=== PATIENT | male | born 1940 | race Caucasian/White ===

== ENCOUNTER 2017-12-21 09:40 | Emergency (ER) | payer MEDICARE, BC ==
[2017-12-21 10:08] VITALS: BP 108/65
[2017-12-21] MEDS ORDERED: Take Home: Acetaminophen/HYDROcodone 325-10 MG, 5 Tab Pack PO ONE (11:23)
--- NOTE | 2017-12-21 11:23 | EDM.PDOC ---
ED HPI GENERAL MEDICAL PROBLEM - General Chief Complaint: Lower Extremity Injury/Pain Stated Complaint: left knee pain Time Seen by Provider: 12/21/17 10:25 Source of Information: Reports: Patient, Family History Limitations: Reports: No Limitations - History of Present Illness INITIAL COMMENTS - FREE TEXT/NARRATIVE: Patient fell on Friday and bruised up his left knee. It has progressively worsened. Only hurts when pressure is applied and he is walking on it. Has been using a compressive knee brace for the swelling. He has no other complaints today. He denies any head injury, no LOC, no dizziness or lightheadedness leading to fall. He does take coumadin. is requesting an INR test due to new dosing. He missed his testing due to his knee injury. Onset Date: 12/19/17 Duration: Getting Worse Location: Reports: Lower Extremity, Left Quality: Reports: Pressure Severity: Moderate Improves with: Reports: Cold Therapy Associated Symptoms: Reports: No Other Symptoms - Related Data Allergies Allergy/AdvReac Type Severity Reaction Status Date / Time No Known Allergies Allergy Verified 12/21/17 10:13 Home Meds: Home Meds Iron 1 tab PO DAILY 03/05/16 [History] Phytonadione [Vitamin K] 1 tab PO ASDIRECTED 03/05/16 [History] Warfarin [Coumadin] 1 tab PO ASDIRECTED 03/05/16 [History] Past Medical History HEENT History: Reports: Cataract Cardiovascular History: Reports: Afib, Heart Failure, Pacemaker, SOB on Exertion Respiratory History: Reports: Sleep Apnea Genitourinary History: Reports: Prostate Disorder Neurological History: Reports: Other (See Below) Other Neuro History: bradykinesia Psychiatric History: Reports: None Endocrine/Metabolic History: Reports: None Hematologic History: Reports: Anemia Immunologic History: Reports: None Oncologic (Cancer) History: Reports: Prostate Dermatologic History: Reports: None - Past Surgical History Head Surgeries/Procedures: Reports: None HEENT Surgical History: Reports: Cataract Surgery GI Surgical History: Reports: Colonoscopy, Hernia Repair/Other Male Surgical History: Reports: Circumcision, TURP-Transurethral Resection of Prostate Musculoskeletal Surgical History: Reports: Shoulder Surgery Social & Family History - Tobacco Use Smoking Status *Q: Unknown Ever Smoked - Alcohol Use Days Per Week of Alcohol Use: 0 Number of Drinks Per Day: 0 Total Drinks Per Week: 0 - Recreational Drug Use Recreational Drug Use: No Drug Use in Last 12 Months: No Review of Systems - Review of Systems Review Of Systems: See Below Constitutional: Reports: No Symptoms Eyes: Reports: No Symptoms Ears: Reports: No Symptoms Nose: Reports: No Symptoms Mouth/Throat: Reports: No Symptoms Respiratory: Reports: No Symptoms Cardiovascular: Reports: No Symptoms GI/Abdominal: Reports: No Symptoms Genitourinary: Reports: No Symptoms Musculoskeletal: Reports: Other (left knee pain, limited rom) Skin: Reports: Bruising (left knee) Neurological: Reports: No Symptoms Psychiatric: Reports: No Symptoms ED EXAM, GENERAL - Physical Exam Exam: See Below Exam Limited By: No Limitations General Appearance: Alert, WD/WN, No Apparent Distress Extremities: Limited Range of Motion (left knee), Other Neurological: Alert, Oriented, CN II-XII Intact, Normal Cognition Course - Vital Signs Last Recorded V/S: Last Vital Signs Temp 35.8 C 12/21/17 09:45 Pulse 73 12/21/17 09:45 Resp 16 12/21/17 09:45 BP 108/65 12/21/17 09:45 Pulse Ox 95 12/21/17 09:45 - Orders/Labs/Meds Orders: Active Orders 24 hr Category Date Time Status Knee 3V Lt [CR] Stat Exams 12/21/17 10:25 Taken Tibia Fibula Lt [CR] Stat Exams 12/21/17 10:25 Taken Labs: Laboratory Tests 12/21/17 Range/Units 11:39 PT 25.1 H D (9.8-11.8) SEC INR 2.4 (2.0-3.5) Meds: Medications Discontinued Medications Generic Name Dose Route Start Last Admin Trade Name Anita PRN Reason Stop Dose Admin Hydrocodone Bitart/Acetaminophen 1 packet 12/21/17 11:23 12/21/17 11:42 Take Home: Acetaminophen/Hydrocodone 325-10mg PO 12/21/17 11:24 1 packet ONETIME ONE Administration Departure - Departure Time of Disposition: 11:50 Disposition: Home, Self-Care 01 Condition: Good Clinical Impression: Contusion of left knee and lower leg - Discharge Information Instructions: Knee Sprain, Adult, [id number] Referrals: Aristeo Lawson MD [Primary Care Provider] - Forms: ED Department Discharge Additional Instructions: I did not see any fractures to your left leg. Your pain is likely related to the soft tissue swelling you are experiencing. Continue to use the knee brace. This will help with the swelling. You also want to elevate your leg and use ice on it. Take the hydrocodone as needed for pain every 4-6 hours. You can also sparingly take some ibuprofen and tylenol for the next couple of days only. If your pain is not improving and is present in 7-10 days, follow up with your primary doctor as an MRI may be needed to rule out any soft tissue damage such as muscle, cartilage, or ligament tears. Please call with any questions or concerns. - Problem List & Annotations (1) Contusion of knee SNOMED Code(s): 34402764 Code(s): S80.00XA - CONTUSION OF UNSPECIFIED KNEE, INITIAL ENCOUNTER Priority: Low - Problem List Review Problem List Initiated/Reviewed/Updated: Yes - My Orders Last 24 Hours: My Active Orders 12/21/17 10:25 Knee 3V Lt [CR] Stat Tibia Fibula Lt [CR] Stat - Assessment/Plan Last 24 Hours: My Active Orders 12/21/17 10:25 Knee 3V Lt [CR] Stat Tibia Fibula Lt [CR] Stat Assessment:: left knee contusion Plan: I did not see any fractures to your left leg. Your pain is likely related to the soft tissue swelling you are experiencing. Continue to use the knee brace. This will help with the swelling. You also want to elevate your leg and use ice on it. Take the hydrocodone as needed for pain every 4-6 hours. You can also sparingly take some ibuprofen and tylenol for the next couple of days only. If your pain is not improving and is present in 7-10 days, follow up with your primary doctor as an MRI may be needed to rule out any soft tissue damage such as muscle, cartilage, or ligament tears. Please call with any questions or concerns.
== END 2017-12-21 11:50 | disposition home or self-care (01) ==
LOC: VM.ED 09:40
DX: S80.02XA Contusion of left knee, initial encounter (principal); I50.9 Heart failure, unspecified; I48.91 Unspecified atrial fibrillation; W10.9XXA Fall (on) (from) unspecified stairs and steps, initial encounter
CPT/HCPCS: 36415; 73562; 73590; 85610; 99283; A9270

== ENCOUNTER 2021-04-14 12:04 | Inpatient (IN) | payer MEDICARE, BC ==
[2021-04-14] MEDS ORDERED: dexAMETHasone 2 MG, dexAMETHasone 4 MG PO ONE ×2 (12:42)
--- NOTE | 2021-04-14 13:33 | EDM.PDOC ---
ED HPI GENERAL MEDICAL PROBLEM - General Chief Complaint: General Stated Complaint: weakness Time Seen by Provider: 04/14/21 12:30 Source of Information: Reports: Patient, Family History Limitations: Reports: No Limitations - History of Present Illness INITIAL COMMENTS - FREE TEXT/NARRATIVE: Patient comes emergency department today from home with his with concerns of worsening weakness. This patient has been "sick" for the past 10 days. Neither his or the patient are able to explain to me what his symptoms of "sick" are for the last 10 days. He was finally seen in the clinic on 04-12-21 and he was diagnosed with Covid. Since his diagnosis of Covid he has felt much more weak despite his "sick for 10 days" of unknown symptoms from the patient and his . Today when he was trying to get up out of bed he just did not have enough energy and he was unable to get out of bed and his could not help him therefore the ambulance was summoned. Upon arrival the patient is alert appropriate. He is rather hard of hearing. It is difficult to obtain a review of systems as the patient really does not answer many questions and tells me I am just tired and weak and he answers no other questions or offer the others complaints. Rest of the review of systems is unable to be obtained as the patient does not offer these answers when I ask him. Treatments [employer]: Reports: IV/IO - Related Data Allergies Allergy/AdvReac Type Severity Reaction Status Date / Time No Known Allergies Allergy Verified 04/14/21 12:49 Home Meds: Home Meds Warfarin [Coumadin] 1 tab PO ASDIRECTED 03/05/16 [History] Abiraterone Acetate [Zytiga] 1,000 mg PO DAILY 10/30/20 [History] Calcium Carb/Vitamin D3/Vit K1 [Calcium + D Soft Chewable Tab] 1 tab PO BID 10/30/20 [History] Cyanocobalamin (Vitamin B12) [Vitamin B12] 1,000 mcg PO DAILY 10/30/20 [History] Furosemide [Lasix] 20 mg PO DAILY PRN 10/30/20 [History] Gabapentin [Neurontin] 200 mg PO BID 10/30/20 [History] Iron 1 tab PO DAILY 10/30/20 [History] Mirtazapine [Remeron] 30 mg PO DAILY 10/30/20 [History] Phytonadione [Vitamin K] 100 mcg PO DAILY 10/30/20 [History] Potassium Chloride 20 meq PO DAILY 10/30/20 [History] Vitamin E 800 units PO BID 10/30/20 [History] predniSONE [Prednisone] 5 mg PO DAILY 10/30/20 [History] Past Medical History HEENT History: Reports: Cataract Cardiovascular History: Reports: Afib, Heart Failure, Pacemaker, SOB on Exertion Respiratory History: Reports: Sleep Apnea Genitourinary History: Reports: Prostate Disorder Neurological History: Reports: Other (See Below) Other Neuro History: bradykinesia Psychiatric History: Reports: None Endocrine/Metabolic History: Reports: None Hematologic History: Reports: Anemia Immunologic History: Reports: None Oncologic (Cancer) History: Reports: Prostate Dermatologic History: Reports: None - Infectious Disease History Infectious Disease History: Reports: Novel Coronavirus - Past Surgical History Head Surgeries/Procedures: Reports: None HEENT Surgical History: Reports: Cataract Surgery Cardiovascular Surgical History: Reports: Other (See Below) Other Cardiovascular Surgeries/Procedures: cardiac cath GI Surgical History: Reports: Colonoscopy, Hernia Repair/Other Male Surgical History: Reports: Circumcision, TURP-Transurethral Resection of Prostate Musculoskeletal Surgical History: Reports: Shoulder Surgery Social & Family History - Family History HEENT: Reports: None Respiratory: Reports: Asthma Other Respiratory Family Hisory: asthma- brother Psychiatric: Reports: Suicide Attempt Other Psychiatric Family History: mother commited suicide Oncologic: Reports: Other (See Below) Other Oncologic Family History: father had "blood cancer" - Tobacco Use Tobacco Use Status *Q: Unknown Ever Used Tobacco - Living Situation & Occupation Living situation: Reports: (Patient has no children of his own but does have children through his .), with Spouse 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 ED EXAM, GENERAL - Physical Exam Exam: See Below Exam Limited By: Other (Some hearing difficulty) General Appearance: Alert, WD/WN, No Apparent Distress Eye Exam: Bilateral Eye: EOMI, PERRL Ears: Normal External Exam Nose: Normal Inspection Throat/Mouth: Normal Inspection Head: Atraumatic, Normocephalic Neck: Normal Inspection Respiratory/Chest: No Respiratory Distress, No Accessory Muscle Use, Chest Non- Tender, Wheezing (Some mild expiratory wheezing bilaterally), Other (No increased work of breathing appears in no distress). No: Crackles, Rales, Rhonchi Cardiovascular: Normal Peripheral Pulses, Regular Rate, Rhythm, No Murmur Peripheral Pulses: 2+: Radial (L), Radial (R) GI/Abdominal: Normal Bowel Sounds, Soft, Non-Tender (Male) Exam: Deferred Rectal (Males) Exam: Deferred Back Exam: Normal Inspection Extremities: Normal Inspection, No Pedal Edema, Normal Capillary Refill Neurological: Alert, Oriented, Normal Cognition, No Motor/Sensory Deficits Psychiatric: Flat Affect Skin Exam: Warm, Dry, Intact, Normal Color, No Rash Course - Vital Signs Last Recorded V/S: Last Vital Signs Temp 99 F 04/14/21 22:00 Pulse 72 04/14/21 22:00 Resp 22 H 04/14/21 22:00 BP 135/90 04/14/21 22:00 Pulse Ox 94 L 04/14/21 23:18 - Orders/Labs/Meds Orders: Active Orders 24 hr Category Date Time Status CULTURE BLOOD [BC] Stat Lab 04/14/21 13:50 Received CULTURE BLOOD [BC] Stat Lab 04/14/21 14:05 Results Sodium Chloride 0.9% [Saline Flush] Med 04/14/21 12:40 Active 10 ml FLUSH ASDIRECTED PRN Blood Culture x2 Reflex Set [OM.PC] Stat Ot 04/14/21 12:40 Ordered Peripheral IV Insertion Adult [OM.PC] Stat Ot 04/14/21 12:40 Ordered Medication Orders Ceftriaxone Sodium (Ceftriaxone 1 Gm Vial) 1 gm IVPUSH DAILY [facility] Last Admin: 04/15/21 00:10 Dose: 1 gm Documented by: FÉLIX Cholecalciferol (Cholecalciferol (Vitamin D3) 25 Mcg Tab) 25 mcg PO DAILY [facility] Last Admin: 04/14/21 18:38 Dose: 25 mcg Documented by: ZARA Gabapentin (Gabapentin 100 Mg Cap) 100 mg PO BEDTIME [facility] Last Admin: 04/14/21 20:41 Dose: 100 mg Documented by: FÉLIX Mirtazapine (Mirtazapine 30 Mg Tab) 30 mg PO BEDTIME [facility] Last Admin: 04/14/21 20:41 Dose: 30 mg Documented by: FÉLIX Ondansetron HCl (Ondansetron 4 Mg Tab.Dis) 4 mg PO Q4H PRN PRN Reason: nausea, able to take PO Ondansetron HCl (Ondansetron 4 Mg/2 Ml Sdv) 4 mg IV Q4H PRN PRN Reason: Nausea/Vomiting Phytonadione (Phytonadione 100 Mcg Tab) 100 mcg PO DAILY [facility] Potassium Chloride (Potassium Chloride 20 Meq Tab.Er) 40 meq PO BIDMEALS [facility] Last Admin: 04/14/21 18:37 Dose: 40 meq Documented by: ZARA Prednisone (Prednisone 5 Mg Tab) 5 mg PO DAILY [facility] Sodium Chloride (Sodium Chloride 0.9% 10 Ml Syringe) 10 ml FLUSH ASDIRECTED PRN PRN Reason: Keep Vein Open Last Admin: 04/15/21 00:10 Dose: 10 ml Documented by: FÉLIX Warfarin Sodium (Warfarin 2.5 Mg Tab) 2.5 mg PO [email or web address] [facility] Warfarin Sodium (Warfarin 5 Mg Tab) 5 mg PO [email or web address] [facility] Last Admin: 04/14/21 20:42 Dose: 5 mg Documented by: FÉLIX Labs: Laboratory Tests 04/14/21 04/14/21 04/14/21 Range/Units 13:11 13:50 13:50 WBC 3.0 L (4.0-10.0) x10^3/uL RBC 4.23 L (4.5-6.0) x10^6/uL Hgb 12.7 L (14.0-18.0) g/dL Hct 38.5 L (40.0-52.0) % MCV 91.0 (78.0-93.0) fL MCH 30.0 (26.0-32.0) pg MCHC 33.0 (32.0-36.0) g/dL RDW Coeff of Nini 13.9 (10.0-15.0) % Plt Count 122 L (130-400) x10^3/uL Add Manual Diff Yes Neutrophils % (Manual) 67 (50-80) % Band Neutrophils % 2 (0-6) % Lymphocytes % (Manual) 14 L (25-50) % Reactive Lymphs % 8 H (0) % Monocytes % (Manual) 9 (2-11) % Platelet Estimate Decreased L Giant Platelets Rare H PT (9.9-12.5) SEC INR (2.0-3.5) APTT (25.6-32.8) SEC D-Dimer, Quantitative (<=0.58) mg/LFEU Sodium 144 (136-145) mmol/L Potassium 2.9 L* (3.5-5.1) mmol/L Chloride 105 (98-107) mmol/L Carbon Dioxide 30 (21-32) mmol/L Anion Gap 11.9 (5-15) mmol/L BUN 12 (7-18) mg/dL Creatinine 1.2 (0.70-1.30) mg/dL Est Cr Clr Drug Dosing TNP Estimated GFR (MDRD) 58 Glucose 97 (70-99) mg/dL Lactic Acid (0.4-2.0) mmol/L Calcium 9.1 (8.5-10.1) mg/dL Corrected Calcium 9.5 (8.5-10.1) mg/dL Magnesium (1.8-2.4) mg/dL Ferritin (26-388) ng/mL Total Bilirubin 0.7 (0.2-1.0) mg/dL AST 29 (15-37) U/L ALT 18 (16-63) U/L Alkaline Phosphatase 50 (46-116) U/L Lactate Dehydrogenase 206 (85-227) U/L Troponin I High Sens 37 (<=76) ng/L C-Reactive Protein 2.6 H (<=0.9) mg/dL Total Protein 7.3 (6.4-8.2) g/dL Albumin 3.5 (3.4-5.0) g/dL Globulin 3.8 Albumin/Globulin Ratio 0.92 Procalcitonin (0.1-0.50) ng/mL Urine Color Yellow (YELLOW) Urine Appearance Slightly cloudy H (CLEAR) Urine pH 6.0 (5.0-8.0) Ur Specific Humphreys >=1.030 Urine Protein 100 H (NEGATIVE) mg/dL Urine Glucose (UA) Negative (NEGATIVE) mg/dL Urine Ketones Negative (NEGATIVE) mg/dL Urine Occult Blood Moderate H (NEGATIVE) Urine Nitrite Negative (NEGATIVE) Urine Bilirubin Negative (NEGATIVE) Urine Urobilinogen 0.2 (0.2) EU/dL Ur Leukocyte Esterase Negative (NEGATIVE) U Hyaline Cast (Auto) Moderate Urine RBC 10-20 H (NOT SEEN) /HPF Urine WBC 0-5 (NOT SEEN) /HPF Ur Squamous Epith Cells Few H (NOT SEEN) /HPF Urine Bacteria Not seen (NOT SEEN) /HPF Urine Mucus Not seen (NOT SEEN) /LPF 04/14/21 04/14/21 04/14/21 Range/Units 13:50 13:50 13:50 WBC (4.0-10.0) x10^3/uL RBC (4.5-6.0) x10^6/uL Hgb (14.0-18.0) g/dL Hct (40.0-52.0) % MCV (78.0-93.0) fL MCH (26.0-32.0) pg MCHC (32.0-36.0) g/dL RDW Coeff of Nini (10.0-15.0) % Plt Count (130-400) x10^3/uL Add Manual Diff Neutrophils % (Manual) (50-80) % Band Neutrophils % (0-6) % Lymphocytes % (Manual) (25-50) % Reactive Lymphs % (0) % Monocytes % (Manual) (2-11) % Platelet Estimate Giant Platelets PT (9.9-12.5) SEC INR (2.0-3.5) APTT (25.6-32.8) SEC D-Dimer, Quantitative 0.43 (<=0.58) mg/LFEU Sodium (136-145) mmol/L Potassium (3.5-5.1) mmol/L Chloride (98-107) mmol/L Carbon Dioxide (21-32) mmol/L Anion Gap (5-15) mmol/L BUN (7-18) mg/dL Creatinine (0.70-1.30) mg/dL Est Cr Clr Drug Dosing Estimated GFR (MDRD) Glucose (70-99) mg/dL Lactic Acid 1.7 (0.4-2.0) mmol/L Calcium (8.5-10.1) mg/dL Corrected Calcium (8.5-10.1) mg/dL Magnesium (1.8-2.4) mg/dL Ferritin 450 H (26-388) ng/mL Total Bilirubin (0.2-1.0) mg/dL AST (15-37) U/L ALT (16-63) U/L Alkaline Phosphatase (46-116) U/L Lactate Dehydrogenase (85-227) U/L Troponin I High Sens (<=76) ng/L C-Reactive Protein (<=0.9) mg/dL Total Protein (6.4-8.2) g/dL Albumin (3.4-5.0) g/dL Globulin Albumin/Globulin Ratio Procalcitonin (0.1-0.50) ng/mL Urine Color (YELLOW) Urine Appearance (CLEAR) Urine pH (5.0-8.0) Ur Specific Humphreys Urine Protein (NEGATIVE) mg/dL Urine Glucose (UA) (NEGATIVE) mg/dL Urine Ketones (NEGATIVE) mg/dL Urine Occult Blood (NEGATIVE) Urine Nitrite (NEGATIVE) Urine Bilirubin (NEGATIVE) Urine Urobilinogen (0.2) EU/dL Ur Leukocyte Esterase (NEGATIVE) U Hyaline Cast (Auto) Urine RBC (NOT SEEN) /HPF Urine WBC (NOT SEEN) /HPF Ur Squamous Epith Cells (NOT SEEN) /HPF Urine Bacteria (NOT SEEN) /HPF Urine Mucus (NOT SEEN) /LPF 04/14/21 04/14/21 04/14/21 Range/Units 13:50 13:50 13:50 WBC (4.0-10.0) x10^3/uL RBC (4.5-6.0) x10^6/uL Hgb (14.0-18.0) g/dL Hct (40.0-52.0) % MCV (78.0-93.0) fL MCH (26.0-32.0) pg MCHC (32.0-36.0) g/dL RDW Coeff of Nini (10.0-15.0) % Plt Count (130-400) x10^3/uL Add Manual Diff Neutrophils % (Manual) (50-80) % Band Neutrophils % (0-6) % Lymphocytes % (Manual) (25-50) % Reactive Lymphs % (0) % Monocytes % (Manual) (2-11) % Platelet Estimate Giant Platelets PT 22.8 H D (9.9-12.5) SEC INR 2.1 (2.0-3.5) APTT 37.6 H (25.6-32.8) SEC D-Dimer, Quantitative (<=0.58) mg/LFEU Sodium (136-145) mmol/L Potassium (3.5-5.1) mmol/L Chloride (98-107) mmol/L Carbon Dioxide (21-32) mmol/L Anion Gap (5-15) mmol/L BUN (7-18) mg/dL Creatinine (0.70-1.30) mg/dL Est Cr Clr Drug Dosing Estimated GFR (MDRD) Glucose (70-99) mg/dL Lactic Acid (0.4-2.0) mmol/L Calcium (8.5-10.1) mg/dL Corrected Calcium (8.5-10.1) mg/dL Magnesium 2.2 (1.8-2.4) mg/dL Ferritin (26-388) ng/mL Total Bilirubin (0.2-1.0) mg/dL AST (15-37) U/L ALT (16-63) U/L Alkaline Phosphatase (46-116) U/L Lactate Dehydrogenase (85-227) U/L Troponin I High Sens (<=76) ng/L C-Reactive Protein (<=0.9) mg/dL Total Protein (6.4-8.2) g/dL Albumin (3.4-5.0) g/dL Globulin Albumin/Globulin Ratio Procalcitonin <0.05 L (0.1-0.50) ng/mL Urine Color (YELLOW) Urine Appearance (CLEAR) Urine pH (5.0-8.0) Ur Specific Humphreys Urine Protein (NEGATIVE) mg/dL Urine Glucose (UA) (NEGATIVE) mg/dL Urine Ketones (NEGATIVE) mg/dL Urine Occult Blood (NEGATIVE) Urine Nitrite (NEGATIVE) Urine Bilirubin (NEGATIVE) Urine Urobilinogen (0.2) EU/dL Ur Leukocyte Esterase (NEGATIVE) U Hyaline Cast (Auto) Urine RBC (NOT SEEN) /HPF Urine WBC (NOT SEEN) /HPF Ur Squamous Epith Cells (NOT SEEN) /HPF Urine Bacteria (NOT SEEN) /HPF Urine Mucus (NOT SEEN) /LPF Meds: Medications Generic Name Dose Route Start Last Admin Trade Name Freq PRN Reason Stop Dose Admin Ceftriaxone Sodium 1 gm 04/14/21 23:45 04/15/21 00:10 Ceftriaxone 1 Gm Vial IVPUSH 1 gm DAILY ELSIE Administration Cholecalciferol 25 mcg 04/14/21 16:15 04/14/21 18:38 Cholecalciferol (Vitamin D3) 25 Mcg Tab PO 25 mcg DAILY ELSIE Administration Gabapentin 100 mg 04/14/21 20:00 04/14/21 20:41 Gabapentin 100 Mg Cap PO 100 mg BEDTIME ELSIE Administration Mirtazapine 30 mg 04/14/21 20:00 04/14/21 20:41 Mirtazapine 30 Mg Tab PO 30 mg BEDTIME ELSIE Administration Ondansetron HCl 4 mg 04/14/21 16:21 Ondansetron 4 Mg Tab.Dis PO Q4H PRN nausea, able to take PO Ondansetron HCl 4 mg 04/14/21 16:21 Ondansetron 4 Mg/2 Ml Sdv IV Q4H PRN Nausea/Vomiting Phytonadione 100 mcg 04/15/21 08:00 Phytonadione 100 Mcg Tab PO DAILY ELSIE Potassium Chloride 40 meq 04/14/21 16:15 04/14/21 18:37 Potassium Chloride 20 Meq Tab.Er PO 40 meq BIDMEALS ELSIE Administration Prednisone 5 mg 04/15/21 08:00 Prednisone 5 Mg Tab PO DAILY ELSIE Sodium Chloride 10 ml 04/14/21 12:40 04/15/21 00:10 Sodium Chloride 0.9% 10 Ml Syringe FLUSH 10 ml ASDIRECTED PRN Administration Keep Vein Open Warfarin Sodium 2.5 mg 04/16/21 20:00 Warfarin 2.5 Mg Tab PO [email or web address] [facility] Warfarin Sodium 5 mg 04/14/21 20:00 04/14/21 20:42 Warfarin 5 Mg Tab PO 5 mg [email or web address] [facility] Administration Discontinued Medications Generic Name Dose Route Start Last Admin Trade Name Freq PRN Reason Stop Dose Admin Dexamethasone 2 mg/ 6 mg 04/14/21 12:42 04/14/21 12:55 Dexamethasone 4 mg PO 04/14/21 12:43 6 mg ONETIME ONE Administration Lactated Ringer's 1,000 mls @ 150 mls/hr 04/14/21 13:45 04/14/21 14:35 Ringers, Lactated IV 150 mls/hr ASDIRECTED [facility] Administration Potassium Chloride 10 meq/ 50 mls @ 50 mls/hr 04/14/21 14:39 04/14/21 14:45 Premix IV 04/14/21 15:38 50 mls/hr ONETIME ONE Administration Potassium Chloride 20 meq/ 50 mls @ 50 mls/hr 04/14/21 16:05 04/14/21 18:37 Premix IV 04/14/21 17:04 Not Given ONETIME ONE - Radiology Interpretation Free Text/Narrative:: Chest x-ray per radiology shows patchy pulmonary infiltrates bilaterally, left greater than right. Findings are likely infectious, inflammatory in nature as can be seen with atypical viral pneumonia. This is consistent with patient's history of Covid. - Re-Assessments/Exams Free Text/Narrative Re-Assessment/Exam: Due to the patient's recent diagnosis of Covid Covid precautions were taken. Blood cultures x2. IV was established of LR with 250 mill bolus and 150 mils an hour. Dexamethasone 6 mg p.o. Laboratory evaluation with leukopenia with a WBC of 3.0 hemoglobin 12.7. His D-dimer is negative at 0.43. CMP shows a sodium of 144, potassium 2.9, normal BUN/creatinine. Magnesium normal. Ferritin 450. Lactate dehydrogenase 206. Troponin negative at 37. CRP minimally elevated at 2.6. Procalcitonin less than 0.05. Urinalysis is quite concentrated with urine specific gravity greater than 1.030, 100 of protein, moderate occult blood U RBCs 1020 although this is a urine catheter quick cath sample U WBC 05. It is somewhat difficult to ascertain what his illnesses been prior to today other than knowing that he had a positive Covid test on the . His chest x- ray is consistent with patchy viral pneumonia. He is really not in any re spiratory distress. He is not requiring any oxygenation. Although he is quite hypokalemic. He did have 10 mEq given over an hour in the emergency department. With his severe weakness and his inability to care for himself at home I spoke with Dr. Marybeth Levine HPI ER COURSE findings and concerns were relayed to her. SHe came and saw the patient in the ED and will admit him The patient and his are comfortable with this plan and their questions answered. Departure - Departure Time of Disposition: 16:30 Disposition: Admitted As Inpatient 67 Clinical Impression: Hypokalemia, Pneumonia due to COVID-19 virus, Generalized weakness - Discharge Information Sepsis Event Note (ED) - Evaluation Sepsis Screening Result: No Definite Risk - My Orders Last 24 Hours: My Active Orders 04/14/21 12:40 Sodium Chloride 0.9% [Saline Flush] 10 ml FLUSH ASDIRECTED PRN Blood Culture x2 Reflex Set [OM.PC] Stat Peripheral IV Insertion Adult [OM.PC] Stat 04/14/21 13:50 CULTURE BLOOD [BC] Stat 04/14/21 14:05 CULTURE BLOOD [BC] Stat - Assessment/Plan Last 24 Hours: My Active Orders 04/14/21 12:40 Sodium Chloride 0.9% [Saline Flush] 10 ml FLUSH ASDIRECTED PRN Blood Culture x2 Reflex Set [OM.PC] Stat Peripheral IV Insertion Adult [OM.PC] Stat 04/14/21 13:50 CULTURE BLOOD [BC] Stat 04/14/21 14:05 CULTURE BLOOD [BC] Stat
--- NOTE | 2021-04-14 13:34 | PCM.EKG ---
#1 Interpretation EKG Date: 04/14/21 Time: 13:01 Rhythm: A-Fib Rate (Beats/Min): 93 Staples: Normal P-Wave: Absent QRS: Normal ST-T: Normal QT: Normal Comparison: NA - No Prior EKG
--- NOTE | 2021-04-14 13:40 | CR ---
[id number] RAD/RAD Chest PA or AP 1V EXAM: RAD Chest PA or AP 1V INDICATION: WEAKNESS, COVID-19. COMPARISON: April 14, 2021. DISCUSSION: Left chest wall cardiac conduction device. Cardiomediastinal silhouette is stable in size and contour. Patchy pulmonary infiltrates bilaterally, left greater than right. No pneumothorax or pleural effusion. IMPRESSION: Patchy pulmonary infiltrates bilaterally, left greater than right. Findings are likely infectious/inflammatory in nature as can be seen with atypical/viral pneumonia. This is consistent with patient's history of COVID. Tom Reza DO 04/14/21 [id number] Thank you for allowing us to participate in the care of your patient.
[2021-04-14] MEDS ORDERED: Lactated Ringers 1,000 ML IV SCH (13:45)
[2021-04-14 14:35] LABS: PTT,PARTIAL THROMBOPLSTIN TIME 37.6 SEC (25.6-32.8)
[2021-04-14 14:37] LABS: CHLORIDE,CL 105 mmol/L (98-107); SODIUM,NA 144 mmol/L (136-145)
[2021-04-14 14:39] LABS: ANION GAP 11.9 mmol/L (5-15)
[2021-04-14] MEDS ORDERED: Potassium Chloride Riders 10 MEQ in Premix Bag 1 BAG IV ONE (14:39)
[2021-04-14] MEDS ORDERED: Potassium Chloride Riders 20 MEQ in Premix Bag 1 BAG IV ONE (16:05)
[2021-04-14] MEDS ORDERED: Ondansetron 4 MG Tab.DIS PO PRN (16:21)
[2021-04-14] MEDS ORDERED: Ondansetron 4 MG/2 ML SDV IV PRN (16:21)
[2021-04-14] MEDS: Potassium Chloride 20 MEQ Tab.ER PO SCH (18:37)
[2021-04-14] MEDS: Cholecalciferol (Vitamin D3) 25 MCG Tab PO SCH (18:38)
[2021-04-14] MEDS: Mirtazapine 30 MG Tab PO SCH (20:41)
[2021-04-14] MEDS: Gabapentin 100 MG Cap PO SCH (20:41)
--- NOTE | 2021-04-14 20:41 | HP ---
CHIEF COMPLAINT: Weakness. HISTORY OF PRESENT ILLNESS: This is a 80-year-old male who was seen in the clinic on 04/12/2021 with nine days of COVID symptoms. He tested positive. Weakness and fatigue were his primary symptoms. He has not been more short of breath. He is just coughing a little. No fevers. He is always achy per his . He did not get any infusions as it was reported that he was greater than 10 days from the onset of symptoms yesterday when the note was put in. He therefore was at home with his . He was getting weaker. He was having some urinary frequency. His UA did not show any infection today, just some blood, but it had to be a cath specimen. He did have a scratchy throat and rhinorrhea to start with. was reported to have those symptoms in the clinic too in the note about her . However, she denied that she was having any symptoms. The patient with further review did not get the COVID vaccine because of all his other medical problems going on per his . They do not get the flu shot. He has prostate cancer with metastatic disease. He is on Lupron and Zytiga. He is not a good candidate for chemotherapy. He is on Xgeva monthly for his bones. He has some ataxia due to neuropathy. He is on Coumadin for atrial fibrillation. He had actually seen his primary care doctor about six weeks ago just for weakness and was started on Home Health, having three falls at home. His is most concerned about how he is going to use the bathroom at home. He was incontinent before he came in. ALLERGIES: None. MEDICATION LIST: Reviewed. He is on Coumadin 5 mg Friday, Friday, Friday, and 2.5 Friday, Friday, Friday. He is on the prostate cancer medications as listed above. He is on Pepcid 20 mg twice daily, just started for "COVID visit," Neurontin 100 mg two twice daily, potassium one tablet every day, but the patient's reports that over the last two days, he was not getting it. Zytiga 1000 daily; prednisone 5 mg daily; Lasix 20 mg as needed for swelling, does not look like he uses it consistently; Remeron 30 mg at bedtime; calcium and vitamin D; horse chestnut extract; vitamin B12; vitamin E; iron pills; vitamin K 1000 mcg daily. PAST MEDICAL HISTORY: Reviewed. He has bipolar disorder in the past; prostate cancer with bony metastasis; chronic atrial fibrillation, failed cardioversion, on Coumadin; congestive heart failure with pacemaker, his EF is 65% in 2016; he has of polyneuropathy, but no history of diabetes; obstructive sleep apnea; vitamin B12 deficiency; vitamin E deficiency. PAST SURGICAL HISTORY: The patient has had prostate vaporization in 2013, shoulder surgery on the right for tendons, hernia repair, circumcision, and cardiac cath. FAMILY HISTORY: Both parents are . Father had some type of bone cancer. SOCIAL HISTORY: The patient is . He lives at home with his . 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 They do not have any children listed. He is a nonsmoker. No history of chronic lung disease. He does though use oral tobacco. REVIEW OF SYSTEMS: General: Actually quite difficult from the patient. He is slow to respond. He is hard of hearing. He is quite sleepy, but does answer some questions with yes or no, but lets his speak for him. He had lost about 7 pounds when he came in for the COVID visit. HEENT: No current sore throat. No reported trouble swallowing. Chest: The patient has no chest pain. Otherwise, all systems reviewed and found to be negative unless stated in the HPI. PHYSICAL EXAMINATION: Vital Signs: At the hospital admission His temperature 98.9; pulse 104, irregular; blood pressure 146/58; respiratory rate 22; and O2 of 96% on 1 L. General: He is in no acute distress. Heart: Irregularly irregular. Lungs: Lung sounds are decreased, but no crackles, no wheezes, just decreased respiratory effort. Abdomen: Positive bowel sounds. Soft, nondistended, nontender. Extremities: Warm and dry. No edema. Mental Status: He is alert. He is able to verbalize that he is at the hospital. Skin: Otherwise, his skin is warm and dry, and he is not overly pale. LABORATORY WORK: Does show his white count 3, hemoglobin 12.7, platelets 122. INR 2.1. D-dimer 0.4. Sodium 144, potassium 2.9, chloride 105, bicarb 30, BUN 12, creatinine 1.2, glucose 97, lactic 1.7, calcium 9.1, magnesium 2.2, ferritin 450, bilirubin 0.7, AST 29, ALT 18, alkaline phosphatase 50, LDH 206, troponin 37, CRP 2.6, albumin 3.5, procalcitonin less than 0.05. Urine; 0-5 wbc's, 10-20 rbc's on a cath specimen, suspect it was somewhat traumatic. His EKG showed atrial fibrillation, rate of 53, some mild lateral and inferior ST depression and T-wave flattening. Chest x-ray was consistent with bilateral infiltrates suspicious for COVID-19. A pacemaker is noted in place. ASSESSMENT: 1. COVID-19 infection day 11 with weakness and fatigue. 2. Severe hypokalemia, likely due to not taking his medications. He has not had any diarrhea reported or vomiting to have worsened this. 3. Atrial fibrillation, on chronic anticoagulation. He is rate controlled. 4. Metastatic prostate cancer, on oral treatments. 5. History of bipolar disorder. 6. History of congestive heart failure. No acute symptoms. 7. B12 deficiency. 8. Obstructive sleep apnea. 9. Pacemaker. 10.Neuropathy. PLAN: The patient is admitted for acute cares. We will replace his potassium IV and orally. If he is unable to take his oral potassium, we will have to give him more IV bumps. He already received 10 mEq in the ER. We will monitor with telemetry. We will be replacing potassium. We will start him on some vitamin D. He did get a dose of dexamethasone it looks like in the ER, but we will not continue that as he is not requiring any oxygen. His sats were over 90% on room air. I did discuss also with Infectious Disease and they did not feel that all the vitamins and things were clinically indicated, especially if there was going to be some difficulty with swallowing pills. The focus needs to be replacing the potassium. Initially, his thought he was a code level 2 and in fact in his home health orders, it looks like he was no CPR, but then later she told the nurse that she found some papers and he wanted CPR and he told her that even though when I asked the patient he really looked at me like he did not quite know how to answer. Therefore, the patient is code level 1, but discussed in depth with the patient and his how given his age and medical comorbidities, if his condition was to deteriorate, he would be likely to have no good outcome if he had to go through CPR and intubation and we will continue to discuss this with him daily. Hopefully, he is more alert and rested up tomorrow. Also on exam, there is no focal weakness to suggest the patient has had any stroke. We will continue his home medications for moods. We will continue his same warfarin. We will repeat an INR and lab work tomorrow. MKA: 04/14/2021 18:01:51 MODL: 04/14/2021 20:35:07 /[id number] SUSANNAH
[2021-04-14] MEDS: Warfarin 5 MG Tab PO SCH (20:42)
[2021-04-15] MEDS: cefTRIAXone 1 GM Vial IVPUSH SCH ×2 (00:10→09:46)
[2021-04-15] MEDS: Sodium Chloride 0.9% 10 ML Syringe FLUSH PRN ×3 (00:10→21:05)
[2021-04-15 09:01] LABS: ANION GAP 12.7 mmol/L (5-15)
[2021-04-15] MEDS ORDERED: Potassium Chloride 20 MEQ Tab.ER PO SCH (09:30)
[2021-04-15] MEDS: Phytonadione 100 MCG Tab PO SCH (09:46)
[2021-04-15] MEDS: Cholecalciferol (Vitamin D3) 25 MCG Tab PO SCH (09:47)
[2021-04-15] MEDS: predniSONE 5 MG Tab PO SCH (09:47)
[2021-04-15] MEDS: Potassium Chloride 20 MEQ Tab.ER PO SCH ×2 (09:47)
--- NOTE | 2021-04-15 12:47 | PN ---
Progress Note for SOURAV VELAZCO Date: 04/15/2021 Room #: VM.209 SUBJECTIVE: This is hospital day #2 on a 80-year-old admitted with a COVID-19 infection diagnosed on the but likely symptomatic now for 12 days. Main symptom has been weakness and fatigue. He was just sleeping yesterday. This morning, he is sitting up. He is alert. He did not eat his breakfast, but I helped him get his lunch ready, and he took several bites and drank all the liquids except the coffee. He did good. He was not swallowing. He is just coughing a little. He is not short of breath. He has not been hypoxic. He has been on continuous O2 monitoring, which has been excellent. He had some oxygen placed on him overnight when it dropped to just 91, but he took it off himself this morning. He is not having any pain. He has been up out of bed with nursing to the bathroom. They said, he moved pretty good. He has had some PVCs on telemetry, but his potassium was low. He had missed a couple of doses at home. He has been afebrile other than 100.2 overnight. He was a little confused then, but this morning, he is hard to hearing, but he is oriented. He answers questions appropriately. He asked his on the phone if he fell at home. He had not in the recent days but had previously fell at home. OBJECTIVE: Vital Signs: His temperature is 98, pulse 65, blood pressure 116/65, respiratory rate 18, and O2 of 98% on room air. General: He is in no acute distress. Heart: Regular rate and rhythm. S1, S2 without murmur. Lungs: Lung sounds are clear to auscultation bilaterally without crackles or wheezes. Abdomen: Nondistended, nontender. Extremities: Warm and dry. No edema. Mental Status: Alert and oriented. LABORATORY WORK: His white count 2.5, hemoglobin 13, and platelets 137. INR 2.1. Sodium 141; potassium 3.7; chloride 104; bicarbonate 28; BUN 16; creatinine 1.2, same as yesterday; glucose 111; calcium 8.9; and magnesium 2.3. Rbc's 10 to 20, wbc's 0 to 5. Procalcitonin normal on admission. Culture did show 1/4 gram-positive rods. ASSESSMENT: 1. COVID-19 infection, diagnosed on 04/12/2021. Main symptoms are weakness, fatigue, and probably some confusion from that. He is clinically improving. 2. Severe hypokalemia, resolved. We will continue oral potassium but decrease to once daily. 3. Atrial fibrillation, chronic; rate controlled, on anticoagulation, therapeutic. 4. Metastatic prostate cancer. He is on Zytiga. I have held his doses here, but they can easily be restarted when indicated. 5. History of bipolar disorder. 6. History of congestive heart failure, stable. No symptoms. He was given very minimal fluids in the ER. He should eat and drink on his own. 7. B12 deficiency. 8. Obstructive sleep apnea. 9. Pacemaker. 10.Neuropathy. I had him on decreasing doses of Neurontin. He is not complaining of pain. Given his fatigue and confusion, I think he should stay on the decreasing doses until he is more medically stable. PLAN: The patient will continue acute cares. I am taking him off continuous pulse oximetry, but I will continue to monitor his telemetry as he has had some PVCs. He will continue on oral potassium but now 20 mEq daily. He will be up and working with therapies tomorrow. I anticipate that he could be discharged home as soon as he is medically stable. He is not requiring any oxygen, so no further dexamethasone was given, and he is chronically on prednisone 5 mg daily already at home for his bony metastasis. We will repeat laboratory work in the morning. MKA: 04/15/2021 12:07:13 MODL: 04/15/2021 12:36:12 /[id number]
--- NOTE | 2021-04-15 13:06 | PCM.SN.2 ---
- Free Text/Narrative Note: Addendum that I forgot to list Gram positive bacteremia 1/4 bottles in my note likely a contaminate. Will continue ABX once daily Rocephin until that is confirmed.
[2021-04-15] MEDS: Mirtazapine 30 MG Tab PO SCH (20:51)
[2021-04-15] MEDS: Warfarin 5 MG Tab PO SCH (20:51)
[2021-04-15] MEDS: Gabapentin 100 MG Cap PO SCH (20:51)
[2021-04-16 07:28] LABS: ANION GAP 9.9 mmol/L (5-15)
[2021-04-16] MEDS: Phytonadione 100 MCG Tab PO SCH (08:09)
[2021-04-16] MEDS: Potassium Chloride 20 MEQ Tab.ER PO SCH (08:09)
[2021-04-16] MEDS: Cholecalciferol (Vitamin D3) 25 MCG Tab PO SCH (08:09)
[2021-04-16] MEDS: predniSONE 5 MG Tab PO SCH (08:09)
[2021-04-16] MEDS: cefTRIAXone 1 GM Vial IVPUSH SCH (08:10)
--- NOTE | 2021-04-16 09:53 | PCM.PN ---
- General Info Date of Service: 04/16/21 Admission Dx/Problem (Free Text): COVID 19, Weakness, Fatigue Subjective Update: Wan is a 80-year-old male with a past medical history of metastatic prostate cancer, chronic atrial fibrillation, congestive heart failure, obstructive sleep apnea who was admitted on 04/13/2021 for increased weakness and fatigue secondary to a recently diagnosed COVID19 infection. He was tested in the clinic on 04/12/21. Y from into the ER the following overnight due to increasing weakness and lack of her ability to care for him at home. On admission his potassium was found to be low. Overall, he has been doing well. No respiratory concerns. He would technically be on day 13 of symptoms today. He continues to be fairly weak and unable to care for himself. He hasn't been willing to get up and about on his own nor has he been wanting to feed himself. I did contact his this morning to discuss plans for discharge. Prior to this hospitalization we have been discussing the idea of shelter placement as he was becoming increasingly difficult for her to care for at home. At this time I do believe that we should pursue at least a short-term therapy stay if not even long-term placement for him at the shelter given these concerns. - Review of Systems General: Reports: No Symptoms HEENT: Reports: No Symptoms Pulmonary: Reports: No Symptoms Cardiovascular: Reports: No Symptoms Gastrointestinal: Reports: No Symptoms Systems Review Comment:: Patient unable to provide full ROS, baseline dementia - Patient Data Vitals - Most Recent: Last Vital Signs Temp 99.8 F 04/16/21 05:13 Pulse 82 04/16/21 05:13 Resp 18 04/16/21 05:13 BP 144/64 H 04/16/21 05:13 Pulse Ox 93 L 04/16/21 05:13 Weight - Most Recent: 280 lb I&O - Last 24 Hours: Intake & Output 04/15/21 04/16/21 04/16/21 22:59 06:59 14:59 Intake Total 240 120 Output Total 150 Balance 90 120 Lab Results Last 24 Hours: Laboratory Results - last 24 hr 04/16/21 04/16/21 04/16/21 Range/Units 06:59 06:59 06:59 WBC 4.3 (4.0-10.0) x10^3/uL RBC 4.35 L (4.5-6.0) x10^6/uL Hgb 13.0 L (14.0-18.0) g/dL Hct 38.9 L (40.0-52.0) % MCV 89.4 (78.0-93.0) fL MCH 29.9 (26.0-32.0) pg MCHC 33.4 (32.0-36.0) g/dL RDW Coeff of Nini 13.9 (10.0-15.0) % Plt Count 150 (130-400) x10^3/uL Add Manual Diff Yes Neutrophils % (Manual) 75 (50-80) % Band Neutrophils % 2 (0-6) % Lymphocytes % (Manual) 13 L (25-50) % Monocytes % (Manual) 9 (2-11) % Metamyelocytes % 1 H (0) % Platelet Estimate Adequate PT 22.3 H (9.9-12.5) SEC INR 2.0 (2.0-3.5) Sodium 140 (136-145) mmol/L Potassium 3.9 (3.5-5.1) mmol/L Chloride 105 (98-107) mmol/L Carbon Dioxide 29 (21-32) mmol/L Anion Gap 9.9 (5-15) mmol/L BUN 27 H (7-18) mg/dL Creatinine 1.5 H (0.70-1.30) mg/dL Est Cr Clr Drug Dosing 42.53 mL/min Estimated GFR (MDRD) 45 Glucose 103 H (70-99) mg/dL Calcium 9.3 (8.5-10.1) mg/dL Yung Results Last 24 Hours: Microbiology 04/14/21 14:05 Aerobic Blood Culture - Preliminary Blood - Venous - Lab Draw NO GROWTH AFTER 1 DAY Anaerobic Blood Culture - Preliminary Gram Positive Rods 04/14/21 13:50 Aerobic Blood Culture - Preliminary Blood - Venous NO GROWTH AFTER 1 DAY Anaerobic Blood Culture - Preliminary NO GROWTH AFTER 1 DAY Med Orders - Current: Current Medications Ceftriaxone Sodium (Ceftriaxone 1 Gm Vial) 1 gm IVPUSH DAILY [facility] Last Admin: 04/16/21 08:10 Dose: 1 gm Documented by: Cholecalciferol (Cholecalciferol (Vitamin D3) 25 Mcg Tab) 25 mcg PO DAILY [facility] Last Admin: 04/16/21 08:09 Dose: 25 mcg Documented by: Gabapentin (Gabapentin 100 Mg Cap) 100 mg PO BEDTIME [facility] Last Admin: 04/15/21 20:51 Dose: 100 mg Documented by: Mirtazapine (Mirtazapine 30 Mg Tab) 30 mg PO BEDTIME [facility] Last Admin: 04/15/21 20:51 Dose: 30 mg Documented by: Ondansetron HCl (Ondansetron 4 Mg Tab.Dis) 4 mg PO Q4H PRN PRN Reason: nausea, able to take PO Ondansetron HCl (Ondansetron 4 Mg/2 Ml Sdv) 4 mg IV Q4H PRN PRN Reason: Nausea/Vomiting Last Admin: 04/15/21 09:46 Dose: 4 mg Documented by: Phytonadione (Phytonadione 100 Mcg Tab) 100 mcg PO DAILY [facility] Last Admin: 04/16/21 08:09 Dose: 100 mcg Documented by: Potassium Chloride (Potassium Chloride 20 Meq Tab.Er) 20 meq PO DAILY [facility] Last Admin: 04/16/21 08:09 Dose: 20 meq Documented by: Prednisone (Prednisone 5 Mg Tab) 5 mg PO DAILY [facility] Last Admin: 04/16/21 08:09 Dose: 5 mg Documented by: Sodium Chloride (Sodium Chloride 0.9% 10 Ml Syringe) 10 ml FLUSH ASDIRECTED PRN PRN Reason: Keep Vein Open Last Admin: 04/15/21 21:05 Dose: 10 ml Documented by: Warfarin Sodium (Warfarin 2.5 Mg Tab) 2.5 mg PO [email or web address]@1999 [facility] Warfarin Sodium (Warfarin 5 Mg Tab) 5 mg PO [email or web address]@1999 [facility] Last Admin: 04/15/21 20:51 Dose: 5 mg Documented by: Discontinued Medications Dexamethasone 2 mg/ (Dexamethasone 4 mg) 6 mg PO ONETIME ONE Stop: 04/14/21 12:43 Last Admin: 04/14/21 12:55 Dose: 6 mg Documented by: Lactated Ringer's (Ringers, Lactated) 1,000 mls @ 150 mls/hr IV ASDIRECTED [facility] Last Admin: 04/14/21 14:35 Dose: 150 mls/hr Documented by: Potassium Chloride 10 meq/ (Premix) 50 mls @ 50 mls/hr IV ONETIME ONE Stop: 04/14/21 15:38 Last Admin: 04/14/21 14:45 Dose: 50 mls/hr Documented by: Potassium Chloride 20 meq/ (Premix) 50 mls @ 50 mls/hr IV ONETIME ONE Stop: 04/14/21 17:04 Last Admin: 04/14/21 18:37 Dose: Not Given Documented by: Potassium Chloride (Potassium Chloride 20 Meq Tab.Er) 40 meq PO BIDMEALS [facility] Last Admin: 04/15/21 09:47 Dose: Not Given Documented by: Potassium Chloride (Potassium Chloride 20 Meq Tab.Er) 40 meq PO DAILY [facility] - Exam General: Alert, Cooperative, No Acute Distress HEENT: EOMI, Mucous Membr. Moist/[place] Neck: Supple Lungs: Clear to Auscultation, Normal Respiratory Effort, Other (breath sounds very tough to hear with the negative pressure fan running in the room) Cardiovascular: Regular Rate, Regular Rhythm GI/Abdominal Exam: Soft, Non-Tender Back Exam: Normal Inspection Extremities: Normal Inspection, No Pedal Edema Skin: Warm, Dry Psy/Mental Status: Alert, Normal Affect, Normal Mood - Patient Data Lab Results Last 24 hrs: Laboratory Results - last 24 hr 04/16/21 04/16/21 04/16/21 Range/Units 06:59 06:59 06:59 WBC 4.3 (4.0-10.0) x10^3/uL RBC 4.35 L (4.5-6.0) x10^6/uL Hgb 13.0 L (14.0-18.0) g/dL Hct 38.9 L (40.0-52.0) % MCV 89.4 (78.0-93.0) fL MCH 29.9 (26.0-32.0) pg MCHC 33.4 (32.0-36.0) g/dL RDW Coeff of Nini 13.9 (10.0-15.0) % Plt Count 150 (130-400) x10^3/uL Add Manual Diff Yes Neutrophils % (Manual) 75 (50-80) % Band Neutrophils % 2 (0-6) % Lymphocytes % (Manual) 13 L (25-50) % Monocytes % (Manual) 9 (2-11) % Metamyelocytes % 1 H (0) % Platelet Estimate Adequate PT 22.3 H (9.9-12.5) SEC INR 2.0 (2.0-3.5) Sodium 140 (136-145) mmol/L Potassium 3.9 (3.5-5.1) mmol/L Chloride 105 (98-107) mmol/L Carbon Dioxide 29 (21-32) mmol/L Anion Gap 9.9 (5-15) mmol/L BUN 27 H (7-18) mg/dL Creatinine 1.5 H (0.70-1.30) mg/dL Est Cr Clr Drug Dosing 42.53 mL/min Estimated GFR (MDRD) 45 Glucose 103 H (70-99) mg/dL Calcium 9.3 (8.5-10.1) mg/dL Result Diagrams: 04/16/21 06:59 04/16/21 06:59 Yung Results Last 24 hrs: Microbiology 04/14/21 14:05 Aerobic Blood Culture - Preliminary Blood - Venous - Lab Draw NO GROWTH AFTER 1 DAY Anaerobic Blood Culture - Preliminary Gram Positive Rods 04/14/21 13:50 Aerobic Blood Culture - Preliminary Blood - Venous NO GROWTH AFTER 1 DAY Anaerobic Blood Culture - Preliminary NO GROWTH AFTER 1 DAY Sepsis Event Note - Evaluation Sepsis Screening Result: No Definite Risk - Focused Exam Vital Signs: Vital Signs Temp Pulse Resp BP Pulse Ox 04/16/21 05:13 99.8 F 82 18 144/64 H 93 L 04/16/21 02:00 84 18 124/70 96 - Problem List & Annotations (1) Generalized weakness SNOMED Code(s): 19700378 Code(s): R53.1 - WEAKNESS Status: Acute Current Visit: Yes (2) Hypokalemia SNOMED Code(s): 95831072 Code(s): E87.6 - HYPOKALEMIA Status: Acute Current Visit: Yes (3) Pneumonia due to COVID-19 virus SNOMED Code(s): 476705736062563438 Code(s): U07.1 - COVID-19; J12.82 - PNEUMONIA DUE TO CORONAVIRUS DISEASE 2019 Status: Acute Current Visit: Yes - Problem List Review Problem List Initiated/Reviewed/Updated: Yes - Plan Plan:: Wan is a 80yoM who is HD#3 for COVID/Weakness/Fatigue and hypokalemia. COVID 19 Generalized Weakness/Fatigue - Diagnosed outpatient on 04/12/21, symptoms for 10 days prior to that - Clinically stable Plan: - Long discussion had with about placement at time of discharge. At this time it is felt that he would best be served at the shelter. We will have our dependency case manager work on this. - PT consult - CM consult Hypokalemia, severe - resolved Chronic: - Atrial fibrillation: Rate controlled, continue warfarin, INR's - Metastatic prostate cancer: We'll restart his zytiga at time of discharge. Continue home prednisone. Has a follow-up appointment in [place] on 04/23/2021 - Bipolar disorder: Currently not on any medication - CHF: Stable, home Lasix - WALI - Neuropathy Diet: Heart healthy as tolerated DVT: oral anticoag Code: FULL Disposition: Discussed discharge planning with his this morning. She has been having more and more difficulty with caring for him at home. Given the worsened weakness I do think that he would be a candidate for short-term stay for therapies if not even long-term stay at [facility]. Did discuss this with her dependency case manager. She will work on starting the process for placement at [facility] at the time of discharge. Discussed that I am not sure as to time frame of him being placed there given the positive Covid test on 04/12/21 and symptoms for 10 days prior. These details will be worked on the coming days.
[2021-04-16] MEDS: Gabapentin 100 MG Cap PO SCH (21:00)
[2021-04-16] MEDS: Mirtazapine 30 MG Tab PO SCH (21:00)
[2021-04-16] MEDS: Warfarin 2.5 MG Tab PO SCH (21:00)
[2021-04-17] MEDS: Potassium Chloride 20 MEQ Tab.ER PO SCH (09:15)
[2021-04-17] MEDS: Cholecalciferol (Vitamin D3) 25 MCG Tab PO SCH (09:15)
[2021-04-17] MEDS: predniSONE 5 MG Tab PO SCH (09:15)
[2021-04-17] MEDS: cefTRIAXone 1 GM Vial IVPUSH SCH (09:15)
[2021-04-17] MEDS: Phytonadione 100 MCG Tab PO SCH (09:15)
--- NOTE | 2021-04-17 10:15 | PCM.PN ---
- General Info Date of Service: 04/17/21 Admission Dx/Problem (Free Text): COVID 19, Weakness, Fatigue Subjective Update: Wan is a 80-year-old male with a past medical history of metastatic prostate cancer, chronic atrial fibrillation, congestive heart failure, obstructive sleep apnea who was admitted on 04/13/2021 for increased weakness and fatigue secondary to a recently diagnosed COVID19 infection. He was tested in the clinic on 04/12/21. brought him into the ER the following overnight due to increasing weakness and lack of her ability to care for him at home. On admission his potassium was found to be low. Overall, he has been doing well. No respiratory concerns. He would technically be on day 14 of symptoms today. He continues to be fairly weak; not yet getting up/out of the bed. Is feeding himself and more interactive on rounds this morning. 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) HEENT: Reports: No Symptoms Pulmonary: Reports: No Symptoms Cardiovascular: Reports: No Symptoms Gastrointestinal: Reports: No Symptoms Genitourinary: Reports: No Symptoms Musculoskeletal: Reports: No Symptoms Skin: Reports: No Symptoms Neurological: Reports: No Symptoms Psychiatric: Reports: No Symptoms - Patient Data Vitals - Most Recent: Last Vital Signs Temp 98.1 F 04/17/21 09:30 Pulse 68 04/17/21 09:30 Resp 18 04/17/21 09:30 BP 135/68 04/17/21 09:30 Pulse Ox 94 L 04/17/21 09:30 Weight - Most Recent: 195 lb I&O - Last 24 Hours: Intake & Output 04/16/21 04/17/21 04/17/21 22:59 06:59 14:59 Intake Total 150 Balance 150 Yung Results Last 24 Hours: Microbiology 04/14/21 14:05 Blood Culture Identification Panel - Preliminary Blood - Venous - Lab Draw Gram Negative Rods 04/14/21 14:05 Aerobic Blood Culture - Preliminary Blood - Venous - Lab Draw NO GROWTH AFTER 2 DAYS Anaerobic Blood Culture - Preliminary Gram Negative Rods 04/14/21 13:50 Aerobic Blood Culture - Preliminary Blood - Venous NO GROWTH AFTER 2 DAYS Anaerobic Blood Culture - Preliminary NO GROWTH AFTER 2 DAYS Med Orders - Current: Current Medications Ceftriaxone Sodium (Ceftriaxone 1 Gm Vial) 1 gm IVPUSH DAILY [facility] Last Admin: 04/17/21 09:15 Dose: 1 gm Documented by: Cholecalciferol (Cholecalciferol (Vitamin D3) 25 Mcg Tab) 25 mcg PO DAILY [facility] Last Admin: 04/17/21 09:15 Dose: 25 mcg Documented by: Gabapentin (Gabapentin 100 Mg Cap) 100 mg PO BEDTIME [facility] Last Admin: 04/16/21 21:00 Dose: 100 mg Documented by: Mirtazapine (Mirtazapine 30 Mg Tab) 30 mg PO BEDTIME [facility] Last Admin: 04/16/21 21:00 Dose: 30 mg Documented by: Ondansetron HCl (Ondansetron 4 Mg Tab.Dis) 4 mg PO Q4H PRN PRN Reason: nausea, able to take PO Ondansetron HCl (Ondansetron 4 Mg/2 Ml Sdv) 4 mg IV Q4H PRN PRN Reason: Nausea/Vomiting Last Admin: 04/15/21 09:46 Dose: 4 mg Documented by: Phytonadione (Phytonadione 100 Mcg Tab) 100 mcg PO DAILY [facility] Last Admin: 04/17/21 09:15 Dose: 100 mcg Documented by: Potassium Chloride (Potassium Chloride 20 Meq Tab.Er) 20 meq PO DAILY [facility] Last Admin: 04/17/21 09:15 Dose: 20 meq Documented by: Prednisone (Prednisone 5 Mg Tab) 5 mg PO DAILY [facility] Last Admin: 04/17/21 09:15 Dose: 5 mg Documented by: Sodium Chloride (Sodium Chloride 0.9% 10 Ml Syringe) 10 ml FLUSH ASDIRECTED PRN PRN Reason: Keep Vein Open Last Admin: 04/15/21 21:05 Dose: 10 ml Documented by: Warfarin Sodium (Warfarin 2.5 Mg Tab) 2.5 mg PO [email or web address] [facility] Last Admin: 04/16/21 21:00 Dose: 2.5 mg Documented by: Warfarin Sodium (Warfarin 5 Mg Tab) 5 mg PO [email or web address] [facility] Last Admin: 04/15/21 20:51 Dose: 5 mg Documented by: Discontinued Medications Dexamethasone 2 mg/ (Dexamethasone 4 mg) 6 mg PO ONETIME ONE Stop: 04/14/21 12:43 Last Admin: 04/14/21 12:55 Dose: 6 mg Documented by: Lactated Ringer's (Ringers, Lactated) 1,000 mls @ 150 mls/hr IV ASDIRECTED [facility] Last Admin: 04/14/21 14:35 Dose: 150 mls/hr Documented by: Potassium Chloride 10 meq/ (Premix) 50 mls @ 50 mls/hr IV ONETIME ONE Stop: 04/14/21 15:38 Last Admin: 04/14/21 14:45 Dose: 50 mls/hr Documented by: Potassium Chloride 20 meq/ (Premix) 50 mls @ 50 mls/hr IV ONETIME ONE Stop: 04/14/21 17:04 Last Admin: 04/14/21 18:37 Dose: Not Given Documented by: Potassium Chloride (Potassium Chloride 20 Meq Tab.Er) 40 meq PO BIDMEALS [facility] Last Admin: 04/15/21 09:47 Dose: Not Given Documented by: Potassium Chloride (Potassium Chloride 20 Meq Tab.Er) 40 meq PO DAILY [facility] - Exam General: Alert, Oriented, Cooperative, No Acute Distress HEENT: EOMI, Mucous Membr. Moist/[place] Neck: Supple Lungs: Clear to Auscultation, Normal Respiratory Effort Cardiovascular: Regular Rate, Irregular Rhythm GI/Abdominal Exam: Normal Bowel Sounds, Soft, Non-Tender Extremities: Normal Inspection, Non-Tender Skin: Warm, Dry Psy/Mental Status: Alert, Normal Affect, Normal Mood - Patient Data Result Diagrams: 04/16/21 06:59 04/16/21 06:59 Yung Results Last 24 hrs: Microbiology 04/14/21 14:05 Blood Culture Identification Panel - Preliminary Blood - Venous - Lab Draw Gram Negative Rods 04/14/21 14:05 Aerobic Blood Culture - Preliminary Blood - Venous - Lab Draw NO GROWTH AFTER 2 DAYS Anaerobic Blood Culture - Preliminary Gram Negative Rods 04/14/21 13:50 Aerobic Blood Culture - Preliminary Blood - Venous NO GROWTH AFTER 2 DAYS Anaerobic Blood Culture - Preliminary NO GROWTH AFTER 2 DAYS Sepsis Event Note - Evaluation Sepsis Screening Result: No Definite Risk - Focused Exam Vital Signs: Vital Signs Temp Pulse Resp BP Pulse Ox 04/17/21 09:30 98.1 F 68 18 135/68 94 L 04/17/21 06:00 97.3 F 67 18 94 L 04/17/21 02:00 97.4 F 63 18 123/70 93 L - Problem List & Annotations (1) Generalized weakness SNOMED Code(s): 23266020 Code(s): R53.1 - WEAKNESS Status: Acute Current Visit: Yes (2) Hypokalemia SNOMED Code(s): 24728388 Code(s): E87.6 - HYPOKALEMIA Status: Acute Current Visit: Yes (3) Pneumonia due to COVID-19 virus SNOMED Code(s): 740862463806697797 Code(s): U07.1 - COVID-19; J12.82 - PNEUMONIA DUE TO CORONAVIRUS DISEASE 2019 Status: Acute Current Visit: Yes - Problem List Review Problem List Initiated/Reviewed/Updated: Yes - My Orders Last 24 Hours: My Active Orders 04/16/21 10:06 Consult to Case Management/Armed Guard [CONS] Routine - Plan Plan:: Wan is a 80yoM who is HD#4 for COVID/Weakness/Fatigue and hypokalemia. COVID 19 Generalized Weakness/Fatigue - Diagnosed outpatient on 04/12/21, symptoms for 10 days prior to that - Clinically stable Plan: - Long discussion had with about placement at time of discharge. At this time it is felt that he [facility] at the [facility]. We will have our upper caser work on this. - PT consult - CM consult Hypokalemia, severe - resolved Chronic: - Atrial fibrillation: Rate controlled, continue warfarin, INR's - Metastatic prostate cancer: We'll restart his zytiga at time of discharge. Continue home prednisone. Has a follow-up appointment in [place] on 04/23/2021 - Bipolar disorder: Currently not on any medication - CHF: Stable, home Lasix - [facility]I - Neuropathy Diet: Heart healthy as tolerated DVT: oral anticoag Code: FULL Disposition: Awaiting word back on placement on [facility]. Continue to encourage therapies and diet. I am not sure as to time frame of him being placed there given the positive Covid test on 04/12/21 and symptoms for 10 days prior. Will continue to work with CM on discharge disposition.
[2021-04-17] MEDS: Mirtazapine 30 MG Tab PO SCH (20:10)
[2021-04-17] MEDS: Gabapentin 100 MG Cap PO SCH (20:10)
[2021-04-17] MEDS: Warfarin 5 MG Tab PO SCH (20:10)
[2021-04-17] MEDS: Acetaminophen 325 MG Tab PO PRN (23:00)
[2021-04-18 07:06] LABS: ANION GAP 9.3 mmol/L (5-15)
[2021-04-18] MEDS: cefTRIAXone 1 GM Vial IVPUSH SCH (09:01)
[2021-04-18] MEDS: predniSONE 5 MG Tab PO SCH (09:02)
[2021-04-18] MEDS: Cholecalciferol (Vitamin D3) 25 MCG Tab PO SCH (09:02)
[2021-04-18] MEDS: Phytonadione 100 MCG Tab PO SCH (09:02)
[2021-04-18] MEDS: Potassium Chloride 20 MEQ Tab.ER PO SCH (09:02)
[2021-04-18] MEDS ORDERED: Potassium Chloride 10 MEQ Tab.ER PO ONE (09:51)
--- NOTE | 2021-04-18 10:30 | CR ---
[id number] RAD/RAD Chest PA or AP 1V EXAM: RAD Chest PA or AP 1V INDICATION: COUGH. COMPARISON: April 14, 2021. DISCUSSION/IMPRESSION: Cardiomegaly and central vascular congestion. Left chest wall cardiac conduction device in place. Bibasal parenchymal opacities left greater than right. Findings in the left lung base were not seen previously. Correlate for signs of infection as this could represent pneumonia. Otherwise, no significant change. Clayton Lopez MD 04/18/21 [id number] Thank you for allowing us to participate in the care of your patient.
--- NOTE | 2021-04-18 11:14 | PCM.PN ---
- General Info Date of Service: 04/18/21 Admission Dx/Problem (Free Text): COVID 19, Weakness, Fatigue Subjective Update: Wan is a 80-year-old male with a past medical history of metastatic prostate cancer, chronic atrial fibrillation, congestive heart failure, obstructive sleep apnea who was admitted on 04/13/2021 for increased weakness and fatigue secondary to a recently diagnosed COVID19 infection. He was tested in the clinic on 04/12/21. brought him into the ER the following overnight due to increasing weakness and lack of her ability to care for him at home. On admission his potassium was found to be low. Overall, he has been doing well. Mild cough continues. He would technically be on day 15 of symptoms today. Did discuss taking him off of isolation today; I believe that this is the right thing to do at this point. More alert and does look stronger this morning. Did receive a call overnight for fever of 100.2. Temperatures have been normal for the rest of the day. Remainder of vital signs are stable. CBC with no elevation in the white blood cell count or left shift. Chest x-ray with maybe some increased haziness in the left lower lobe. - Review of Systems General: Reports: Weakness, Fatigue HEENT: Reports: No Symptoms Pulmonary: Reports: No Symptoms Cardiovascular: Reports: No Symptoms Gastrointestinal: Reports: No Symptoms Genitourinary: Reports: No Symptoms Musculoskeletal: Reports: No Symptoms Skin: Reports: No Symptoms Neurological: Reports: No Symptoms Psychiatric: Reports: No Symptoms - Patient Data Vitals - Most Recent: Last Vital Signs Temp 98.7 F 04/18/21 10:00 Pulse 73 04/18/21 10:00 Resp 20 04/18/21 10:00 BP 131/71 04/18/21 10:00 Pulse Ox 92 L 04/18/21 10:00 Weight - Most Recent: 195 lb I&O - Last 24 Hours: Intake & Output 04/17/21 04/18/21 04/18/21 22:59 06:59 14:59 Intake Total 480 Balance 480 Lab Results Last 24 Hours: Laboratory Results - last 24 hr 04/18/21 04/18/21 Range/Units 06:30 06:30 WBC 3.9 L (4.0-10.0) x10^3/uL RBC 3.98 L (4.5-6.0) x10^6/uL Hgb 11.9 L (14.0-18.0) g/dL Hct 35.7 L (40.0-52.0) % MCV 89.7 (78.0-93.0) fL MCH 29.9 (26.0-32.0) pg MCHC 33.3 (32.0-36.0) g/dL RDW Coeff of Nini 14.0 (10.0-15.0) % Plt Count 158 (130-400) x10^3/uL Add Manual Diff Yes Neutrophils % (Manual) 70 (50-80) % Band Neutrophils % 5 (0-6) % Lymphocytes % (Manual) 19 L (25-50) % Monocytes % (Manual) 6 (2-11) % Platelet Estimate Adequate Hypochromasia 1+ slight H Anisocytosis 1+ slight H Sodium 140 (136-145) mmol/L Potassium 3.3 L (3.5-5.1) mmol/L Chloride 106 (98-107) mmol/L Carbon Dioxide 28 (21-32) mmol/L Anion Gap 9.3 (5-15) mmol/L BUN 21 H (7-18) mg/dL Creatinine 1.2 (0.70-1.30) mg/dL Est Cr Clr Drug Dosing 51.54 mL/min Estimated GFR (MDRD) 58 Glucose 111 H (70-99) mg/dL Calcium 9.0 (8.5-10.1) mg/dL Yung Results Last 24 Hours: Microbiology 04/14/21 14:05 Aerobic Blood Culture - Preliminary Blood - Venous - Lab Draw NO GROWTH AFTER 3 DAYS Anaerobic Blood Culture - Preliminary Gram Negative Rods 04/14/21 14:05 Blood Culture Identification Panel - Preliminary Blood - Venous - Lab Draw Gram Negative Rods 04/14/21 13:50 Aerobic Blood Culture - Preliminary Blood - Venous NO GROWTH AFTER 3 DAYS Anaerobic Blood Culture - Preliminary NO GROWTH AFTER 3 DAYS Med Orders - Current: Current Medications Acetaminophen (Acetaminophen 325 Mg Tab) 650 mg PO Q6H PRN PRN Reason: Fever Last Admin: 04/17/21 23:00 Dose: 650 mg Documented by: Ceftriaxone Sodium (Ceftriaxone 1 Gm Vial) 1 gm IVPUSH DAILY [facility] Last Admin: 04/18/21 09:01 Dose: 1 gm Documented by: Cholecalciferol (Cholecalciferol (Vitamin D3) 25 Mcg Tab) 25 mcg PO DAILY [facility] Last Admin: 04/18/21 09:02 Dose: 25 mcg Documented by: Gabapentin (Gabapentin 100 Mg Cap) 100 mg PO BEDTIME [facility] Last Admin: 04/17/21 20:10 Dose: 100 mg Documented by: Mirtazapine (Mirtazapine 30 Mg Tab) 30 mg PO BEDTIME [facility] Last Admin: 04/17/21 20:10 Dose: 30 mg Documented by: Ondansetron HCl (Ondansetron 4 Mg Tab.Dis) 4 mg PO Q4H PRN PRN Reason: nausea, able to take PO Ondansetron HCl (Ondansetron 4 Mg/2 Ml Sdv) 4 mg IV Q4H PRN PRN Reason: Nausea/Vomiting Last Admin: 04/15/21 09:46 Dose: 4 mg Documented by: Phytonadione (Phytonadione 100 Mcg Tab) 100 mcg PO DAILY [facility] Last Admin: 04/18/21 09:02 Dose: 100 mcg Documented by: Potassium Chloride (Potassium Chloride 20 Meq Tab.Er) 20 meq PO DAILY [facility] Last Admin: 04/18/21 09:02 Dose: 20 meq Documented by: Prednisone (Prednisone 5 Mg Tab) 5 mg PO DAILY [facility] Last Admin: 04/18/21 09:02 Dose: 5 mg Documented by: Sodium Chloride (Sodium Chloride 0.9% 10 Ml Syringe) 10 ml FLUSH ASDIRECTED PRN PRN Reason: Keep Vein Open Last Admin: 04/15/21 21:05 Dose: 10 ml Documented by: Warfarin Sodium (Warfarin 2.5 Mg Tab) 2.5 mg PO [email or web address] [facility] Last Admin: 04/16/21 21:00 Dose: 2.5 mg Documented by: Warfarin Sodium (Warfarin 5 Mg Tab) 5 mg PO [email or web address] [facility] Last Admin: 04/17/21 20:10 Dose: 5 mg Documented by: Discontinued Medications Dexamethasone 2 mg/ (Dexamethasone 4 mg) 6 mg PO ONETIME ONE Stop: 04/14/21 12:43 Last Admin: 04/14/21 12:55 Dose: 6 mg Documented by: Lactated Ringer's (Ringers, Lactated) 1,000 mls @ 150 mls/hr IV ASDIRECTED [facility] Last Admin: 04/14/21 14:35 Dose: 150 mls/hr Documented by: Potassium Chloride 10 meq/ (Premix) 50 mls @ 50 mls/hr IV ONETIME ONE Stop: 04/14/21 15:38 Last Admin: 04/14/21 14:45 Dose: 50 mls/hr Documented by: Potassium Chloride 20 meq/ (Premix) 50 mls @ 50 mls/hr IV ONETIME ONE Stop: 04/14/21 17:04 Last Admin: 04/14/21 18:37 Dose: Not Given Documented by: Potassium Chloride (Potassium Chloride 20 Meq Tab.Er) 40 meq PO BIDMEALS [facility] Last Admin: 04/15/21 09:47 Dose: Not Given Documented by: Potassium Chloride (Potassium Chloride 20 Meq Tab.Er) 40 meq PO DAILY [facility] Potassium Chloride (Potassium Chloride 10 Meq Tab.Er) 20 meq PO ONETIME ONE Stop: 04/18/21 09:52 Last Admin: 04/18/21 10:52 Dose: 20 meq Documented by: - Exam General: Alert, Cooperative, No Acute Distress HEENT: EOMI, Mucous Membr. Moist/[place] Neck: Supple Lungs: Normal Respiratory Effort, Rales (Faint, bilateral bases) Cardiovascular: Regular Rate, Irregular Rhythm GI/Abdominal Exam: Normal Bowel Sounds, Soft, Non-Tender Extremities: Non-Tender, No Pedal Edema Skin: Warm, Dry Neurological: No New Focal Deficit Psy/Mental Status: Alert, Normal Affect, Normal Mood - Patient Data Lab Results Last 24 hrs: Laboratory Results - last 24 hr 04/18/21 04/18/21 Range/Units 06:30 06:30 WBC 3.9 L (4.0-10.0) x10^3/uL RBC 3.98 L (4.5-6.0) x10^6/uL Hgb 11.9 L (14.0-18.0) g/dL Hct 35.7 L (40.0-52.0) % MCV 89.7 (78.0-93.0) fL MCH 29.9 (26.0-32.0) pg MCHC 33.3 (32.0-36.0) g/dL RDW Coeff of Nini 14.0 (10.0-15.0) % Plt Count 158 (130-400) x10^3/uL Add Manual Diff Yes Neutrophils % (Manual) 70 (50-80) % Band Neutrophils % 5 (0-6) % Lymphocytes % (Manual) 19 L (25-50) % Monocytes % (Manual) 6 (2-11) % Platelet Estimate Adequate Hypochromasia 1+ slight H Anisocytosis 1+ slight H Sodium 140 (136-145) mmol/L Potassium 3.3 L (3.5-5.1) mmol/L Chloride 106 (98-107) mmol/L Carbon Dioxide 28 (21-32) mmol/L Anion Gap 9.3 (5-15) mmol/L BUN 21 H (7-18) mg/dL Creatinine 1.2 (0.70-1.30) mg/dL Est Cr Clr Drug Dosing 51.54 mL/min Estimated GFR (MDRD) 58 Glucose 111 H (70-99) mg/dL Calcium 9.0 (8.5-10.1) mg/dL Result Diagrams: 04/18/21 06:30 04/18/21 06:30 Yung Results Last 24 hrs: Microbiology 04/14/21 14:05 Aerobic Blood Culture - Preliminary Blood - Venous - Lab Draw NO GROWTH AFTER 3 DAYS Anaerobic Blood Culture - Preliminary Gram Negative Rods 04/14/21 14:05 Blood Culture Identification Panel - Preliminary Blood - Venous - Lab Draw Gram Negative Rods 04/14/21 13:50 Aerobic Blood Culture - Preliminary Blood - Venous NO GROWTH AFTER 3 DAYS Anaerobic Blood Culture - Preliminary NO GROWTH AFTER 3 DAYS Sepsis Event Note - Evaluation Sepsis Screening Result: No Definite Risk - Focused Exam Vital Signs: Vital Signs Temp Temp Pulse Resp BP Pulse Ox 04/18/21 10:00 98.7 F 73 20 131/71 92 L 04/18/21 06:00 98.1 F 66 20 124/69 93 L 04/18/21 02:15 98.1 F 94 16 106/60 94 L 04/17/21 23:30 98.7 F - Problem List & Annotations (1) Generalized weakness SNOMED Code(s): 54410851 Code(s): R53.1 - WEAKNESS Status: Acute Current Visit: Yes (2) Hypokalemia SNOMED Code(s): 04546964 Code(s): E87.6 - HYPOKALEMIA Status: Acute Current Visit: Yes (3) Pneumonia due to COVID-19 virus SNOMED Code(s): 570261820990336259 Code(s): U07.1 - COVID-19; J12.82 - PNEUMONIA DUE TO CORONAVIRUS DISEASE 2019 Status: Acute Current Visit: Yes - Problem List Review Problem List Initiated/Reviewed/Updated: Yes - My Orders Last 24 Hours: My Active Orders 04/17/21 22:58 Acetaminophen [TylenoL] 650 mg PO Q6H PRN - Plan Plan:: Wan is a 80yoM who is HD#5 for COVID/Weakness/Fatigue and hypokalemia. COVID 19 Generalized Weakness/Fatigue - Diagnosed outpatient on 04/12/21, symptoms for 10 days prior to that - Clinically stable - Did have report of fever last night of 100.2. Chest x-ray with maybe some mild increase in haziness in the left lower lobe this morning. No leukocytosis or left shift noted on the labs. Temperatures have been normal since that check last evening. Plan: - Long discussion had with about placement at time of discharge. At this time it is felt that he [facility]. We will have our case fitter work on this. - PT consult - CM consult - Incentive Spirometry - D/C isolation today given continuation of mild symptoms and >10 days since symptoms onset Hypokalemia, mild - K low again today Plan: - Continue 20mEq oral replacement, extra 20mEq today - Recheck tomorrow Bacteremia, low suspicion - Only 1 out of 4 tubes is positive for bacteria. Gram-negative rods isolated thus far. Further identification and sensitivities pending - Urine negative chest x-ray negative for bacterial pneumonia, labs negative for bacterial infection - At this point I have low suspicion that this is an actual infection and is likely just a contaminant. Plan: - Will continue Rocephin for the time being until we have the Isolette - Continue to monitor the other tubes Chronic: - Atrial fibrillation: Rate controlled, continue warfarin, INR's - Metastatic prostate cancer: We'll restart his zytiga at time of discharge. Continue home prednisone. Has a follow-up appointment in [place] on 04/23/2021 - Bipolar disorder: Currently not on any medication - CHF: Stable, home Lasix - [facility] - Neuropathy Diet: Heart healthy as tolerated DVT: oral anticoag Code: FULL Disposition: Awaiting word back on placement on [facility]. Continue to encourage therapies and diet. We will plan to pull him out of isolation today given his very mild symptoms and the fact that he is on day 14 of symptoms. This will allow for him to work and get up with therapies more. We are still awaiting to hear from [facility] when he will be able to transition there.
[2021-04-18] MEDS: Mirtazapine 30 MG Tab PO SCH (20:11)
[2021-04-18] MEDS: Gabapentin 100 MG Cap PO SCH (20:11)
[2021-04-18] MEDS: Acetaminophen 325 MG Tab PO PRN (20:11)
[2021-04-18] MEDS: Warfarin 2.5 MG Tab PO SCH (20:11)
[2021-04-18] MEDS: Sodium Chloride 0.9% 10 ML Syringe FLUSH PRN (20:14)
[2021-04-19 07:08] LABS: CHLORIDE,CL 104 mmol/L (98-107); SODIUM,NA 141 mmol/L (136-145)
[2021-04-19] MEDS: Cholecalciferol (Vitamin D3) 25 MCG Tab PO SCH (08:56)
[2021-04-19] MEDS: predniSONE 5 MG Tab PO SCH (08:56)
[2021-04-19] MEDS: Sodium Chloride 0.9% 10 ML Syringe FLUSH PRN (08:57)
[2021-04-19] MEDS: Phytonadione 100 MCG Tab PO SCH (08:57)
[2021-04-19] MEDS: cefTRIAXone 1 GM Vial IVPUSH SCH (08:57)
[2021-04-19] MEDS: Potassium Chloride 20 MEQ Tab.ER PO SCH (08:57)
[2021-04-19] MEDS: Acetaminophen 325 MG Tab PO PRN ×2 (09:18→19:25)
--- NOTE | 2021-04-19 15:58 | PCM.PN ---
- General Info Date of Service: 04/19/21 Admission Dx/Problem (Free Text): COVID 19, Weakness, Fatigue Subjective Update: Wan is a 80-year-old male with a past medical history of metastatic prostate cancer, chronic atrial fibrillation, congestive heart failure, obstructive sleep apnea who was admitted on 04/13/2021 for increased weakness and fatigue secondary to a recently diagnosed COVID19 infection. He was tested in the clinic on 04/12/21. brought him into the ER the following overnight due to increasing weakness and lack of her ability to care for him at home. On admission his potassium was found to be low. Continues to do well. Day 16 of symptoms. Was taken out of isolation yesterday. Blood cultures returned 1/ tubes with probably clostridium sp, remainder negative on day 5. Continues on Rocephin. Functional Status: Reports: Pain Controlled - Review of Systems General: Reports: Weakness HEENT: Reports: No Symptoms Pulmonary: Reports: Cough (mild, dry) Cardiovascular: Reports: No Symptoms Gastrointestinal: Reports: No Symptoms Genitourinary: Reports: No Symptoms Musculoskeletal: Reports: No Symptoms Skin: Reports: No Symptoms Psychiatric: Reports: No Symptoms - Patient Data Vitals - Most Recent: Last Vital Signs Temp 98.2 F 04/19/21 14:00 Pulse 58 L 04/19/21 14:00 Resp 20 04/19/21 14:00 BP 94/48 L 04/19/21 14:00 Pulse Ox 93 L 04/19/21 14:00 Weight - Most Recent: 195 lb I&O - Last 24 Hours: Intake & Output 04/19/21 04/19/21 04/19/21 06:59 14:59 22:59 Intake Total 240 Balance 240 Lab Results Last 24 Hours: Laboratory Results - last 24 hr 04/19/21 04/19/21 04/19/21 Range/Units 06:43 06:43 06:43 WBC 4.7 (4.0-10.0) x10^3/uL RBC 4.03 L (4.5-6.0) x10^6/uL Hgb 12.1 L (14.0-18.0) g/dL Hct 36.3 L (40.0-52.0) % MCV 90.1 (78.0-93.0) fL MCH 30.0 (26.0-32.0) pg MCHC 33.3 (32.0-36.0) g/dL RDW Coeff of Nini 14.0 (10.0-15.0) % Plt Count 178 (130-400) x10^3/uL PT 28.5 H (9.9-12.5) SEC INR 2.6 (2.0-3.5) Sodium 141 (136-145) mmol/L Potassium 4.0 (3.5-5.1) mmol/L Chloride 104 (98-107) mmol/L Carbon Dioxide 27 (21-32) mmol/L Anion Gap 14.0 (5-15) mmol/L BUN 22 H (7-18) mg/dL Creatinine 1.1 (0.70-1.30) mg/dL Est Cr Clr Drug Dosing 56.22 mL/min Estimated GFR (MDRD) > 60 Glucose 102 H (70-99) mg/dL Calcium 9.0 (8.5-10.1) mg/dL Yung Results Last 24 Hours: Microbiology 04/14/21 14:05 Aerobic Blood Culture - Final Blood - Venous - Lab Draw NO GROWTH AFTER 5 DAYS Anaerobic Blood Culture - Preliminary Clostridium Species 04/14/21 13:50 Aerobic Blood Culture - Final Blood - Venous NO GROWTH AFTER 5 DAYS Anaerobic Blood Culture - Final NO GROWTH AFTER 5 DAYS 04/14/21 14:05 Blood Culture Identification Panel - Preliminary Blood - Venous - Lab Draw Probable Clostridium Species Med Orders - Current: Current Medications Acetaminophen (Acetaminophen 325 Mg Tab) 650 mg PO Q6H PRN PRN Reason: Fever Last Admin: 04/19/21 09:18 Dose: 650 mg Documented by: Ceftriaxone Sodium (Ceftriaxone 1 Gm Vial) 1 gm IVPUSH DAILY [facility] Last Admin: 04/19/21 08:57 Dose: 1 gm Documented by: Cholecalciferol (Cholecalciferol (Vitamin D3) 25 Mcg Tab) 25 mcg PO DAILY [facility] Last Admin: 04/19/21 08:56 Dose: 25 mcg Documented by: Gabapentin (Gabapentin 100 Mg Cap) 100 mg PO BEDTIME [facility] Last Admin: 04/18/21 20:11 Dose: 100 mg Documented by: Mirtazapine (Mirtazapine 30 Mg Tab) 30 mg PO BEDTIME [facility] Last Admin: 04/18/21 20:11 Dose: 30 mg Documented by: Ondansetron HCl (Ondansetron 4 Mg Tab.Dis) 4 mg PO Q4H PRN PRN Reason: nausea, able to take PO Ondansetron HCl (Ondansetron 4 Mg/2 Ml Sdv) 4 mg IV Q4H PRN PRN Reason: Nausea/Vomiting Last Admin: 04/15/21 09:46 Dose: 4 mg Documented by: Phytonadione (Phytonadione 100 Mcg Tab) 100 mcg PO DAILY [facility] Last Admin: 04/19/21 08:57 Dose: 100 mcg Documented by: Potassium Chloride (Potassium Chloride 20 Meq Tab.Er) 20 meq PO DAILY [facility] Last Admin: 04/19/21 08:57 Dose: 20 meq Documented by: Prednisone (Prednisone 5 Mg Tab) 5 mg PO DAILY [facility] Last Admin: 04/19/21 08:56 Dose: 5 mg Documented by: Sodium Chloride (Sodium Chloride 0.9% 10 Ml Syringe) 10 ml FLUSH ASDIRECTED PRN PRN Reason: Keep Vein Open Last Admin: 04/19/21 08:57 Dose: 10 ml Documented by: Warfarin Sodium (Warfarin 2.5 Mg Tab) 2.5 mg PO [email or web address] [facility] Last Admin: 04/18/21 20:11 Dose: 2.5 mg Documented by: Warfarin Sodium (Warfarin 5 Mg Tab) 5 mg PO [email or web address] [facility] Last Admin: 04/17/21 20:10 Dose: 5 mg Documented by: Discontinued Medications Dexamethasone 2 mg/ (Dexamethasone 4 mg) 6 mg PO ONETIME ONE Stop: 04/14/21 12:43 Last Admin: 04/14/21 12:55 Dose: 6 mg Documented by: Lactated Ringer's (Ringers, Lactated) 1,000 mls @ 150 mls/hr IV ASDIRECTED [facility] Last Admin: 04/14/21 14:35 Dose: 150 mls/hr Documented by: Potassium Chloride 10 meq/ (Premix) 50 mls @ 50 mls/hr IV ONETIME ONE Stop: 04/14/21 15:38 Last Admin: 04/14/21 14:45 Dose: 50 mls/hr Documented by: Potassium Chloride 20 meq/ (Premix) 50 mls @ 50 mls/hr IV ONETIME ONE Stop: 04/14/21 17:04 Last Admin: 04/14/21 18:37 Dose: Not Given Documented by: Potassium Chloride (Potassium Chloride 20 Meq Tab.Er) 40 meq PO BIDMEALS [facility] Last Admin: 04/15/21 09:47 Dose: Not Given Documented by: Potassium Chloride (Potassium Chloride 20 Meq Tab.Er) 40 meq PO DAILY [facility] Potassium Chloride (Potassium Chloride 10 Meq Tab.Er) 20 meq PO ONETIME ONE Stop: 04/18/21 09:52 Last Admin: 04/18/21 10:52 Dose: 20 meq Documented by: - Exam General: Alert, Cooperative, No Acute Distress HEENT: Mucous Membr. Moist/[place] Neck: Supple Lungs: Normal Respiratory Effort, Rales (faint, LLL>RLL) Cardiovascular: Regular Rate, Irregular Rhythm GI/Abdominal Exam: Normal Bowel Sounds, Soft, Non-Tender Extremities: Normal Inspection, Non-Tender, No Pedal Edema Skin: Warm, Dry Psy/Mental Status: Alert, Normal Mood - Patient Data Lab Results Last 24 hrs: Laboratory Results - last 24 hr 04/19/21 04/19/21 04/19/21 Range/Units 06:43 06:43 06:43 WBC 4.7 (4.0-10.0) x10^3/uL RBC 4.03 L (4.5-6.0) x10^6/uL Hgb 12.1 L (14.0-18.0) g/dL Hct 36.3 L (40.0-52.0) % MCV 90.1 (78.0-93.0) fL MCH 30.0 (26.0-32.0) pg MCHC 33.3 (32.0-36.0) g/dL RDW Coeff of Nini 14.0 (10.0-15.0) % Plt Count 178 (130-400) x10^3/uL PT 28.5 H (9.9-12.5) SEC INR 2.6 (2.0-3.5) Sodium 141 (136-145) mmol/L Potassium 4.0 (3.5-5.1) mmol/L Chloride 104 (98-107) mmol/L Carbon Dioxide 27 (21-32) mmol/L Anion Gap 14.0 (5-15) mmol/L BUN 22 H (7-18) mg/dL Creatinine 1.1 (0.70-1.30) mg/dL Est Cr Clr Drug Dosing 56.22 mL/min Estimated GFR (MDRD) > 60 Glucose 102 H (70-99) mg/dL Calcium 9.0 (8.5-10.1) mg/dL Result Diagrams: 04/19/21 06:43 04/19/21 06:43 Yung Results Last 24 hrs: Microbiology 04/14/21 14:05 Aerobic Blood Culture - Final Blood - Venous - Lab Draw NO GROWTH AFTER 5 DAYS Anaerobic Blood Culture - Preliminary Clostridium Species 04/14/21 13:50 Aerobic Blood Culture - Final Blood - Venous NO GROWTH AFTER 5 DAYS Anaerobic Blood Culture - Final NO GROWTH AFTER 5 DAYS 04/14/21 14:05 Blood Culture Identification Panel - Preliminary Blood - Venous - Lab Draw Probable Clostridium Species Sepsis Event Note - Evaluation Sepsis Screening Result: No Definite Risk - Focused Exam Vital Signs: Vital Signs Temp Pulse Resp BP Pulse Ox 04/19/21 14:00 98.2 F 58 L 20 94/48 L 93 L 04/19/21 10:00 98.7 F 67 20 101/56 L 91 L 04/19/21 06:00 97.9 F 71 20 160/75 H 93 L - Problem List & Annotations (1) Generalized weakness SNOMED Code(s): 92591263 Code(s): R53.1 - WEAKNESS Status: Acute Current Visit: Yes (2) Hypokalemia SNOMED Code(s): 56761279 Code(s): E87.6 - HYPOKALEMIA Status: Acute Current Visit: Yes (3) Pneumonia due to COVID-19 virus SNOMED Code(s): 573507122447465788 Code(s): U07.1 - COVID-19; J12.82 - PNEUMONIA DUE TO CORONAVIRUS DISEASE 2019 Status: Acute Current Visit: Yes - Problem List Review Problem List Initiated/Reviewed/Updated: Yes - My Orders Last 24 Hours: My Active Orders 04/19/21 15:51 CULTURE BLOOD [BC] Stat CULTURE BLOOD [BC] Stat Blood Culture x2 Reflex Set [OM.PC] Stat 04/20/21 06:00 COMPREHENSIVE METABOLIC PN,CMP [CHEM] Routine PSA TOTAL%EE [REF] Routine - Plan Plan:: Wan is a 80yoM who is HD#6 for COVID/Weakness/Fatigue and hypokalemia. COVID 19 Generalized Weakness/Fatigue - Diagnosed outpatient on 7/29/21, symptoms for 10 days prior to that - Clinically stable Plan: - Long discussion had with about placement at time of discharge. At this time it is felt that [facility]. We will have our transplant case manager work on this. - PT consult - CM consult - Incentive Spirometry Bacteremia, low suspicion (?contaminant) - Only 1 out of 4 tubes is positive for probably clostridium Sp. Further identification and sensitivities pending - Did call and speak with infectious disease about results. Given clinical picture this is likely a contaminant but was advised to repeat blood cultures to make sure. - Urine negative, chest x-ray negative for bacterial pneumonia, CBC not convincing for bacterial infection - At this point I have low suspicion that this is an actual infection and is likely just a contaminant. Plan: - Will continue Rocephin for the time being until we have the Isolette - Repeat Bld Cx today x2 Hypokalemia - resolved Chronic: - Atrial fibrillation: Rate controlled, continue warfarin, INR's - Metastatic prostate cancer: We'll restart his zytiga at time of discharge. Continue home prednisone. Has a follow-up appointment in [place] on 04/23/2021 - Bipolar disorder: Currently not on any medication - CHF: Stable, home Lasix - WALI - Neuropathy Diet: Heart healthy as tolerated DVT: oral anticoag Code: FULL Disposition: Awaiting word back on placement on [facility]. Continue to encourage therapies and diet. Repeat blood cultures today given 1/4 tubes clostridium.
[2021-04-19] MEDS: Gabapentin 100 MG Cap PO SCH (19:25)
[2021-04-19] MEDS: Warfarin 5 MG Tab PO SCH (19:25)
[2021-04-19] MEDS: Mirtazapine 30 MG Tab PO SCH (19:25)
[2021-04-20 05:08] VITALS: BP 159/79; PULSE 78
[2021-04-20 07:10] LABS: ANION GAP 11.7 mmol/L (5-15)
--- NOTE | 2021-04-20 08:37 | PCM.DCSUM1 ---
Discharge Summary - Hospital Course Free Text/Narrative:: Wan is a 80-year-old male with a past medical history of metastatic prostate cancer, chronic atrial fibrillation, congestive heart failure, obstructive sleep apnea who was admitted on 04/13/2021 for increased weakness and fatigue secondary to a recently diagnosed COVID19 infection. He was tested in the clinic on 04/12/21 after 10 days of symptoms prior to test. brought him into the ER the following overnight due to increasing weakness and lack of her ability to care for him at home. On admission his potassium was found to be low. Potassium was repleted. Has had a benign course in the hospital with no need for supplemental O2 and minimal symptoms (intermittent dry cough). He was removed from isolation on 04/18/21. Ultimate plan is for SNF placement due to ongoing concerns with 's ability to care for him at home. Therapies have been slow-going. The only complicating factor of his hospital stay is 1/4 of his blood cultures returning positive for possible clostridium species. This was discussed with Desean CARRANZA and decision was made to repeat the blood cultures; these repeat cultures are pending at this time. Clinical picture does not warrant strong investigation into bacteremia and this is thought to be contaminant. At this date and time the patient is stable and plan [facility] can be obtained. Now that he has received 5 days of Rocephin we will hold this going forward and monitor clinically for developing infection. - Discharge Data Discharge Date: 04/20/21 Discharge Disposition: DC/Tfer W/I Hosp To [place] [id number] Condition: Fair - Referral to Home Health Primary Care Physician: Chika Carroll MD - Discharge Diagnosis/Problem(s) (1) Generalized weakness SNOMED Code(s): 11039547 ICD Code: R53.1 - WEAKNESS Status: Acute Current Visit: Yes (2) Hypokalemia SNOMED Code(s): 36314298 ICD Code: E87.6 - HYPOKALEMIA Status: Acute Current Visit: Yes (3) Pneumonia due to COVID-19 virus SNOMED Code(s): 506450071844700197 ICD Code: U07.1 - COVID-19; J12.82 - PNEUMONIA DUE TO CORONAVIRUS DISEASE 2019 Status: Acute Current Visit: Yes - Patient Summary/Data Consults: Consultations 04/15/21 12:07 PT Evaluation and Treatment [CONS] Routine 04/16/21 10:06 Consult to Case Management/Cigar Wrapper [CONS] Routine - Discharge Plan *PRESCRIPTION DRUG MONITORING PROGRAM REVIEWED*: Not Applicable *COPY OF PRESCRIPTION DRUG MONITORING REPORT IN PATIENT PAYAL: Not Applicable Home Medications: Home Meds Warfarin [Coumadin] 1 tab PO ASDIRECTED 03/05/16 [History] Abiraterone Acetate [Zytiga] 1,000 mg PO DAILY 10/30/20 [History] Calcium Carb/Vitamin D3/Vit K1 [Calcium + D Soft Chewable Tab] 1 tab PO BID 10/30/20 [History] Cyanocobalamin (Vitamin B12) [Vitamin B12] 1,000 mcg PO DAILY 10/30/20 [History] Furosemide [Lasix] 20 mg PO DAILY PRN 10/30/20 [History] Gabapentin [Neurontin] 200 mg PO BID 10/30/20 [History] Iron 1 tab PO DAILY 10/30/20 [History] Mirtazapine [Remeron] 30 mg PO DAILY 10/30/20 [History] Phytonadione [Vitamin K] 100 mcg PO DAILY 10/30/20 [History] Potassium Chloride 20 meq PO DAILY 10/30/20 [History] Vitamin E 800 units PO BID 10/30/20 [History] predniSONE [Prednisone] 5 mg PO DAILY 10/30/20 [History] Forms: ED Department Discharge Referrals: Chika Carroll MD [Primary Care Provider] - - Discharge Summary/Plan Comment DC Time >30 min.: No Discharge Summary/Plan Comment: Wan is a 80yoM who is HD#7 for COVID/Weakness/Fatigue and hypokalemia. We are downgrading to swing bed status today for ongoing strengthening/cares and anticipation of placement next week COVID 19 Generalized Weakness/Fatigue - Diagnosed outpatient on 04/12/21, symptoms for 10 days prior to that - Clinically stable Plan: - Long discussion had with about placement at time of discharge. At this time it is felt that [facility]. Awaiting a bed/acceptance - PT consult - CM consult - Encourage Incentive Spirometry Bacteremia, low suspicion (?contaminant) - Only 1 out of 4 tubes is positive for probably clostridium Sp. Further identification and sensitivities pending - Did call and speak with infectious disease about results. Given clinical picture this is likely a contaminant but was advised to repeat blood cultures to make sure. - Urine negative, chest x-ray negative for bacterial pneumonia, CBC not convincing for bacterial infection - At this point I have low suspicion that this is an actual infection and is likely just a contaminant. Plan: - Erica FRANK[facility] today - Repeat Bld Cx pending Hypokalemia - resolved Chronic: - Atrial fibrillation: Rate controlled, continue warfarin, INR's - Metastatic prostate cancer: We'll restart his zytiga at time of discharge. Continue home prednisone. Has a follow-up appointment in [place] on 04/23/2021, this has been moved back to 04/27/21. - Bipolar disorder: Currently not on any medication - CHF: Stable, home Lasix - WALI - Neuropathy Diet: Heart healthy as tolerated DVT: oral anticoagulation Code: FULL Disposition: Awaiting word back on placement on [facility]. Downgrade to swing. Continue therapies/cares. Anticipate D/C to [facility] next week - Patient Data Vitals - Most Recent: Last Vital Signs Temp 98.6 F 04/20/21 05:07 Pulse 78 04/20/21 05:07 Resp 16 04/20/21 05:07 BP 159/79 H 04/20/21 05:07 Pulse Ox 94 L 04/20/21 05:07 Weight - Most Recent: 195 lb I&O - Last 24 hours: Intake & Output 04/19/21 04/20/21 04/20/21 22:59 06:59 14:59 Intake Total 120 240 Balance 120 240 Lab Results - Last 24 hrs: Laboratory Results - last 24 hr 04/20/21 Range/Units 06:15 Sodium 141 (136-145) mmol/L Potassium 3.7 (3.5-5.1) mmol/L Chloride 107 (98-107) mmol/L Carbon Dioxide 26 (21-32) mmol/L Anion Gap 11.7 (5-15) mmol/L BUN 21 H (7-18) mg/dL Creatinine 1.2 (0.70-1.30) mg/dL Est Cr Clr Drug Dosing 51.54 mL/min Estimated GFR (MDRD) 58 Glucose 102 H (70-99) mg/dL Calcium 8.7 (8.5-10.1) mg/dL Corrected Calcium 9.7 (8.5-10.1) mg/dL Total Bilirubin 0.5 (0.2-1.0) mg/dL AST 46 H (15-37) U/L ALT 28 (16-63) U/L Alkaline Phosphatase 40 L (46-116) U/L Total Protein 6.5 (6.4-8.2) g/dL Albumin 2.7 L (3.4-5.0) g/dL Globulin 3.8 Albumin/Globulin Ratio 0.71 ANGELA Results - Last 24 hrs: Microbiology 04/14/21 14:05 Aerobic Blood Culture - Final Blood - Venous - Lab Draw NO GROWTH AFTER 5 DAYS Anaerobic Blood Culture - Preliminary Clostridium Species 04/14/21 13:50 Aerobic Blood Culture - Final Blood - Venous NO GROWTH AFTER 5 DAYS Anaerobic Blood Culture - Final NO GROWTH AFTER 5 DAYS 04/14/21 14:05 Blood Culture Identification Panel - Preliminary Blood - Venous - Lab Draw Probable Clostridium Species Med Orders - Current: Current Medications Acetaminophen (Acetaminophen 325 Mg Tab) 650 mg PO Q6H PRN PRN Reason: Fever Last Admin: 04/19/21 19:25 Dose: 650 mg Documented by: Ceftriaxone Sodium (Ceftriaxone 1 Gm Vial) 1 gm IVPUSH DAILY [facility] Last Admin: 04/19/21 08:57 Dose: 1 gm Documented by: Cholecalciferol (Cholecalciferol (Vitamin D3) 25 Mcg Tab) 25 mcg PO DAILY [facility] Last Admin: 04/19/21 08:56 Dose: 25 mcg Documented by: Gabapentin (Gabapentin 100 Mg Cap) 100 mg PO BEDTIME [facility] Last Admin: 04/19/21 19:25 Dose: 100 mg Documented by: Mirtazapine (Mirtazapine 30 Mg Tab) 30 mg PO BEDTIME [facility] Last Admin: 04/19/21 19:25 Dose: 30 mg Documented by: Ondansetron HCl (Ondansetron 4 Mg Tab.Dis) 4 mg PO Q4H PRN PRN Reason: nausea, able to take PO Ondansetron HCl (Ondansetron 4 Mg/2 Ml Sdv) 4 mg IV Q4H PRN PRN Reason: Nausea/Vomiting Last Admin: 04/15/21 09:46 Dose: 4 mg Documented by: Phytonadione (Phytonadione 100 Mcg Tab) 100 mcg PO DAILY [facility] Last Admin: 04/19/21 08:57 Dose: 100 mcg Documented by: Potassium Chloride (Potassium Chloride 20 Meq Tab.Er) 20 meq PO DAILY [facility] Last Admin: 04/19/21 08:57 Dose: 20 meq Documented by: Prednisone (Prednisone 5 Mg Tab) 5 mg PO DAILY [facility] Last Admin: 04/19/21 08:56 Dose: 5 mg Documented by: Sodium Chloride (Sodium Chloride 0.9% 10 Ml Syringe) 10 ml FLUSH ASDIRECTED PRN PRN Reason: Keep Vein Open Last Admin: 04/19/21 08:57 Dose: 10 ml Documented by: Warfarin Sodium (Warfarin 2.5 Mg Tab) 2.5 mg PO [email or web address]@1999 [facility] Last Admin: 04/18/21 20:11 Dose: 2.5 mg Documented by: Warfarin Sodium (Warfarin 5 Mg Tab) 5 mg PO [email or web address]@1999 [facility] Last Admin: 04/19/21 19:25 Dose: 5 mg Documented by: Discontinued Medications Dexamethasone 2 mg/ (Dexamethasone 4 mg) 6 mg PO ONETIME ONE Stop: 04/14/21 12:43 Last Admin: 04/14/21 12:55 Dose: 6 mg Documented by: Lactated Ringer's (Ringers, Lactated) 1,000 mls @ 150 mls/hr IV ASDIRECTED [facility] Last Admin: 04/14/21 14:35 Dose: 150 mls/hr Documented by: Potassium Chloride 10 meq/ (Premix) 50 mls @ 50 mls/hr IV ONETIME ONE Stop: 04/14/21 15:38 Last Admin: 04/14/21 14:45 Dose: 50 mls/hr Documented by: Potassium Chloride 20 meq/ (Premix) 50 mls @ 50 mls/hr IV ONETIME ONE Stop: 04/14/21 17:04 Last Admin: 04/14/21 18:37 Dose: Not Given Documented by: Potassium Chloride (Potassium Chloride 20 Meq Tab.Er) 40 meq PO BIDMEALS [facility] Last Admin: 04/15/21 09:47 Dose: Not Given Documented by: Potassium Chloride (Potassium Chloride 20 Meq Tab.Er) 40 meq PO DAILY [facility] Potassium Chloride (Potassium Chloride 10 Meq Tab.Er) 20 meq PO ONETIME ONE Stop: 04/18/21 09:52 Last Admin: 04/18/21 10:52 Dose: 20 meq Documented by: - Exam General: Reports: Alert, Cooperative, No Acute Distress HEENT: Reports: EOMI, Mucous Membr. Moist/[place] Neck: Reports: Supple Lungs: Reports: Normal Respiratory Effort, Rales (faint, LLL) Cardiovascular: Reports: Regular Rate, Irregular Rhythm GI/Abdominal Exam: Normal Bowel Sounds, Soft, Non-Tender Extremities: Non-Tender, No Pedal Edema Skin: Reports: Warm, Dry Wound/Incisions: Reports: Other (dressings to lateral heals for prevention of pressure ulcers in place) Neurological: Reports: No New Focal Deficit
[2021-04-20] MEDS: predniSONE 5 MG Tab PO SCH (09:17)
[2021-04-20] MEDS: Potassium Chloride 20 MEQ Tab.ER PO SCH (09:17)
[2021-04-20] MEDS: Cholecalciferol (Vitamin D3) 25 MCG Tab PO SCH (09:17)
[2021-04-20] MEDS: cefTRIAXone 1 GM Vial IVPUSH SCH (09:17)
[2021-04-20] MEDS: Phytonadione 100 MCG Tab PO SCH (09:17)
== END 2021-04-20 13:09 | disposition swing bed (61) | DRG 177 ==
LOC: VM.ED 12:04 → VM.MS 14:48
PROVIDERS: ADMIT Internal Medicine; ATTEND Internal Medicine
DX: R53.1 Weakness (principal); U07.1 COVID-19; I48.20 Chronic atrial fibrillation, unspecified; J12.82 Pneumonia due to coronavirus disease 2019; F31.9 Bipolar disorder, unspecified; E87.6 Hypokalemia; D64.9 Anemia, unspecified; G47.33 Obstructive sleep apnea (adult) (pediatric); G62.9 Polyneuropathy, unspecified; E53.8 Deficiency of other specified B group vitamins; C61 Malignant neoplasm of prostate; Z85.830 Personal history of malignant neoplasm of bone; I48.91 Unspecified atrial fibrillation; I50.9 Heart failure, unspecified; Z98.890 Other specified postprocedural states; Z98.42 Cataract extraction status, left eye; Z98.41 Cataract extraction status, right eye; Z87.19 Personal history of other diseases of the digestive system; Z90.79 Acquired absence of other genital organ(s); Z95.0 Presence of cardiac pacemaker; G47.30 Sleep apnea, unspecified; R25.8 Other abnormal involuntary movements; Z85.850 Personal history of malignant neoplasm of thyroid; Z85.46 Personal history of malignant neoplasm of prostate; Z79.01 Long term (current) use of anticoagulants; Z79.52 Long term (current) use of systemic steroids; Z79.899 Other long term (current) drug therapy
CPT/HCPCS: 36415; 71045; 80048; 80053; 81001; 82728; 83605; 83615; 83735; 84145; 84153; 84154; 84484; 85025; 85027; 85379; 85610; 85730; 86140; 87040; 87150; 93005; 96365; 97116-GP; 97162-GP; 97530-GP; 99284; 99285-25; A9270-GY; J0696; J2405; J3480; J7120; J7512; J8540

== ENCOUNTER 2021-04-20 13:02 | Inpatient (IN) | payer MEDICARE, BC ==
[2021-04-20] MEDS ORDERED: Ondansetron 4 MG Tab.DIS PO PRN (14:05)
[2021-04-20] MEDS ORDERED: Ondansetron 4 MG/2 ML SDV IV PRN (14:05)
[2021-04-20] MEDS ORDERED: Sodium Chloride 0.9% 10 ML Syringe FLUSH PRN ×2 (14:05)
[2021-04-20] MEDS: Gabapentin 100 MG Cap PO SCH (20:09)
[2021-04-20] MEDS: Warfarin 2.5 MG Tab PO SCH (20:09)
[2021-04-20] MEDS: Acetaminophen 325 MG Tab PO PRN (20:09)
[2021-04-20] MEDS: Mirtazapine 30 MG Tab PO SCH (20:09)
[2021-04-21] MEDS: Cholecalciferol (Vitamin D3) 25 MCG Tab PO SCH (08:55)
[2021-04-21] MEDS: Potassium Chloride 20 MEQ Tab.ER PO SCH (08:55)
[2021-04-21] MEDS: predniSONE 5 MG Tab PO SCH (08:55)
[2021-04-21] MEDS: Phytonadione 100 MCG Tab PO SCH (08:55)
[2021-04-21] MEDS: Mirtazapine 30 MG Tab PO SCH (19:41)
[2021-04-21] MEDS: Warfarin 5 MG Tab PO SCH (19:41)
[2021-04-21] MEDS: Gabapentin 100 MG Cap PO SCH (19:41)
[2021-04-21] MEDS: Acetaminophen 325 MG Tab PO PRN (19:43)
[2021-04-22] MEDS: Cholecalciferol (Vitamin D3) 25 MCG Tab PO SCH (07:58)
[2021-04-22] MEDS: predniSONE 5 MG Tab PO SCH (07:58)
[2021-04-22] MEDS: Phytonadione 100 MCG Tab PO SCH (07:58)
[2021-04-22] MEDS: Potassium Chloride 20 MEQ Tab.ER PO SCH (07:59)
[2021-04-22] MEDS: Mirtazapine 30 MG Tab PO SCH (19:14)
[2021-04-22] MEDS: Warfarin 5 MG Tab PO SCH (19:14)
[2021-04-22] MEDS: Acetaminophen 325 MG Tab PO PRN (19:15)
[2021-04-22] MEDS: Gabapentin 100 MG Cap PO SCH (19:15)
[2021-04-23] MEDS: Acetaminophen 325 MG Tab PO PRN ×2 (09:27→20:38)
[2021-04-23] MEDS: Potassium Chloride 20 MEQ Tab.ER PO SCH (09:29)
[2021-04-23] MEDS: predniSONE 5 MG Tab PO SCH (09:29)
[2021-04-23] MEDS: Cholecalciferol (Vitamin D3) 25 MCG Tab PO SCH (09:29)
[2021-04-23] MEDS: Phytonadione 100 MCG Tab PO SCH (09:29)
[2021-04-23] MEDS: Warfarin 2.5 MG Tab PO SCH (20:37)
[2021-04-23] MEDS: Gabapentin 100 MG Cap PO SCH (20:38)
[2021-04-23] MEDS: Mirtazapine 30 MG Tab PO SCH (20:38)
[2021-04-24] MEDS: Cholecalciferol (Vitamin D3) 25 MCG Tab PO SCH (08:28)
[2021-04-24] MEDS: Potassium Chloride 20 MEQ Tab.ER PO SCH (08:28)
[2021-04-24] MEDS: Phytonadione 100 MCG Tab PO SCH (08:28)
[2021-04-24] MEDS: predniSONE 5 MG Tab PO SCH (08:28)
[2021-04-24] MEDS: Acetaminophen 325 MG Tab PO PRN (19:47)
[2021-04-24] MEDS: Gabapentin 100 MG Cap PO SCH (19:47)
[2021-04-24] MEDS: Warfarin 5 MG Tab PO SCH (19:47)
[2021-04-24] MEDS: Mirtazapine 30 MG Tab PO SCH (19:47)
[2021-04-25] MEDS: Phytonadione 100 MCG Tab PO SCH (08:50)
[2021-04-25] MEDS: predniSONE 5 MG Tab PO SCH (08:50)
[2021-04-25] MEDS: Cholecalciferol (Vitamin D3) 25 MCG Tab PO SCH (08:50)
[2021-04-25] MEDS: Potassium Chloride 20 MEQ Tab.ER PO SCH (08:50)
[2021-04-25] MEDS: Acetaminophen 325 MG Tab PO PRN (19:55)
[2021-04-25] MEDS: Mirtazapine 30 MG Tab PO SCH (19:55)
[2021-04-25] MEDS: Warfarin 2.5 MG Tab PO SCH (19:55)
[2021-04-25] MEDS: Gabapentin 100 MG Cap PO SCH (19:55)
[2021-04-26] MEDS: Potassium Chloride 20 MEQ Tab.ER PO SCH (09:12)
[2021-04-26] MEDS: Phytonadione 100 MCG Tab PO SCH (09:12)
[2021-04-26] MEDS: Cholecalciferol (Vitamin D3) 25 MCG Tab PO SCH (09:13)
[2021-04-26] MEDS: predniSONE 5 MG Tab PO SCH (09:13)
[2021-04-26] MEDS: Mirtazapine 30 MG Tab PO SCH (19:47)
[2021-04-26] MEDS: Gabapentin 100 MG Cap PO SCH (19:47)
[2021-04-26] MEDS: Warfarin 5 MG Tab PO SCH (19:48)
[2021-04-27] MEDS: Potassium Chloride 20 MEQ Tab.ER PO SCH (07:55)
[2021-04-27] MEDS: Cholecalciferol (Vitamin D3) 25 MCG Tab PO SCH (07:55)
[2021-04-27] MEDS: Phytonadione 100 MCG Tab PO SCH (07:55)
[2021-04-27] MEDS: predniSONE 5 MG Tab PO SCH (07:55)
[2021-04-27] MEDS: Gabapentin 100 MG Cap PO SCH (19:32)
[2021-04-27] MEDS: Mirtazapine 30 MG Tab PO SCH (19:32)
[2021-04-27] MEDS: Warfarin 2.5 MG Tab PO SCH (19:32)
[2021-04-28] MEDS: Phytonadione 100 MCG Tab PO SCH (07:42)
[2021-04-28] MEDS: Potassium Chloride 20 MEQ Tab.ER PO SCH (07:42)
[2021-04-28] MEDS: Cholecalciferol (Vitamin D3) 25 MCG Tab PO SCH (07:42)
[2021-04-28] MEDS: predniSONE 5 MG Tab PO SCH (07:42)
[2021-04-28] MEDS: Warfarin 5 MG Tab PO SCH (20:48)
[2021-04-28] MEDS: Mirtazapine 30 MG Tab PO SCH (20:49)
[2021-04-28] MEDS: Gabapentin 100 MG Cap PO SCH (20:49)
[2021-04-29] MEDS: Potassium Chloride 20 MEQ Tab.ER PO SCH (07:38)
[2021-04-29] MEDS: Cholecalciferol (Vitamin D3) 25 MCG Tab PO SCH (07:38)
[2021-04-29] MEDS: predniSONE 5 MG Tab PO SCH (07:38)
[2021-04-29] MEDS: Phytonadione 100 MCG Tab PO SCH (07:38)
[2021-04-29] MEDS: Warfarin 5 MG Tab PO SCH (19:33)
[2021-04-29] MEDS: Mirtazapine 30 MG Tab PO SCH (19:33)
[2021-04-29] MEDS: Gabapentin 100 MG Cap PO SCH (19:33)
[2021-04-30] MEDS: Cholecalciferol (Vitamin D3) 25 MCG Tab PO SCH (08:10)
[2021-04-30] MEDS: Phytonadione 100 MCG Tab PO SCH (08:10)
[2021-04-30] MEDS: Potassium Chloride 20 MEQ Tab.ER PO SCH (08:10)
[2021-04-30] MEDS: predniSONE 5 MG Tab PO SCH (08:10)
[2021-04-30] MEDS: Gabapentin 100 MG Cap PO SCH (19:33)
[2021-04-30] MEDS: Warfarin 2.5 MG Tab PO SCH (19:33)
[2021-04-30] MEDS: Mirtazapine 30 MG Tab PO SCH (19:33)
--- NOTE | 2021-05-01 08:16 | PCM.DCSUM1 ---
Discharge Summary - Hospital Course Free Text/Narrative:: Wan is a 80-year-old male with a past medical history of metastatic prostate cancer, chronic atrial fibrillation, congestive heart failure, obstructive sleep apnea who was admitted on 04/13/2021 for increased weakness and fatigue secondary to a recently diagnosed COVID19 infection. He was tested in the clinic on 04/12/21 after 10 days of symptoms prior to test. brought him into the ER the following overnight due to increasing weakness and lack of her ability to care for him at home. On admission his potassium was found to be low. Potassium was repleted. Acute hospital course was benign with no need for supplemental O2 and minimal symptoms (intermittent dry cough). He was removed from isolation on 04/18/21. Downgraded to swing-bed status with plans for ongoing therapies prior to SNF placement. The only complicating factor of his hospital stay is 1/4 of his blood cultures (04/14/21) returning positive for possible clostridium species. This was discussed with Desean CARRANZA and decision was made to repeat the blood cultures; agreed that this was likely contaminant. Continued treatment with Rocephin for total of 5 days. Repeat blood cultures (04/19/21) returned negative. At this point patient is ready for discharge to SNF. COVID on day of discharge is positive although this is expected with recent infection. We will plan for him to continue his long-term home medications at the SNF and also participate in therapies for ongoing strengthening. At this time it is expected he will be long-term stay. Discharge Final Diagnosis: COVID 19 with Generalized Weakness/Fatigue Chronic: - Atrial fibrillation: Rate controlled, continue warfarin, INR's - Metastatic prostate cancer: We'll restart his zytiga at time of discharge. Continue home prednisone. Has a follow-up appointment in [place] on 04/23/2021, this has been moved back to 04/27/21. - Bipolar disorder: Currently not on any medication - CHF: Stable, home Lasix - [facility] - Neuropathy Diagnosis: Stroke: No - Discharge Data Discharge Date: 05/01/21 Discharge Disposition: DC/Tfer to SNF 03 Condition: Good - Referral to Home Health Primary Care Physician: Chika Carroll MD - Patient Summary/Data Consults: Consultations 04/20/21 14:05 Consult to Case Management/Party Bus Driver [CONS] Routine PT Evaluation and Treatment [CONS] Routine 04/23/21 09:39 OT Evaluation and Treatment [CONS] Routine - Discharge Plan *PRESCRIPTION DRUG MONITORING PROGRAM REVIEWED*: Not Applicable *COPY OF PRESCRIPTION DRUG MONITORING REPORT IN PATIENT PAYAL: Not Applicable Home Medications: Home Meds Warfarin [Coumadin] 1 tab PO ASDIRECTED 03/05/16 [History] Abiraterone Acetate [Zytiga] 1,000 mg PO DAILY 10/30/20 [History] Calcium Carb/Vitamin D3/Vit K1 [Calcium + D Soft Chewable Tab] 1 tab PO BID 10/30/20 [History] Cyanocobalamin (Vitamin B12) [Vitamin B12] 1,000 mcg PO DAILY 10/30/20 [History] Furosemide [Lasix] 20 mg PO DAILY PRN 10/30/20 [History] Gabapentin [Neurontin] 200 mg PO BID 10/30/20 [History] Iron 1 tab PO DAILY 10/30/20 [History] Mirtazapine [Remeron] 30 mg PO DAILY 10/30/20 [History] Phytonadione [Vitamin K] 100 mcg PO DAILY 10/30/20 [History] Potassium Chloride 20 meq PO DAILY 10/30/20 [History] Vitamin E 800 units PO BID 10/30/20 [History] predniSONE [Prednisone] 5 mg PO DAILY 10/30/20 [History] - Discharge Summary/Plan Comment DC Time >30 min.: No Total # of Minutes for Discharge Time: 25 Discharge Summary/Plan Comment: Diagnosis: COVID 19 with associated weakness/fatigue Patient will discharge to [facility] for Long-term stay He will discharge on his previous home medications Will plan to have him participate in ongoing therapies - General Info Date of Service: 05/01/21 Functional Status: Reports: Pain Controlled - Review of Systems General: Reports: No Symptoms HEENT: Reports: No Symptoms Pulmonary: Reports: No Symptoms Cardiovascular: Reports: No Symptoms Gastrointestinal: Reports: No Symptoms Genitourinary: Reports: No Symptoms Musculoskeletal: Reports: No Symptoms Skin: Reports: No Symptoms Neurological: Reports: No Symptoms Psychiatric: Reports: No Symptoms - Patient Data Vitals - Most Recent: Last Vital Signs Temp 97.9 F 05/01/21 06:00 Pulse 77 05/01/21 06:00 Resp 16 05/01/21 06:00 BP 143/63 H 05/01/21 06:00 Pulse Ox 95 05/01/21 06:00 Weight - Most Recent: 178 lb 12.718 oz I&O - Last 24 hours: Intake & Output 04/30/21 05/01/21 05/01/21 22:59 06:59 14:59 Intake Total 360 Balance 360 Lab Results - Last 24 hrs: Laboratory Results - last 24 hr 04/30/21 Range/Units 12:40 SARS CoV-2 RNA Rapid CHEL Positive H (NEGATIVE) Med Orders - Current: Current Medications Acetaminophen (Acetaminophen 325 Mg Tab) 650 mg PO Q6H PRN PRN Reason: Fever Last Admin: 04/25/21 19:55 Dose: 650 mg Documented by: Cholecalciferol (Cholecalciferol (Vitamin D3) 25 Mcg Tab) 25 mcg PO DAILY [facility] Last Admin: 04/30/21 08:10 Dose: 25 mcg Documented by: Gabapentin (Gabapentin 100 Mg Cap) 100 mg PO BEDTIME [facility] Last Admin: 04/30/21 19:33 Dose: 100 mg Documented by: Mirtazapine (Mirtazapine 30 Mg Tab) 30 mg PO BEDTIME [facility] Last Admin: 04/30/21 19:33 Dose: 30 mg Documented by: Ondansetron HCl (Ondansetron 4 Mg Tab.Dis) 4 mg PO Q4H PRN PRN Reason: nausea, able to take PO Ondansetron HCl (Ondansetron 4 Mg/2 Ml Sdv) 4 mg IV Q4H PRN PRN Reason: Nausea/Vomiting Phytonadione (Phytonadione 100 Mcg Tab) 100 mcg PO DAILY [facility] Last Admin: 04/30/21 08:10 Dose: 100 mcg Documented by: Potassium Chloride (Potassium Chloride 20 Meq Tab.Er) 20 meq PO DAILY [facility] Last Admin: 04/30/21 08:10 Dose: 20 meq Documented by: Prednisone (Prednisone 5 Mg Tab) 5 mg PO DAILY [facility] Last Admin: 04/30/21 08:10 Dose: 5 mg Documented by: Sodium Chloride (Sodium Chloride 0.9% 10 Ml Syringe) 10 ml FLUSH ASDIRECTED PRN PRN Reason: Keep Vein Open Warfarin Sodium (Warfarin 5 Mg Tab) 5 mg PO [email or web address] [facility] Last Admin: 04/29/21 19:33 Dose: 5 mg Documented by: Warfarin Sodium (Warfarin 2.5 Mg Tab) 2.5 mg PO [email or web address] [facility] Last Admin: 04/30/21 19:33 Dose: 2.5 mg Documented by: - Exam General: Reports: Alert, Cooperative HEENT: Reports: EOMI, Mucous Membr. Moist/[place] Neck: Reports: Supple Lungs: Reports: Clear to Auscultation, Normal Respiratory Effort Cardiovascular: Reports: Regular Rate, Irregular Rhythm GI/Abdominal Exam: Normal Bowel Sounds, Soft, Non-Tender Extremities: Normal Inspection, Non-Tender, No Pedal Edema Skin: Reports: Warm, Dry Psy/Mental Status: Reports: Alert, Normal Affect, Normal Mood
[2021-05-01] MEDS: Acetaminophen 325 MG Tab PO PRN ×2 (10:37→19:41)
[2021-05-01] MEDS: Phytonadione 100 MCG Tab PO SCH (10:38)
[2021-05-01] MEDS: Cholecalciferol (Vitamin D3) 25 MCG Tab PO SCH (10:38)
[2021-05-01] MEDS: Potassium Chloride 20 MEQ Tab.ER PO SCH (10:38)
[2021-05-01] MEDS: predniSONE 5 MG Tab PO SCH (10:38)
[2021-05-01] MEDS: Mirtazapine 30 MG Tab PO SCH (19:41)
[2021-05-01] MEDS: Warfarin 5 MG Tab PO SCH (19:41)
[2021-05-01] MEDS: Gabapentin 100 MG Cap PO SCH (19:41)
[2021-05-02] MEDS: predniSONE 5 MG Tab PO SCH (07:06)
[2021-05-02] MEDS: Cholecalciferol (Vitamin D3) 25 MCG Tab PO SCH (07:06)
[2021-05-02] MEDS: Phytonadione 100 MCG Tab PO SCH (07:07)
[2021-05-02] MEDS: Potassium Chloride 20 MEQ Tab.ER PO SCH (07:07)
[2021-05-02] MEDS: Mirtazapine 30 MG Tab PO SCH (19:47)
[2021-05-02] MEDS: Warfarin 2.5 MG Tab PO SCH (19:48)
[2021-05-02] MEDS: Gabapentin 100 MG Cap PO SCH (19:48)
[2021-05-03] MEDS: Cholecalciferol (Vitamin D3) 25 MCG Tab PO SCH (07:20)
[2021-05-03] MEDS: Potassium Chloride 20 MEQ Tab.ER PO SCH (07:20)
[2021-05-03] MEDS: Phytonadione 100 MCG Tab PO SCH (07:20)
[2021-05-03] MEDS: predniSONE 5 MG Tab PO SCH (07:20)
[2021-05-03] MEDS: ABIRATERONE 250 MG PO SCH (07:21)
[2021-05-03] MEDS: Gabapentin 100 MG Cap PO SCH (19:50)
[2021-05-03] MEDS: Warfarin 5 MG Tab PO SCH (19:50)
[2021-05-03] MEDS: Mirtazapine 30 MG Tab PO SCH (19:50)
[2021-05-04] MEDS: Cholecalciferol (Vitamin D3) 25 MCG Tab PO SCH (07:56)
[2021-05-04] MEDS: predniSONE 5 MG Tab PO SCH (07:56)
[2021-05-04] MEDS: Phytonadione 100 MCG Tab PO SCH (07:56)
[2021-05-04] MEDS: Potassium Chloride 20 MEQ Tab.ER PO SCH (07:56)
[2021-05-04] MEDS: ABIRATERONE 250 MG PO SCH (07:57)
[2021-05-04] MEDS: Mirtazapine 30 MG Tab PO SCH (20:02)
[2021-05-04] MEDS: Gabapentin 100 MG Cap PO SCH (20:02)
[2021-05-04] MEDS: Warfarin 2.5 MG Tab PO SCH (20:02)
[2021-05-05] MEDS: Potassium Chloride 20 MEQ Tab.ER PO SCH (07:32)
[2021-05-05] MEDS: Cholecalciferol (Vitamin D3) 25 MCG Tab PO SCH (07:32)
[2021-05-05] MEDS: predniSONE 5 MG Tab PO SCH (07:32)
[2021-05-05] MEDS: Phytonadione 100 MCG Tab PO SCH (07:33)
[2021-05-05] MEDS: ABIRATERONE 250 MG PO SCH (07:33)
[2021-05-05] MEDS: Gabapentin 100 MG Cap PO SCH (19:46)
[2021-05-05] MEDS: Mirtazapine 30 MG Tab PO SCH (19:46)
[2021-05-05] MEDS: Acetaminophen 325 MG Tab PO PRN (19:46)
[2021-05-05] MEDS: Warfarin 5 MG Tab PO SCH (19:56)
[2021-05-06] MEDS: Cholecalciferol (Vitamin D3) 25 MCG Tab PO SCH (07:48)
[2021-05-06] MEDS: ABIRATERONE 250 MG PO SCH (07:48)
[2021-05-06] MEDS: predniSONE 5 MG Tab PO SCH (07:48)
[2021-05-06] MEDS: Phytonadione 100 MCG Tab PO SCH (07:48)
[2021-05-06] MEDS: Potassium Chloride 20 MEQ Tab.ER PO SCH (07:48)
[2021-05-06] MEDS: Warfarin 5 MG Tab PO SCH (19:27)
[2021-05-06] MEDS ORDERED: Warfarin 2.5 MG Tab PO ONE (20:00)
[2021-05-06] MEDS: Mirtazapine 30 MG Tab PO SCH (20:12)
[2021-05-06] MEDS: Acetaminophen 325 MG Tab PO PRN (20:12)
[2021-05-06] MEDS: Gabapentin 100 MG Cap PO SCH (20:12)
[2021-05-07] MEDS: Phytonadione 100 MCG Tab PO SCH (07:41)
[2021-05-07] MEDS: predniSONE 5 MG Tab PO SCH (07:41)
[2021-05-07] MEDS: Cholecalciferol (Vitamin D3) 25 MCG Tab PO SCH (07:41)
[2021-05-07] MEDS: Potassium Chloride 20 MEQ Tab.ER PO SCH (07:41)
[2021-05-07] MEDS: ABIRATERONE 250 MG PO SCH (07:48)
[2021-05-07] MEDS ORDERED: Warfarin 5 MG Tab PO SCH (10:45)
[2021-05-07] MEDS: Gabapentin 100 MG Cap PO SCH (20:04)
[2021-05-07] MEDS: Mirtazapine 30 MG Tab PO SCH (20:04)
[2021-05-07] MEDS: Warfarin 2.5 MG Tab PO SCH (20:04)
[2021-05-08] MEDS: Potassium Chloride 20 MEQ Tab.ER PO SCH (07:53)
[2021-05-08] MEDS: Phytonadione 100 MCG Tab PO SCH (07:54)
[2021-05-08] MEDS: Cholecalciferol (Vitamin D3) 25 MCG Tab PO SCH (07:54)
[2021-05-08] MEDS: predniSONE 5 MG Tab PO SCH (07:54)
[2021-05-08] MEDS: ABIRATERONE 250 MG PO SCH (07:55)
[2021-05-08] MEDS: Acetaminophen 325 MG Tab PO PRN (20:01)
[2021-05-08] MEDS: Gabapentin 100 MG Cap PO SCH (20:02)
[2021-05-08] MEDS: Mirtazapine 30 MG Tab PO SCH (20:02)
[2021-05-08] MEDS: Warfarin 5 MG Tab PO SCH (20:02)
[2021-05-09] MEDS: Cholecalciferol (Vitamin D3) 25 MCG Tab PO SCH (08:15)
[2021-05-09] MEDS: predniSONE 5 MG Tab PO SCH (08:15)
[2021-05-09] MEDS: ABIRATERONE 250 MG PO SCH (08:15)
[2021-05-09] MEDS: Phytonadione 100 MCG Tab PO SCH (08:15)
[2021-05-09] MEDS: Potassium Chloride 20 MEQ Tab.ER PO SCH (08:15)
[2021-05-09] MEDS: Acetaminophen 325 MG Tab PO PRN (19:49)
[2021-05-09] MEDS: Warfarin 2.5 MG Tab PO SCH (19:50)
[2021-05-09] MEDS: Mirtazapine 30 MG Tab PO SCH (19:50)
[2021-05-09] MEDS: Gabapentin 100 MG Cap PO SCH (19:50)
[2021-05-10] MEDS: Acetaminophen 325 MG Tab PO PRN ×2 (08:54→19:49)
[2021-05-10] MEDS: ABIRATERONE 250 MG PO SCH (08:54)
[2021-05-10] MEDS: Potassium Chloride 20 MEQ Tab.ER PO SCH (08:55)
[2021-05-10] MEDS: Phytonadione 100 MCG Tab PO SCH (08:55)
[2021-05-10] MEDS: predniSONE 5 MG Tab PO SCH (08:55)
[2021-05-10] MEDS: Cholecalciferol (Vitamin D3) 25 MCG Tab PO SCH (08:55)
[2021-05-10] MEDS ORDERED: Warfarin 2.5 MG Tab PO ONE (12:30)
[2021-05-10] MEDS: Mirtazapine 30 MG Tab PO SCH (19:49)
[2021-05-10] MEDS: Warfarin 5 MG Tab PO SCH (19:49)
[2021-05-10] MEDS: Gabapentin 100 MG Cap PO SCH (19:49)
[2021-05-11] MEDS: predniSONE 5 MG Tab PO SCH (08:54)
[2021-05-11] MEDS: Phytonadione 100 MCG Tab PO SCH (08:54)
[2021-05-11] MEDS: Cholecalciferol (Vitamin D3) 25 MCG Tab PO SCH (08:54)
[2021-05-11] MEDS: Potassium Chloride 20 MEQ Tab.ER PO SCH (08:54)
[2021-05-11] MEDS: ABIRATERONE 250 MG PO SCH (16:42)
[2021-05-11] MEDS: Mirtazapine 30 MG Tab PO SCH (19:34)
[2021-05-11] MEDS: Gabapentin 100 MG Cap PO SCH (19:34)
[2021-05-11] MEDS: Warfarin 2.5 MG Tab PO SCH (19:34)
[2021-05-12] MEDS: ABIRATERONE 250 MG PO SCH (08:23)
[2021-05-12] MEDS: Phytonadione 100 MCG Tab PO SCH (08:24)
[2021-05-12] MEDS: Cholecalciferol (Vitamin D3) 25 MCG Tab PO SCH (08:24)
[2021-05-12] MEDS: Potassium Chloride 20 MEQ Tab.ER PO SCH (08:24)
[2021-05-12] MEDS: predniSONE 5 MG Tab PO SCH (08:24)
[2021-05-12] MEDS: Acetaminophen 325 MG Tab PO PRN (20:02)
[2021-05-12] MEDS: Warfarin 5 MG Tab PO SCH (20:02)
[2021-05-12] MEDS: Gabapentin 100 MG Cap PO SCH (20:02)
[2021-05-12] MEDS: Mirtazapine 30 MG Tab PO SCH (20:02)
[2021-05-13] MEDS: Potassium Chloride 20 MEQ Tab.ER PO SCH (07:40)
[2021-05-13] MEDS: Cholecalciferol (Vitamin D3) 25 MCG Tab PO SCH (07:40)
[2021-05-13] MEDS: Phytonadione 100 MCG Tab PO SCH (07:40)
[2021-05-13] MEDS: predniSONE 5 MG Tab PO SCH (07:40)
[2021-05-13] MEDS: ABIRATERONE 250 MG PO SCH (07:41)
[2021-05-13] MEDS: Mirtazapine 30 MG Tab PO SCH (19:51)
[2021-05-13] MEDS: Gabapentin 100 MG Cap PO SCH (19:51)
[2021-05-13] MEDS: Acetaminophen 325 MG Tab PO PRN (19:52)
[2021-05-13] MEDS: Warfarin 5 MG Tab PO SCH (20:03)
[2021-05-14] MEDS: Cholecalciferol (Vitamin D3) 25 MCG Tab PO SCH (07:43)
[2021-05-14] MEDS: Phytonadione 100 MCG Tab PO SCH (07:43)
[2021-05-14] MEDS: predniSONE 5 MG Tab PO SCH (07:43)
[2021-05-14] MEDS: Potassium Chloride 20 MEQ Tab.ER PO SCH (07:43)
[2021-05-14] MEDS: ABIRATERONE 250 MG PO SCH (07:44)
[2021-05-14] MEDS: Gabapentin 100 MG Cap PO SCH (20:04)
[2021-05-14] MEDS: Mirtazapine 30 MG Tab PO SCH (20:04)
[2021-05-14] MEDS: Warfarin 2.5 MG Tab PO SCH (20:04)
[2021-05-14] MEDS: Acetaminophen 325 MG Tab PO PRN (20:04)
[2021-05-15] MEDS: Cholecalciferol (Vitamin D3) 25 MCG Tab PO SCH (08:40)
[2021-05-15] MEDS: Potassium Chloride 20 MEQ Tab.ER PO SCH (08:40)
[2021-05-15] MEDS: predniSONE 5 MG Tab PO SCH (08:40)
[2021-05-15] MEDS: Phytonadione 100 MCG Tab PO SCH (08:41)
[2021-05-15] MEDS: Mirtazapine 30 MG Tab PO SCH (20:03)
[2021-05-15] MEDS: Gabapentin 100 MG Cap PO SCH (20:03)
[2021-05-15] MEDS: Warfarin 5 MG Tab PO SCH (20:05)
[2021-05-15] MEDS: Acetaminophen 325 MG Tab PO PRN (20:06)
[2021-05-16] MEDS: Cholecalciferol (Vitamin D3) 25 MCG Tab PO SCH (09:01)
[2021-05-16] MEDS: predniSONE 5 MG Tab PO SCH (09:01)
[2021-05-16] MEDS: Phytonadione 100 MCG Tab PO SCH (09:01)
[2021-05-16] MEDS: Potassium Chloride 20 MEQ Tab.ER PO SCH (09:01)
[2021-05-16] MEDS: Warfarin 5 MG Tab PO SCH (20:15)
[2021-05-16] MEDS: Gabapentin 100 MG Cap PO SCH (20:15)
[2021-05-16] MEDS: Mirtazapine 30 MG Tab PO SCH (20:15)
[2021-05-16] MEDS: Acetaminophen 325 MG Tab PO PRN (20:17)
[2021-05-17] MEDS: Potassium Chloride 20 MEQ Tab.ER PO SCH (08:31)
[2021-05-17] MEDS: Cholecalciferol (Vitamin D3) 25 MCG Tab PO SCH (08:31)
[2021-05-17] MEDS: Phytonadione 100 MCG Tab PO SCH (08:31)
[2021-05-17] MEDS: predniSONE 5 MG Tab PO SCH (08:31)
[2021-05-17] MEDS: Gabapentin 100 MG Cap PO SCH (19:31)
[2021-05-17] MEDS: Mirtazapine 30 MG Tab PO SCH (19:31)
[2021-05-17] MEDS: Warfarin 5 MG Tab PO SCH (19:31)
[2021-05-18 05:34] VITALS: BP 138/81; PULSE 68
[2021-05-18] MEDS: Cholecalciferol (Vitamin D3) 25 MCG Tab PO SCH (07:28)
[2021-05-18] MEDS: predniSONE 5 MG Tab PO SCH (07:28)
[2021-05-18] MEDS: Phytonadione 100 MCG Tab PO SCH (07:28)
[2021-05-18] MEDS: Potassium Chloride 20 MEQ Tab.ER PO SCH (07:28)
--- NOTE | 2021-05-18 08:46 | PCM.DCSUM1 ---
Discharge Summary - Hospital Course Free Text/Narrative:: Wan is a 80-year-old male with a past medical history of metastatic prostate cancer, chronic atrial fibrillation, congestive heart failure, obstructive sleep apnea who was admitted on 04/13/2021 for increased weakness and fatigue secondary to a recently diagnosed COVID19 infection. He was tested in the clinic on 04/12/21 after 10 days of symptoms prior to test. brought him into the ER the following overnight due to increasing weakness and lack of her ability to care for him at home. On admission his potassium was found to be low. Potassium was repleted. Acute hospital course was benign with no need for supplemental O2 and minimal symptoms (intermittent dry cough). He was removed from isolation on 04/18/21. Downgraded to swing-bed status with plans for ongoing therapies prior to SNF placement. The only complicating factor of his hospital stay is 1/4 of his blood cultures (04/14/21) returning positive for possible clostridium species. This was discussed with Desean CARRANZA and decision was made to repeat the blood cultures; agreed that this was likely contaminant. Continued treatment with Rocephin for total of 5 days. Repeat blood cultures (04/19/21) returned negative. Patient was originally going to be discharged to SNF mid-April but due to his cancer medication not being covered there and his and his 's desires to continue this therapy plans were altered and we kept him for ongoing therapies with hopes to return home. At this time therapies have signed off noting they feel he is strong enough to return home with ongoing outpatient therapies. We will plan to set up home health assistance for ongoing therapies as well as bath aid. Diagnosis: Stroke: No - Discharge Data Discharge Date: 05/18/21 Discharge Disposition: Home, W Home Health Agency Condition: Stable - Referral to Home Health Date of Face to Face Encounter: 05/18/21 Reason for Homebound Status: Inability to ambulate more than 100ft. Use of assistive device. Inability to drive. [place] on another. Primary Care Physician: Chika Carroll MD Skilled Need: PT, OT, Bath Aid - Discharge Diagnosis/Problem(s) (1) Generalized weakness SNOMED Code(s): 71549591 ICD Code: R53.1 - WEAKNESS Status: Acute Current Visit: No - Patient Summary/Data Consults: Consultations 04/20/21 14:05 Consult to Case Management/Construction Safety Consultant [CONS] Routine PT Evaluation and Treatment [CONS] Routine 04/23/21 09:39 OT Evaluation and Treatment [CONS] Routine 05/15/21 11:09 OT Evaluation and Treatment [CONS] Routine - Discharge Plan *PRESCRIPTION DRUG MONITORING PROGRAM REVIEWED*: Not Applicable *COPY OF PRESCRIPTION DRUG MONITORING REPORT IN PATIENT PAYAL: Not Applicable Home Medications: Home Meds Warfarin [Coumadin] 1 tab PO ASDIRECTED 03/05/16 [History] Abiraterone Acetate [Zytiga] 750 mg PO DAILY 10/30/20 [History] Calcium Carb/Vitamin D3/Vit K1 [Calcium + D Soft Chewable Tab] 1 tab PO BID 10/30/20 [History] Cyanocobalamin (Vitamin B12) [Vitamin B12] 1,000 mcg PO DAILY 10/30/20 [History] Furosemide [Lasix] 20 mg PO DAILY PRN 10/30/20 [History] Gabapentin [Neurontin] 200 mg PO BID 10/30/20 [History] Iron 1 tab PO DAILY 10/30/20 [History] Mirtazapine [Remeron] 30 mg PO DAILY 10/30/20 [History] Phytonadione [Vitamin K] 100 mcg PO DAILY 10/30/20 [History] Potassium Chloride 20 meq PO DAILY 10/30/20 [History] Vitamin E 800 units PO BID 10/30/20 [History] predniSONE [Prednisone] 5 mg PO DAILY 10/30/20 [History] Leuprolide [Lupron Depot 3-Month] 22.5 mg IM Q90D 05/02/21 [History] - Discharge Summary/Plan Comment DC Time >30 min.: Yes Total # of Minutes for Discharge Time: 35 Discharge Summary/Plan Comment: Face to Face Documentation Encounter Date of Encounter: 05/18/21 Patients Name: wan Mcalughlin Date of : 42 I certify that Wan Mclaughlin is under my care and that I, or a nurse practitioner or physicians assistant construction superintendent, had a face to face encounter that meets the physician [id number] requirements on 05/18/21. (This date must match the discharge summary progress note/clinic visit documentation supporting this information.) The encounter with the patient was in whole or in part for the following medical condition, which is the primary reason for home health care: Physical therapy for strengthening, balance, and gait training, OT, as well as bath-aid assistance. My clinical findings support the need for the services because of inability to safely get to an outpatient facility for therapy due to fall risk, lack of muscle coordination and tone, balance issues, and weakness. Further, I certify that my clinical findings support that this patient is homebound (i.e. absences from home require considerable and taxing effort, or are for medical reasons, or for advent services, or infrequent or of short duration when for other reasons) because the patient is unable to safely ambulate distances less than 20 feet, patient requires standby assist due to loss of balance, and patient requires frequent rest periods due to weakness and loss of endurance, patient requires use of assistive device and/or use of fox/furniture to ambulate (high fall risk) and patient requires assistance of another person to leave the home. Certification: For Home Health Services I certify that Wan Mclaughlin meets the homebound requirements for the payer source and has a need for intermittent usp, physician, and/or speech or occupational therapy services in the home for the diagnosis currently outlined in the initial plan of care. These services will continue to be monitored by . This physician will periodically review and update the plan of care as required. My signature indicates that this supplemental documentation has been incorporated in the patients medical record. Chika Carroll MD - Review of Systems General: Reports: No Symptoms HEENT: Reports: No Symptoms Pulmonary: Reports: Cough (mild, intermittent) Cardiovascular: Reports: No Symptoms Gastrointestinal: Reports: No Symptoms Genitourinary: Reports: No Symptoms Musculoskeletal: Reports: No Symptoms Skin: Reports: No Symptoms Neurological: Reports: No Symptoms Psychiatric: Reports: No Symptoms - Patient Data Vitals - Most Recent: Last Vital Signs Temp 97 F 05/18/21 05:32 Pulse 68 05/18/21 05:32 Resp 16 05/17/21 06:00 BP 138/81 05/18/21 05:32 Pulse Ox 97 05/17/21 06:00 Weight - Most Recent: 179 lb 9.6 oz I&O - Last 24 hours: Intake & Output 05/17/21 05/18/21 05/18/21 22:59 06:59 14:59 Intake Total 120 Balance 120 Med Orders - Current: Current Medications Acetaminophen (Acetaminophen 325 Mg Tab) 650 mg PO Q6H PRN PRN Reason: Fever Last Admin: 05/16/21 20:17 Dose: 650 mg Documented by: Cholecalciferol (Cholecalciferol (Vitamin D3) 25 Mcg Tab) 25 mcg PO DAILY [facility] Last Admin: 05/18/21 07:28 Dose: 25 mcg Documented by: Gabapentin (Gabapentin 100 Mg Cap) 100 mg PO BEDTIME [facility] Last Admin: 05/17/21 19:31 Dose: 100 mg Documented by: Mirtazapine (Mirtazapine 30 Mg Tab) 30 mg PO BEDTIME [facility] Last Admin: 05/17/21 19:31 Dose: 30 mg Documented by: Ondansetron HCl (Ondansetron 4 Mg Tab.Dis) 4 mg PO Q4H PRN PRN Reason: nausea, able to take PO Ondansetron HCl (Ondansetron 4 Mg/2 Ml Sdv) 4 mg IV Q4H PRN PRN Reason: Nausea/Vomiting Abiraterone [Zytiga] 250mg Tab Own Med 3 each PO DAILY [facility] Last Admin: 05/14/21 07:44 Dose: Not Given Documented by: Phytonadione (Phytonadione 100 Mcg Tab) 100 mcg PO DAILY [facility] Last Admin: 05/18/21 07:28 Dose: 100 mcg Documented by: Potassium Chloride (Potassium Chloride 20 Meq Tab.Er) 20 meq PO DAILY [facility] Last Admin: 05/18/21 07:28 Dose: 20 meq Documented by: Prednisone (Prednisone 5 Mg Tab) 5 mg PO DAILY [facility] Last Admin: 05/18/21 07:28 Dose: 5 mg Documented by: Sodium Chloride (Sodium Chloride 0.9% 10 Ml Syringe) 10 ml FLUSH ASDIRECTED PRN PRN Reason: Keep Vein Open Warfarin Sodium (Warfarin 5 Mg Tab) 1 mg PO .PHARMACY TO DOSE [facility] Warfarin Sodium (Warfarin 2.5 Mg Tab) 2.5 mg PO [email or web address] [facility] Last Admin: 05/14/21 20:04 Dose: 2.5 mg Documented by: Warfarin Sodium (Warfarin 5 Mg Tab) 5 mg PO [email or web address] [facility] Last Admin: 05/17/21 19:31 Dose: 5 mg Documented by: Discontinued Medications Warfarin Sodium (Warfarin 5 Mg Tab) 5 mg PO [email or web address] [facility] Last Admin: 05/08/21 20:02 Dose: 5 mg Documented by: Warfarin Sodium (Warfarin 2.5 Mg Tab) 2.5 mg PO [email or web address] [facility] Last Admin: 05/09/21 19:50 Dose: 2.5 mg Documented by: Warfarin Sodium (Warfarin 2.5 Mg Tab) 2.5 mg PO ONETIME ONE Stop: 05/06/21 20:01 Last Admin: 05/06/21 20:12 Dose: 2.5 mg Documented by: Warfarin Sodium (Warfarin 2.5 Mg Tab) 2.5 mg PO ONETIME ONE Stop: 05/10/21 12:31 Last Admin: 05/10/21 16:26 Dose: 2.5 mg Documented by: - Exam General: Reports: Alert, Oriented, Cooperative, No Acute Distress HEENT: Reports: EOMI, Mucous Membr. Moist/[place] Neck: Reports: Supple Lungs: Reports: Clear to Auscultation, Normal Respiratory Effort Cardiovascular: Reports: Regular Rate GI/Abdominal Exam: Normal Bowel Sounds, Soft, Non-Tender Extremities: Normal Inspection, Non-Tender, No Pedal Edema Skin: Reports: Warm, Dry, Intact Neurological: Reports: Other Psy/Mental Status: Reports: Alert, Other (flat affect)
== END 2021-05-18 11:55 | disposition home health service (06) | DRG 947 ==
LOC: VM.MS 13:24
PROVIDERS: ADMIT Family Medicine; ATTEND Family Medicine
DX: R53.1 Weakness (principal); U07.1 COVID-19; I48.20 Chronic atrial fibrillation, unspecified; I50.9 Heart failure, unspecified; E87.6 Hypokalemia; G47.33 Obstructive sleep apnea (adult) (pediatric); F31.9 Bipolar disorder, unspecified; G62.9 Polyneuropathy, unspecified; Z79.01 Long term (current) use of anticoagulants; Z85.46 Personal history of malignant neoplasm of prostate; Z79.899 Other long term (current) drug therapy; Z79.52 Long term (current) use of systemic steroids
CPT/HCPCS: 36415; 81001; 85610; 97110-GP; 97112-GP; 97116-GP; 97129-GO; 97130-GO; 97165-GO; 97168-GO; 97530-GP; 97535-GO; A9270-GY; J7512; U0002

== ENCOUNTER 2022-05-06 11:32 | Emergency (ER) | payer MEDICARE, BC ==
[2022-05-06] MEDS ORDERED: Sodium Chloride 0.9% 10 ML Syringe FLUSH PRN (13:45)
[2022-05-06] MEDS: Sodium Chloride 0.9% 1,000 ML IV ONE (14:21)
[2022-05-06] MEDS: Acetaminophen 325 MG Tab PO ONE (14:21)
[2022-05-06 14:27] LABS: ANION GAP 14.3 mmol/L (5-15)
[2022-05-06] MEDS ORDERED: Take Home: Doxycycline 100 MG Tab, 4 Tab Pack PO ONE (15:00)
[2022-05-06] MEDS: Amoxicillin/Clavulanate K 875-125 MG Tab PO ONE (15:19)
[2022-05-06] MEDS: Doxycycline Monohydrate 100 MG Cap PO ONE (15:33)
[2022-05-06 17:11] VITALS: BP 164/83
[2022-05-06 17:26] VITALS: PULSE 74
[2022-05-06] MEDS ORDERED: Amoxicillin/Clavulanate K 875-125 MG Tab PO SCH (21:00)
== END 2022-05-06 15:45 | disposition home or self-care (01) ==
LOC: VM.ED 11:32
DX: J18.9 Pneumonia, unspecified organism (principal); I48.91 Unspecified atrial fibrillation; Z95.0 Presence of cardiac pacemaker; Z79.01 Long term (current) use of anticoagulants; Z86.16 Personal history of COVID-19; Z20.822 Contact with and (suspected) exposure to COVID-19
CPT/HCPCS: 36415; 71046; 80053; 83605; 85025; 96360; 99284; 99284-25; A9270-GY; J7030; U0002

== ENCOUNTER 2022-05-13 13:16 | Inpatient (IN) | payer MEDICARE, BC ==
[2022-05-13 14:17] LABS: CHLORIDE,CL 105 mmol/L (98-107); SODIUM,NA 144 mmol/L (136-145)
[2022-05-13 14:18] LABS: ESTIMATED GFR 68 mL/min (>=60)
[2022-05-13] MEDS ORDERED: cefTRIAXone 1 GM Vial IVPUSH ONE (14:21)
[2022-05-13] MEDS ORDERED: Furosemide 40 MG/4 ML VIAL IV ONE (14:26)
[2022-05-13] MEDS ORDERED: Potassium Chloride Riders 20 MEQ in Premix Bag 1 BAG IV ONE (14:29)
[2022-05-13] MEDS ORDERED: Sodium Chloride 0.9% 1,000 ML IV ONE (15:30)
[2022-05-13] MEDS: Potassium Chloride 20 MEQ Tab.ER PO SCH ×2 (18:48→19:59)
[2022-05-13] MEDS: Gabapentin 100 MG Cap PO SCH (19:59)
[2022-05-13] MEDS: Mirtazapine 30 MG Tab PO SCH (19:59)
[2022-05-13] MEDS: Calcium Carbonate/Vitamin D3 1250 MG-5 MCG Tab PO SCH (19:59)
[2022-05-14 07:35] LABS: ANION GAP 13.7 mmol/L (5-15)
[2022-05-14] MEDS: Aspirin 81 MG Tab.Chew PO SCH (09:02)
[2022-05-14] MEDS: Enoxaparin 40 MG/0.4 ML Syringe SUBCUT SCH (09:02)
[2022-05-14] MEDS: Cholecalciferol (Vitamin D3) 10 MCG Tab PO SCH (09:02)
[2022-05-14] MEDS: Ferrous Sulfate 325 MG Tab PO SCH (09:02)
[2022-05-14] MEDS: Calcium Carbonate/Vitamin D3 1250 MG-5 MCG Tab PO SCH ×2 (09:02→21:16)
[2022-05-14] MEDS: Gabapentin 100 MG Cap PO SCH ×2 (09:03→21:17)
[2022-05-14] MEDS: predniSONE 5 MG Tab PO SCH (09:03)
[2022-05-14] MEDS: Furosemide 20 MG/2 ML VIAL IV SCH (10:07)
[2022-05-14] MEDS: Potassium Chloride 20 MEQ Tab.ER PO SCH (10:07)
[2022-05-14] MEDS: Tamsulosin 0.4 MG Cap.ER PO SCH (10:07)
[2022-05-14] MEDS ORDERED: Acetaminophen 325 MG Tab PO PRN (16:28)
[2022-05-14] MEDS: Mirtazapine 30 MG Tab PO SCH (21:17)
[2022-05-15 06:57] LABS: ANION GAP 14.1 mmol/L (5-15)
[2022-05-15] MEDS: Ferrous Sulfate 325 MG Tab PO SCH (11:55)
[2022-05-15] MEDS: Cholecalciferol (Vitamin D3) 10 MCG Tab PO SCH (11:56)
[2022-05-15] MEDS: Tamsulosin 0.4 MG Cap.ER PO SCH (11:56)
[2022-05-15] MEDS: predniSONE 5 MG Tab PO SCH (11:56)
[2022-05-15] MEDS: Aspirin 81 MG Tab.Chew PO SCH (11:57)
[2022-05-15] MEDS: Gabapentin 100 MG Cap PO SCH ×2 (11:57→20:43)
[2022-05-15] MEDS: Potassium Chloride 20 MEQ Tab.ER PO SCH (11:57)
[2022-05-15] MEDS: Furosemide 20 MG/2 ML VIAL IV SCH (11:57)
[2022-05-15] MEDS: Enoxaparin 40 MG/0.4 ML Syringe SUBCUT SCH (11:58)
[2022-05-15] MEDS: Calcium Carbonate/Vitamin D3 1250 MG-5 MCG Tab PO SCH ×2 (12:07→20:44)
[2022-05-15] MEDS: Mirtazapine 30 MG Tab PO SCH (20:44)
[2022-05-16 07:35] LABS: ANION GAP 16.1 mmol/L (5-15)
[2022-05-16] MEDS: Aspirin 81 MG Tab.Chew PO SCH (08:33)
[2022-05-16] MEDS: Cholecalciferol (Vitamin D3) 10 MCG Tab PO SCH (08:33)
[2022-05-16] MEDS: Calcium Carbonate/Vitamin D3 1250 MG-5 MCG Tab PO SCH (08:33)
[2022-05-16] MEDS: Ferrous Sulfate 325 MG Tab PO SCH (08:34)
[2022-05-16] MEDS: predniSONE 5 MG Tab PO SCH (08:34)
[2022-05-16] MEDS: Potassium Chloride 20 MEQ Tab.ER PO SCH (08:34)
[2022-05-16] MEDS: Tamsulosin 0.4 MG Cap.ER PO SCH (08:34)
[2022-05-16] MEDS: Gabapentin 100 MG Cap PO SCH (08:34)
[2022-05-16] MEDS: Enoxaparin 40 MG/0.4 ML Syringe SUBCUT SCH (08:38)
[2022-05-16] MEDS ORDERED: Furosemide 20 MG Tab PO SCH (09:00)
[2022-05-16 12:16] VITALS: BP 142/79; PULSE 70
== END 2022-05-16 12:50 | disposition swing bed (61) | DRG 291 ==
LOC: VM.ED 13:16 → VM.MS 14:32
PROVIDERS: ADMIT Internal Medicine; ATTEND Family Medicine
DX: J18.9 Pneumonia, unspecified organism (principal); I50.9 Heart failure, unspecified; I11.0 Hypertensive heart disease with heart failure; I50.33 Acute on chronic diastolic (congestive) heart failure; I48.91 Unspecified atrial fibrillation; J96.01 Acute respiratory failure with hypoxia; G47.30 Sleep apnea, unspecified; N42.9 Disorder of prostate, unspecified; I48.20 Chronic atrial fibrillation, unspecified; Z79.82 Long term (current) use of aspirin; E46 Unspecified protein-calorie malnutrition; C79.51 Secondary malignant neoplasm of bone; Z20.822 Contact with and (suspected) exposure to COVID-19; R33.8 Other retention of urine; F31.9 Bipolar disorder, unspecified; N40.1 Benign prostatic hyperplasia with lower urinary tract symptoms; E87.6 Hypokalemia; D50.9 Iron deficiency anemia, unspecified; G47.33 Obstructive sleep apnea (adult) (pediatric); Z85.46 Personal history of malignant neoplasm of prostate; Z87.01 Personal history of pneumonia (recurrent); Z95.0 Presence of cardiac pacemaker; Z79.899 Other long term (current) drug therapy; Z98.41 Cataract extraction status, right eye; Z98.42 Cataract extraction status, left eye; Z68.29 Body mass index [BMI] 29.0-29.9, adult
CPT/HCPCS: 36415; 51702; 51798; 71045; 72040; 80048; 80053; 81001; 82550; 82607; 82947; 83605; 83735; 83880; 84443; 84484; 85025; 93005; 93010; 94760; 96374; 96375; 97110-GP; 97161-GP; 97530-GP; 99284; 99285-25; A9270-GY; J0696; J1650; J1940; J3480; J7030; J7512; U0002

== ENCOUNTER 2022-05-16 11:27 | Inpatient (IN) | payer MEDICARE, BC ==
[2022-05-16] MEDS ORDERED: Ondansetron 4 MG Tab.DIS PO PRN (14:40)
[2022-05-16] MEDS: Acetaminophen 325 MG Tab PO PRN (18:22)
[2022-05-16] MEDS: Gabapentin 100 MG Cap PO SCH (19:58)
[2022-05-16] MEDS: Calcium Carbonate/Vitamin D3 1250 MG-5 MCG Tab PO SCH (19:59)
[2022-05-16] MEDS: Mirtazapine 30 MG Tab PO SCH (19:59)
[2022-05-17] MEDS ORDERED: Potassium Chloride 20 MEQ Tab.ER PO SCH (09:00)
[2022-05-17] MEDS ORDERED: ABIRATERONE ACETATE 250 MG PO SCH (09:00)
[2022-05-17 11:16] LABS: ANION GAP 11.8 mmol/L (5-15)
[2022-05-17 11:22] LABS: PCO2 ARTERIAL,POC 33 mmHg (35-48)
[2022-05-17] MEDS: Aspirin 81 MG Tab.Chew PO SCH (13:36)
[2022-05-17] MEDS: Tamsulosin 0.4 MG Cap.ER PO SCH (13:37)
[2022-05-17] MEDS: Ferrous Sulfate 325 MG Tab PO SCH (13:37)
[2022-05-17] MEDS: Calcium Carbonate/Vitamin D3 1250 MG-5 MCG Tab PO SCH ×2 (13:37→21:42)
[2022-05-17] MEDS: Potassium Chloride 20 MEQ Tab.ER PO SCH (13:38)
[2022-05-17] MEDS: Gabapentin 100 MG Cap PO SCH ×2 (13:38→21:42)
[2022-05-17] MEDS: Furosemide 20 MG Tab PO SCH (13:38)
[2022-05-17] MEDS: Enoxaparin 40 MG/0.4 ML Syringe SUBCUT SCH (13:38)
[2022-05-17] MEDS: predniSONE 5 MG Tab PO SCH (13:39)
[2022-05-17] MEDS ORDERED: cefTRIAXone 2 GM Vial IVPUSH ONE (17:00)
[2022-05-17] MEDS: Mirtazapine 30 MG Tab PO SCH (21:42)
[2022-05-18] MEDS: cefTRIAXone 2 GM Vial IVPUSH SCH (08:07)
[2022-05-18] MEDS: Enoxaparin 40 MG/0.4 ML Syringe SUBCUT SCH (08:16)
[2022-05-18] MEDS: Calcium Carbonate/Vitamin D3 1250 MG-5 MCG Tab PO SCH ×2 (08:18→20:57)
[2022-05-18] MEDS: Ferrous Sulfate 325 MG Tab PO SCH (08:18)
[2022-05-18] MEDS: predniSONE 5 MG Tab PO SCH (08:18)
[2022-05-18] MEDS: Tamsulosin 0.4 MG Cap.ER PO SCH (08:18)
[2022-05-18] MEDS: Aspirin 81 MG Tab.Chew PO SCH (08:18)
[2022-05-18] MEDS: Potassium Chloride 20 MEQ Tab.ER PO SCH (08:19)
[2022-05-18] MEDS: Gabapentin 100 MG Cap PO SCH ×2 (08:20→20:57)
[2022-05-18] MEDS: Furosemide 20 MG Tab PO SCH (08:20)
[2022-05-18] MEDS: ABIRATERONE ACETATE 250 MG PO SCH (08:29)
[2022-05-18] MEDS: Mirtazapine 30 MG Tab PO SCH (20:57)
[2022-05-19] MEDS: Aspirin 81 MG Tab.Chew PO SCH (08:56)
[2022-05-19] MEDS: predniSONE 5 MG Tab PO SCH (08:57)
[2022-05-19] MEDS: Tamsulosin 0.4 MG Cap.ER PO SCH (08:57)
[2022-05-19] MEDS: Calcium Carbonate/Vitamin D3 1250 MG-5 MCG Tab PO SCH ×2 (08:57→21:16)
[2022-05-19] MEDS: Furosemide 20 MG Tab PO SCH (08:58)
[2022-05-19] MEDS: Ferrous Sulfate 325 MG Tab PO SCH (08:59)
[2022-05-19] MEDS: Enoxaparin 40 MG/0.4 ML Syringe SUBCUT SCH (08:59)
[2022-05-19] MEDS: cefTRIAXone 2 GM Vial IVPUSH SCH (08:59)
[2022-05-19] MEDS: Potassium Chloride 20 MEQ Tab.ER PO SCH (09:11)
[2022-05-19] MEDS: ABIRATERONE ACETATE 250 MG PO SCH (09:11)
[2022-05-19] MEDS: Gabapentin 100 MG Cap PO SCH (21:16)
[2022-05-19] MEDS: Mirtazapine 30 MG Tab PO SCH (21:16)
[2022-05-20 08:28] LABS: ANION GAP 13.3 mmol/L (5-15)
[2022-05-20] MEDS: cefTRIAXone 2 GM Vial IVPUSH SCH (09:01)
[2022-05-20] MEDS: Furosemide 20 MG Tab PO SCH (09:02)
[2022-05-20] MEDS: Tamsulosin 0.4 MG Cap.ER PO SCH (09:02)
[2022-05-20] MEDS: Aspirin 81 MG Tab.Chew PO SCH (09:02)
[2022-05-20] MEDS: Calcium Carbonate/Vitamin D3 1250 MG-5 MCG Tab PO SCH ×2 (09:02→20:19)
[2022-05-20] MEDS: Ferrous Sulfate 325 MG Tab PO SCH (09:02)
[2022-05-20] MEDS: Enoxaparin 40 MG/0.4 ML Syringe SUBCUT SCH (09:02)
[2022-05-20] MEDS: predniSONE 5 MG Tab PO SCH (09:03)
[2022-05-20] MEDS: ABIRATERONE ACETATE 250 MG PO SCH (10:58)
[2022-05-20] MEDS: Potassium Chloride 20 MEQ Tab.ER PO SCH (10:58)
[2022-05-20] MEDS: Gabapentin 100 MG Cap PO SCH (20:19)
[2022-05-20] MEDS: Mirtazapine 30 MG Tab PO SCH (20:19)
[2022-05-21] MEDS: cefTRIAXone 2 GM Vial IVPUSH SCH (08:07)
[2022-05-21] MEDS: predniSONE 5 MG Tab PO SCH (08:20)
[2022-05-21] MEDS: Ferrous Sulfate 325 MG Tab PO SCH (08:20)
[2022-05-21] MEDS: Potassium Chloride 20 MEQ Tab.ER PO SCH (08:21)
[2022-05-21] MEDS: Aspirin 81 MG Tab.Chew PO SCH (08:21)
[2022-05-21] MEDS: Furosemide 20 MG Tab PO SCH (08:22)
[2022-05-21] MEDS: Tamsulosin 0.4 MG Cap.ER PO SCH (08:22)
[2022-05-21] MEDS: Enoxaparin 40 MG/0.4 ML Syringe SUBCUT SCH (08:23)
[2022-05-21] MEDS: ABIRATERONE ACETATE 250 MG PO SCH (08:29)
[2022-05-21] MEDS: Calcium Carbonate/Vitamin D3 1250 MG-5 MCG Tab PO SCH ×2 (10:02→20:20)
[2022-05-21] MEDS: Mirtazapine 30 MG Tab PO SCH (20:20)
[2022-05-21] MEDS: Gabapentin 100 MG Cap PO SCH (20:20)
[2022-05-22] MEDS: Ferrous Sulfate 325 MG Tab PO SCH (09:35)
[2022-05-22] MEDS: Furosemide 20 MG Tab PO SCH (09:35)
[2022-05-22] MEDS: Calcium Carbonate/Vitamin D3 1250 MG-5 MCG Tab PO SCH ×2 (09:35→20:07)
[2022-05-22] MEDS: Potassium Chloride 20 MEQ Tab.ER PO SCH (09:35)
[2022-05-22] MEDS: predniSONE 5 MG Tab PO SCH (09:35)
[2022-05-22] MEDS: Aspirin 81 MG Tab.Chew PO SCH (09:35)
[2022-05-22] MEDS: Tamsulosin 0.4 MG Cap.ER PO SCH (09:35)
[2022-05-22] MEDS: Enoxaparin 40 MG/0.4 ML Syringe SUBCUT SCH (09:36)
[2022-05-22] MEDS: cefTRIAXone 2 GM Vial IVPUSH SCH (09:37)
[2022-05-22] MEDS: ABIRATERONE ACETATE 250 MG PO SCH (09:38)
[2022-05-22] MEDS: Hypromellose 0.3% Ophth Soln 15 ML Bottle EYEBOTH SCH ×2 (11:06→20:08)
[2022-05-22] MEDS: Gabapentin 100 MG Cap PO SCH (20:07)
[2022-05-22] MEDS: Mirtazapine 30 MG Tab PO SCH (20:07)
[2022-05-23] MEDS: Furosemide 20 MG Tab PO SCH (08:27)
[2022-05-23] MEDS: Ferrous Sulfate 325 MG Tab PO SCH (08:28)
[2022-05-23] MEDS: Tamsulosin 0.4 MG Cap.ER PO SCH (08:28)
[2022-05-23] MEDS: Potassium Chloride 20 MEQ Tab.ER PO SCH (08:29)
[2022-05-23] MEDS: Hypromellose 0.3% Ophth Soln 15 ML Bottle EYEBOTH SCH ×2 (08:29→20:15)
[2022-05-23] MEDS: Aspirin 81 MG Tab.Chew PO SCH (08:29)
[2022-05-23] MEDS: Calcium Carbonate/Vitamin D3 1250 MG-5 MCG Tab PO SCH ×2 (08:29→20:15)
[2022-05-23] MEDS: predniSONE 5 MG Tab PO SCH (08:29)
[2022-05-23] MEDS: ABIRATERONE ACETATE 250 MG PO SCH (08:30)
[2022-05-23] MEDS: Enoxaparin 40 MG/0.4 ML Syringe SUBCUT SCH (08:30)
[2022-05-23] MEDS: cefTRIAXone 2 GM Vial IVPUSH SCH (08:42)
[2022-05-23] MEDS: Gabapentin 100 MG Cap PO SCH (20:15)
[2022-05-23] MEDS: Mirtazapine 30 MG Tab PO SCH (20:15)
[2022-05-24] MEDS: Aspirin 81 MG Tab.Chew PO SCH (08:06)
[2022-05-24] MEDS: Tamsulosin 0.4 MG Cap.ER PO SCH (08:07)
[2022-05-24] MEDS: Potassium Chloride 20 MEQ Tab.ER PO SCH (08:07)
[2022-05-24] MEDS: predniSONE 5 MG Tab PO SCH (08:07)
[2022-05-24] MEDS: Calcium Carbonate/Vitamin D3 1250 MG-5 MCG Tab PO SCH ×2 (08:07→20:03)
[2022-05-24] MEDS: Furosemide 20 MG Tab PO SCH (08:07)
[2022-05-24] MEDS: Enoxaparin 40 MG/0.4 ML Syringe SUBCUT SCH (08:08)
[2022-05-24] MEDS: cefTRIAXone 2 GM Vial IVPUSH SCH (08:08)
[2022-05-24] MEDS: Ferrous Sulfate 325 MG Tab PO SCH (08:08)
[2022-05-24] MEDS: ABIRATERONE ACETATE 250 MG PO SCH (08:11)
[2022-05-24] MEDS: Hypromellose 0.3% Ophth Soln 15 ML Bottle EYEBOTH SCH ×2 (08:11→20:04)
[2022-05-24] MEDS: Acetaminophen 325 MG Tab PO PRN (10:50)
[2022-05-24] MEDS: Gabapentin 100 MG Cap PO SCH (20:03)
[2022-05-24] MEDS: Mirtazapine 30 MG Tab PO SCH (20:03)
[2022-05-25] MEDS: Potassium Chloride 20 MEQ Tab.ER PO SCH (08:56)
[2022-05-25] MEDS: Aspirin 81 MG Tab.Chew PO SCH (08:56)
[2022-05-25] MEDS: predniSONE 5 MG Tab PO SCH (08:56)
[2022-05-25] MEDS: Furosemide 20 MG Tab PO SCH (08:56)
[2022-05-25] MEDS: Ferrous Sulfate 325 MG Tab PO SCH (08:56)
[2022-05-25] MEDS: Calcium Carbonate/Vitamin D3 1250 MG-5 MCG Tab PO SCH ×2 (08:56→19:59)
[2022-05-25] MEDS: Tamsulosin 0.4 MG Cap.ER PO SCH (08:56)
[2022-05-25] MEDS: cefTRIAXone 2 GM Vial IVPUSH SCH (08:57)
[2022-05-25] MEDS: Enoxaparin 40 MG/0.4 ML Syringe SUBCUT SCH (08:57)
[2022-05-25] MEDS: ABIRATERONE ACETATE 250 MG PO SCH (09:11)
[2022-05-25] MEDS: Hypromellose 0.3% Ophth Soln 15 ML Bottle EYEBOTH SCH ×2 (09:12→20:06)
[2022-05-25] MEDS: Acetaminophen 325 MG Tab PO PRN (15:49)
[2022-05-25] MEDS: Gabapentin 100 MG Cap PO SCH (19:59)
[2022-05-25] MEDS: Mirtazapine 30 MG Tab PO SCH (19:59)
[2022-05-26] MEDS: Tamsulosin 0.4 MG Cap.ER PO SCH (08:20)
[2022-05-26] MEDS: Ferrous Sulfate 325 MG Tab PO SCH (08:20)
[2022-05-26] MEDS: Calcium Carbonate/Vitamin D3 1250 MG-5 MCG Tab PO SCH ×2 (08:20→20:29)
[2022-05-26] MEDS: Aspirin 81 MG Tab.Chew PO SCH (08:21)
[2022-05-26] MEDS: Furosemide 20 MG Tab PO SCH (08:21)
[2022-05-26] MEDS: Potassium Chloride 20 MEQ Tab.ER PO SCH (08:21)
[2022-05-26] MEDS: predniSONE 5 MG Tab PO SCH (08:22)
[2022-05-26] MEDS: Enoxaparin 40 MG/0.4 ML Syringe SUBCUT SCH (08:22)
[2022-05-26] MEDS: Hypromellose 0.3% Ophth Soln 15 ML Bottle EYEBOTH SCH ×2 (08:31→22:00)
[2022-05-26] MEDS: ABIRATERONE ACETATE 250 MG PO SCH (08:34)
[2022-05-26] MEDS: Gabapentin 100 MG Cap PO SCH (20:29)
[2022-05-26] MEDS: Mirtazapine 30 MG Tab PO SCH (20:29)
[2022-05-27] MEDS: Enoxaparin 40 MG/0.4 ML Syringe SUBCUT SCH (08:48)
[2022-05-27] MEDS: Calcium Carbonate/Vitamin D3 1250 MG-5 MCG Tab PO SCH ×2 (08:48→20:02)
[2022-05-27] MEDS: Aspirin 81 MG Tab.Chew PO SCH (08:48)
[2022-05-27] MEDS: Tamsulosin 0.4 MG Cap.ER PO SCH (08:49)
[2022-05-27] MEDS: Furosemide 20 MG Tab PO SCH (08:49)
[2022-05-27] MEDS: Ferrous Sulfate 325 MG Tab PO SCH (08:49)
[2022-05-27] MEDS: predniSONE 5 MG Tab PO SCH (08:49)
[2022-05-27] MEDS: ABIRATERONE ACETATE 250 MG PO SCH (08:50)
[2022-05-27] MEDS: Potassium Chloride 20 MEQ Tab.ER PO SCH (08:50)
[2022-05-27] MEDS: Hypromellose 0.3% Ophth Soln 15 ML Bottle EYEBOTH SCH ×2 (08:50→20:02)
[2022-05-27] MEDS: Gabapentin 100 MG Cap PO SCH (20:01)
[2022-05-27] MEDS: Mirtazapine 30 MG Tab PO SCH (20:02)
[2022-05-28] MEDS: Potassium Chloride 20 MEQ Tab.ER PO SCH (09:04)
[2022-05-28] MEDS: Tamsulosin 0.4 MG Cap.ER PO SCH (09:05)
[2022-05-28] MEDS: Ferrous Sulfate 325 MG Tab PO SCH (09:05)
[2022-05-28] MEDS: Calcium Carbonate/Vitamin D3 1250 MG-5 MCG Tab PO SCH ×2 (09:05→20:12)
[2022-05-28] MEDS: predniSONE 5 MG Tab PO SCH (09:05)
[2022-05-28] MEDS: Aspirin 81 MG Tab.Chew PO SCH (09:06)
[2022-05-28] MEDS: Furosemide 20 MG Tab PO SCH (09:06)
[2022-05-28] MEDS: Enoxaparin 40 MG/0.4 ML Syringe SUBCUT SCH (09:07)
[2022-05-28] MEDS: Hypromellose 0.3% Ophth Soln 15 ML Bottle EYEBOTH SCH ×2 (09:08→21:04)
[2022-05-28] MEDS: ABIRATERONE ACETATE 250 MG PO SCH (09:14)
[2022-05-28] MEDS: Gabapentin 100 MG Cap PO SCH (20:12)
[2022-05-28] MEDS: Mirtazapine 30 MG Tab PO SCH (20:12)
[2022-05-29] MEDS: ABIRATERONE ACETATE 250 MG PO SCH (09:03)
[2022-05-29] MEDS: Enoxaparin 40 MG/0.4 ML Syringe SUBCUT SCH (09:03)
[2022-05-29] MEDS: Calcium Carbonate/Vitamin D3 1250 MG-5 MCG Tab PO SCH ×2 (09:04→20:19)
[2022-05-29] MEDS: Tamsulosin 0.4 MG Cap.ER PO SCH (09:04)
[2022-05-29] MEDS: Potassium Chloride 20 MEQ Tab.ER PO SCH (09:04)
[2022-05-29] MEDS: Ferrous Sulfate 325 MG Tab PO SCH (09:05)
[2022-05-29] MEDS: predniSONE 5 MG Tab PO SCH (09:05)
[2022-05-29] MEDS: Aspirin 81 MG Tab.Chew PO SCH (09:05)
[2022-05-29] MEDS: Furosemide 20 MG Tab PO SCH (09:05)
[2022-05-29] MEDS: Hypromellose 0.3% Ophth Soln 15 ML Bottle EYEBOTH SCH ×2 (09:06→20:20)
[2022-05-29] MEDS: Gabapentin 100 MG Cap PO SCH (20:17)
[2022-05-29] MEDS: Mirtazapine 30 MG Tab PO SCH (20:17)
[2022-05-29] MEDS: Acetaminophen 325 MG Tab PO PRN (20:17)
[2022-05-30] MEDS: Potassium Chloride 20 MEQ Tab.ER PO SCH (08:35)
[2022-05-30] MEDS: predniSONE 5 MG Tab PO SCH (08:35)
[2022-05-30] MEDS: Calcium Carbonate/Vitamin D3 1250 MG-5 MCG Tab PO SCH ×2 (08:35→20:12)
[2022-05-30] MEDS: Aspirin 81 MG Tab.Chew PO SCH (08:35)
[2022-05-30] MEDS: Furosemide 20 MG Tab PO SCH (08:35)
[2022-05-30] MEDS: Enoxaparin 40 MG/0.4 ML Syringe SUBCUT SCH (08:35)
[2022-05-30] MEDS: Ferrous Sulfate 325 MG Tab PO SCH (08:35)
[2022-05-30] MEDS: Tamsulosin 0.4 MG Cap.ER PO SCH (08:35)
[2022-05-30] MEDS: Hypromellose 0.3% Ophth Soln 15 ML Bottle EYEBOTH SCH ×2 (08:37→20:12)
[2022-05-30] MEDS: ABIRATERONE ACETATE 250 MG PO SCH (08:38)
[2022-05-30] MEDS: Gabapentin 100 MG Cap PO SCH (20:11)
[2022-05-30] MEDS: Mirtazapine 30 MG Tab PO SCH (20:12)
[2022-05-31] MEDS: Potassium Chloride 20 MEQ Tab.ER PO SCH (08:40)
[2022-05-31] MEDS: predniSONE 5 MG Tab PO SCH (08:40)
[2022-05-31] MEDS: Enoxaparin 40 MG/0.4 ML Syringe SUBCUT SCH (08:40)
[2022-05-31] MEDS: Aspirin 81 MG Tab.Chew PO SCH (08:40)
[2022-05-31] MEDS: Furosemide 20 MG Tab PO SCH (08:41)
[2022-05-31] MEDS: Tamsulosin 0.4 MG Cap.ER PO SCH (08:41)
[2022-05-31] MEDS: Ferrous Sulfate 325 MG Tab PO SCH (08:41)
[2022-05-31] MEDS: Calcium Carbonate/Vitamin D3 1250 MG-5 MCG Tab PO SCH ×2 (08:41→20:09)
[2022-05-31] MEDS: ABIRATERONE ACETATE 250 MG PO SCH ×2 (08:42→08:44)
[2022-05-31] MEDS: Hypromellose 0.3% Ophth Soln 15 ML Bottle EYEBOTH SCH ×2 (08:42→20:10)
[2022-05-31] MEDS: Gabapentin 100 MG Cap PO SCH (20:10)
[2022-05-31] MEDS: Mirtazapine 30 MG Tab PO SCH (20:10)
[2022-06-01] MEDS: ABIRATERONE ACETATE 250 MG PO SCH (08:43)
[2022-06-01] MEDS: Ferrous Sulfate 325 MG Tab PO SCH (08:44)
[2022-06-01] MEDS: Enoxaparin 40 MG/0.4 ML Syringe SUBCUT SCH (08:44)
[2022-06-01] MEDS: Furosemide 20 MG Tab PO SCH (08:44)
[2022-06-01] MEDS: Aspirin 81 MG Tab.Chew PO SCH (08:44)
[2022-06-01] MEDS: Calcium Carbonate/Vitamin D3 1250 MG-5 MCG Tab PO SCH ×2 (08:45→20:15)
[2022-06-01] MEDS: Potassium Chloride 20 MEQ Tab.ER PO SCH (08:45)
[2022-06-01] MEDS: predniSONE 5 MG Tab PO SCH (08:45)
[2022-06-01] MEDS: Tamsulosin 0.4 MG Cap.ER PO SCH (08:45)
[2022-06-01] MEDS: Hypromellose 0.3% Ophth Soln 15 ML Bottle EYEBOTH SCH ×2 (08:46→20:17)
[2022-06-01] MEDS: Gabapentin 100 MG Cap PO SCH (20:15)
[2022-06-01] MEDS: Mirtazapine 30 MG Tab PO SCH (20:15)
[2022-06-02] MEDS: predniSONE 5 MG Tab PO SCH (08:53)
[2022-06-02] MEDS: Hypromellose 0.3% Ophth Soln 15 ML Bottle EYEBOTH SCH ×2 (08:53→20:06)
[2022-06-02] MEDS: Calcium Carbonate/Vitamin D3 1250 MG-5 MCG Tab PO SCH ×2 (08:53→20:06)
[2022-06-02] MEDS: Aspirin 81 MG Tab.Chew PO SCH (08:53)
[2022-06-02] MEDS: Potassium Chloride 20 MEQ Tab.ER PO SCH (08:53)
[2022-06-02] MEDS: ABIRATERONE ACETATE 250 MG PO SCH (08:53)
[2022-06-02] MEDS: Enoxaparin 40 MG/0.4 ML Syringe SUBCUT SCH (08:53)
[2022-06-02] MEDS: Furosemide 20 MG Tab PO SCH (08:53)
[2022-06-02] MEDS: Ferrous Sulfate 325 MG Tab PO SCH (08:53)
[2022-06-02] MEDS: Tamsulosin 0.4 MG Cap.ER PO SCH (08:53)
[2022-06-02] MEDS: Mirtazapine 30 MG Tab PO SCH (20:06)
[2022-06-02] MEDS: Gabapentin 100 MG Cap PO SCH (20:06)
[2022-06-03] MEDS: Aspirin 81 MG Tab.Chew PO SCH (08:02)
[2022-06-03] MEDS: Ferrous Sulfate 325 MG Tab PO SCH (08:02)
[2022-06-03] MEDS: Furosemide 20 MG Tab PO SCH (08:02)
[2022-06-03] MEDS: Enoxaparin 40 MG/0.4 ML Syringe SUBCUT SCH (08:02)
[2022-06-03] MEDS: Calcium Carbonate/Vitamin D3 1250 MG-5 MCG Tab PO SCH ×2 (08:03→19:59)
[2022-06-03] MEDS: Potassium Chloride 20 MEQ Tab.ER PO SCH (08:03)
[2022-06-03] MEDS: ABIRATERONE ACETATE 250 MG PO SCH (08:04)
[2022-06-03] MEDS: Tamsulosin 0.4 MG Cap.ER PO SCH (08:05)
[2022-06-03] MEDS: Hypromellose 0.3% Ophth Soln 15 ML Bottle EYEBOTH SCH ×2 (08:05→19:59)
[2022-06-03] MEDS: predniSONE 5 MG Tab PO SCH (08:06)
[2022-06-03] MEDS: Gabapentin 100 MG Cap PO SCH (19:59)
[2022-06-03] MEDS: Mirtazapine 30 MG Tab PO SCH (19:59)
[2022-06-04] MEDS: Enoxaparin 40 MG/0.4 ML Syringe SUBCUT SCH (08:30)
[2022-06-04] MEDS: Aspirin 81 MG Tab.Chew PO SCH (08:30)
[2022-06-04] MEDS: predniSONE 5 MG Tab PO SCH (08:31)
[2022-06-04] MEDS: Tamsulosin 0.4 MG Cap.ER PO SCH (08:31)
[2022-06-04] MEDS: Calcium Carbonate/Vitamin D3 1250 MG-5 MCG Tab PO SCH ×2 (08:31→19:59)
[2022-06-04] MEDS: Potassium Chloride 20 MEQ Tab.ER PO SCH (08:31)
[2022-06-04] MEDS: Furosemide 20 MG Tab PO SCH (08:31)
[2022-06-04] MEDS: Ferrous Sulfate 325 MG Tab PO SCH (08:31)
[2022-06-04] MEDS: ABIRATERONE ACETATE 250 MG PO SCH (08:31)
[2022-06-04] MEDS: Hypromellose 0.3% Ophth Soln 15 ML Bottle EYEBOTH SCH ×2 (08:32→20:00)
[2022-06-04] MEDS: Mirtazapine 30 MG Tab PO SCH (19:59)
[2022-06-04] MEDS: Gabapentin 100 MG Cap PO SCH (19:59)
[2022-06-05] MEDS: Enoxaparin 40 MG/0.4 ML Syringe SUBCUT SCH (08:48)
[2022-06-05] MEDS: Ferrous Sulfate 325 MG Tab PO SCH (08:51)
[2022-06-05] MEDS: Potassium Chloride 20 MEQ Tab.ER PO SCH (08:51)
[2022-06-05] MEDS: Calcium Carbonate/Vitamin D3 1250 MG-5 MCG Tab PO SCH ×2 (08:51→21:28)
[2022-06-05] MEDS: Furosemide 20 MG Tab PO SCH (08:51)
[2022-06-05] MEDS: Tamsulosin 0.4 MG Cap.ER PO SCH (08:51)
[2022-06-05] MEDS: Aspirin 81 MG Tab.Chew PO SCH (08:51)
[2022-06-05] MEDS: predniSONE 5 MG Tab PO SCH (08:52)
[2022-06-05] MEDS: ABIRATERONE ACETATE 250 MG PO SCH (08:52)
[2022-06-05] MEDS: Hypromellose 0.3% Ophth Soln 15 ML Bottle EYEBOTH SCH ×2 (08:53→21:28)
[2022-06-05] MEDS: Gabapentin 100 MG Cap PO SCH (21:27)
[2022-06-05] MEDS: Mirtazapine 30 MG Tab PO SCH (21:27)
[2022-06-06] MEDS: Enoxaparin 40 MG/0.4 ML Syringe SUBCUT SCH (08:37)
[2022-06-06] MEDS: Furosemide 20 MG Tab PO SCH (08:38)
[2022-06-06] MEDS: Tamsulosin 0.4 MG Cap.ER PO SCH (08:38)
[2022-06-06] MEDS: Potassium Chloride 20 MEQ Tab.ER PO SCH (08:38)
[2022-06-06] MEDS: Calcium Carbonate/Vitamin D3 1250 MG-5 MCG Tab PO SCH ×2 (08:39→19:59)
[2022-06-06] MEDS: predniSONE 5 MG Tab PO SCH (08:39)
[2022-06-06] MEDS: Ferrous Sulfate 325 MG Tab PO SCH (08:39)
[2022-06-06] MEDS: Hypromellose 0.3% Ophth Soln 15 ML Bottle EYEBOTH SCH ×2 (08:39→20:00)
[2022-06-06] MEDS: Aspirin 81 MG Tab.Chew PO SCH (08:40)
[2022-06-06] MEDS: ABIRATERONE ACETATE 250 MG PO SCH (10:00)
[2022-06-06] MEDS: Gabapentin 100 MG Cap PO SCH (19:59)
[2022-06-06] MEDS: Mirtazapine 30 MG Tab PO SCH (20:00)
[2022-06-07] MEDS: Hypromellose 0.3% Ophth Soln 15 ML Bottle EYEBOTH SCH ×2 (08:42→21:46)
[2022-06-07] MEDS: Potassium Chloride 20 MEQ Tab.ER PO SCH (08:46)
[2022-06-07] MEDS: Furosemide 20 MG Tab PO SCH (08:47)
[2022-06-07] MEDS: Ferrous Sulfate 325 MG Tab PO SCH (08:47)
[2022-06-07] MEDS: Calcium Carbonate/Vitamin D3 1250 MG-5 MCG Tab PO SCH ×2 (08:47→21:45)
[2022-06-07] MEDS: Aspirin 81 MG Tab.Chew PO SCH (08:47)
[2022-06-07] MEDS: predniSONE 5 MG Tab PO SCH (08:47)
[2022-06-07] MEDS: Enoxaparin 40 MG/0.4 ML Syringe SUBCUT SCH (08:48)
[2022-06-07] MEDS: ABIRATERONE ACETATE 250 MG PO SCH ×2 (08:48→13:22)
[2022-06-07] MEDS: Tamsulosin 0.4 MG Cap.ER PO SCH (08:48)
[2022-06-07] MEDS: Mirtazapine 30 MG Tab PO SCH (21:45)
[2022-06-07] MEDS: Nitrofurantoin Monohydrate/Macrocrystalline 100 MG Cap PO SCH (21:45)
[2022-06-07] MEDS: Gabapentin 100 MG Cap PO SCH (21:45)
[2022-06-08] MEDS: Potassium Chloride 20 MEQ Tab.ER PO SCH (09:43)
[2022-06-08] MEDS: predniSONE 5 MG Tab PO SCH (09:44)
[2022-06-08] MEDS: Nitrofurantoin Monohydrate/Macrocrystalline 100 MG Cap PO SCH ×2 (09:44→21:21)
[2022-06-08] MEDS: Enoxaparin 40 MG/0.4 ML Syringe SUBCUT SCH (09:44)
[2022-06-08] MEDS: Tamsulosin 0.4 MG Cap.ER PO SCH (09:44)
[2022-06-08] MEDS: Calcium Carbonate/Vitamin D3 1250 MG-5 MCG Tab PO SCH ×2 (09:44→21:21)
[2022-06-08] MEDS: Furosemide 20 MG Tab PO SCH (09:44)
[2022-06-08] MEDS: Aspirin 81 MG Tab.Chew PO SCH (09:44)
[2022-06-08] MEDS: ABIRATERONE ACETATE 250 MG PO SCH (09:45)
[2022-06-08] MEDS: Hypromellose 0.3% Ophth Soln 15 ML Bottle EYEBOTH SCH ×2 (09:45→21:21)
[2022-06-08] MEDS: Ferrous Sulfate 325 MG Tab PO SCH (09:46)
[2022-06-08] MEDS: Mirtazapine 30 MG Tab PO SCH (21:21)
[2022-06-08] MEDS: Gabapentin 100 MG Cap PO SCH (21:21)
[2022-06-09] MEDS: ABIRATERONE ACETATE 250 MG PO SCH (09:23)
[2022-06-09] MEDS: Hypromellose 0.3% Ophth Soln 15 ML Bottle EYEBOTH SCH ×2 (09:23→21:01)
[2022-06-09] MEDS: Enoxaparin 40 MG/0.4 ML Syringe SUBCUT SCH (09:23)
[2022-06-09] MEDS: Calcium Carbonate/Vitamin D3 1250 MG-5 MCG Tab PO SCH ×2 (09:24→21:00)
[2022-06-09] MEDS: Tamsulosin 0.4 MG Cap.ER PO SCH (09:24)
[2022-06-09] MEDS: Nitrofurantoin Monohydrate/Macrocrystalline 100 MG Cap PO SCH ×2 (09:24→21:00)
[2022-06-09] MEDS: Furosemide 20 MG Tab PO SCH (09:24)
[2022-06-09] MEDS: Ferrous Sulfate 325 MG Tab PO SCH (09:24)
[2022-06-09] MEDS: Aspirin 81 MG Tab.Chew PO SCH (09:24)
[2022-06-09] MEDS: Potassium Chloride 20 MEQ Tab.ER PO SCH (09:24)
[2022-06-09] MEDS: predniSONE 5 MG Tab PO SCH (09:25)
[2022-06-09] MEDS: Mirtazapine 30 MG Tab PO SCH (21:00)
[2022-06-09] MEDS: Gabapentin 100 MG Cap PO SCH (21:00)
[2022-06-10] MEDS: Nitrofurantoin Monohydrate/Macrocrystalline 100 MG Cap PO SCH ×3 (08:29→20:05)
[2022-06-10] MEDS: predniSONE 5 MG Tab PO SCH (08:29)
[2022-06-10] MEDS: Hypromellose 0.3% Ophth Soln 15 ML Bottle EYEBOTH SCH ×3 (08:29→20:05)
[2022-06-10] MEDS: Tamsulosin 0.4 MG Cap.ER PO SCH (08:29)
[2022-06-10] MEDS: Furosemide 20 MG Tab PO SCH (08:29)
[2022-06-10] MEDS: Calcium Carbonate/Vitamin D3 1250 MG-5 MCG Tab PO SCH ×3 (08:29→20:05)
[2022-06-10] MEDS: Aspirin 81 MG Tab.Chew PO SCH (08:29)
[2022-06-10] MEDS: Ferrous Sulfate 325 MG Tab PO SCH (08:29)
[2022-06-10] MEDS: ABIRATERONE ACETATE 250 MG PO SCH (08:30)
[2022-06-10] MEDS: Potassium Chloride 20 MEQ Tab.ER PO SCH (08:30)
[2022-06-10] MEDS: Enoxaparin 40 MG/0.4 ML Syringe SUBCUT SCH (08:30)
[2022-06-10] MEDS: Cefdinir 300 MG Cap PO SCH ×3 (15:59→20:05)
[2022-06-10] MEDS: Mirtazapine 30 MG Tab PO SCH ×3 (19:48→20:06)
[2022-06-10] MEDS: Gabapentin 100 MG Cap PO SCH ×2 (19:48→20:05)
[2022-06-11] MEDS: Tamsulosin 0.4 MG Cap.ER PO SCH (09:01)
[2022-06-11] MEDS: Cefdinir 300 MG Cap PO SCH ×2 (09:01→20:34)
[2022-06-11] MEDS: Aspirin 81 MG Tab.Chew PO SCH (09:01)
[2022-06-11] MEDS: Furosemide 20 MG Tab PO SCH (09:01)
[2022-06-11] MEDS: Nitrofurantoin Monohydrate/Macrocrystalline 100 MG Cap PO SCH (09:01)
[2022-06-11] MEDS: Calcium Carbonate/Vitamin D3 1250 MG-5 MCG Tab PO SCH ×2 (09:01→20:34)
[2022-06-11] MEDS: Potassium Chloride 20 MEQ Tab.ER PO SCH (09:01)
[2022-06-11] MEDS: ABIRATERONE ACETATE 250 MG PO SCH (09:01)
[2022-06-11] MEDS: predniSONE 5 MG Tab PO SCH (09:01)
[2022-06-11] MEDS: Ferrous Sulfate 325 MG Tab PO SCH (09:01)
[2022-06-11] MEDS: Hypromellose 0.3% Ophth Soln 15 ML Bottle EYEBOTH SCH ×2 (09:01→20:37)
[2022-06-11] MEDS: Enoxaparin 40 MG/0.4 ML Syringe SUBCUT SCH (09:02)
[2022-06-11] MEDS: Gabapentin 100 MG Cap PO SCH (20:34)
[2022-06-11] MEDS: Mirtazapine 30 MG Tab PO SCH (20:34)
[2022-06-12] MEDS: ABIRATERONE ACETATE 250 MG PO SCH (08:32)
[2022-06-12] MEDS: Hypromellose 0.3% Ophth Soln 15 ML Bottle EYEBOTH SCH ×2 (08:33→20:00)
[2022-06-12] MEDS: Enoxaparin 40 MG/0.4 ML Syringe SUBCUT SCH (08:33)
[2022-06-12] MEDS: Furosemide 20 MG Tab PO SCH (08:33)
[2022-06-12] MEDS: Potassium Chloride 20 MEQ Tab.ER PO SCH (08:33)
[2022-06-12] MEDS: Calcium Carbonate/Vitamin D3 1250 MG-5 MCG Tab PO SCH ×2 (08:33→19:59)
[2022-06-12] MEDS: Aspirin 81 MG Tab.Chew PO SCH (08:33)
[2022-06-12] MEDS: Tamsulosin 0.4 MG Cap.ER PO SCH (08:34)
[2022-06-12] MEDS: predniSONE 5 MG Tab PO SCH (08:34)
[2022-06-12] MEDS: Ferrous Sulfate 325 MG Tab PO SCH (08:34)
[2022-06-12] MEDS: Cefdinir 300 MG Cap PO SCH ×2 (08:40→19:59)
[2022-06-12] MEDS: Gabapentin 100 MG Cap PO SCH (19:59)
[2022-06-12] MEDS: Mirtazapine 30 MG Tab PO SCH (20:00)
[2022-06-13] MEDS: Enoxaparin 40 MG/0.4 ML Syringe SUBCUT SCH (08:16)
[2022-06-13] MEDS: Calcium Carbonate/Vitamin D3 1250 MG-5 MCG Tab PO SCH ×2 (08:17→20:06)
[2022-06-13] MEDS: Cefdinir 300 MG Cap PO SCH ×2 (08:17→20:06)
[2022-06-13] MEDS: predniSONE 5 MG Tab PO SCH (08:17)
[2022-06-13] MEDS: Aspirin 81 MG Tab.Chew PO SCH (08:17)
[2022-06-13] MEDS: Potassium Chloride 20 MEQ Tab.ER PO SCH (08:17)
[2022-06-13] MEDS: Tamsulosin 0.4 MG Cap.ER PO SCH (08:17)
[2022-06-13] MEDS: Furosemide 20 MG Tab PO SCH (08:17)
[2022-06-13] MEDS: ABIRATERONE ACETATE 250 MG PO SCH (08:18)
[2022-06-13] MEDS: Hypromellose 0.3% Ophth Soln 15 ML Bottle EYEBOTH SCH ×2 (08:18→20:06)
[2022-06-13] MEDS: Ferrous Sulfate 325 MG Tab PO SCH (08:18)
[2022-06-13] MEDS: Mirtazapine 30 MG Tab PO SCH (20:06)
[2022-06-13] MEDS: Gabapentin 100 MG Cap PO SCH (20:06)
[2022-06-14] MEDS: Enoxaparin 40 MG/0.4 ML Syringe SUBCUT SCH (08:20)
[2022-06-14] MEDS: Hypromellose 0.3% Ophth Soln 15 ML Bottle EYEBOTH SCH ×3 (08:20→23:53)
[2022-06-14] MEDS: ABIRATERONE ACETATE 250 MG PO SCH (08:21)
[2022-06-14] MEDS: Potassium Chloride 20 MEQ Tab.ER PO SCH (08:22)
[2022-06-14] MEDS: Furosemide 20 MG Tab PO SCH (08:23)
[2022-06-14] MEDS: Ferrous Sulfate 325 MG Tab PO SCH (08:23)
[2022-06-14] MEDS: predniSONE 5 MG Tab PO SCH (08:23)
[2022-06-14] MEDS: Calcium Carbonate/Vitamin D3 1250 MG-5 MCG Tab PO SCH ×2 (08:23→20:00)
[2022-06-14] MEDS: Tamsulosin 0.4 MG Cap.ER PO SCH (08:23)
[2022-06-14] MEDS: Aspirin 81 MG Tab.Chew PO SCH (08:23)
[2022-06-14] MEDS: Cefdinir 300 MG Cap PO SCH ×2 (08:23→20:00)
[2022-06-14] MEDS: Acetaminophen 325 MG Tab PO PRN (15:54)
[2022-06-14] MEDS: Mirtazapine 30 MG Tab PO SCH ×2 (19:57→23:53)
[2022-06-14] MEDS: Gabapentin 100 MG Cap PO SCH (20:00)
[2022-06-15] MEDS: ABIRATERONE ACETATE 250 MG PO SCH (08:31)
[2022-06-15] MEDS: Hypromellose 0.3% Ophth Soln 15 ML Bottle EYEBOTH SCH ×2 (08:31→20:08)
[2022-06-15] MEDS: Tamsulosin 0.4 MG Cap.ER PO SCH (08:32)
[2022-06-15] MEDS: Furosemide 20 MG Tab PO SCH (08:32)
[2022-06-15] MEDS: Ferrous Sulfate 325 MG Tab PO SCH (08:33)
[2022-06-15] MEDS: predniSONE 5 MG Tab PO SCH (08:33)
[2022-06-15] MEDS: Aspirin 81 MG Tab.Chew PO SCH (08:33)
[2022-06-15] MEDS: Potassium Chloride 20 MEQ Tab.ER PO SCH (08:33)
[2022-06-15] MEDS: Enoxaparin 40 MG/0.4 ML Syringe SUBCUT SCH (08:33)
[2022-06-15] MEDS: Calcium Carbonate/Vitamin D3 1250 MG-5 MCG Tab PO SCH ×2 (08:33→20:04)
[2022-06-15] MEDS: Mirtazapine 30 MG Tab PO SCH (20:04)
[2022-06-15] MEDS: Gabapentin 100 MG Cap PO SCH (20:04)
[2022-06-16 06:16] VITALS: BP 116/59; PULSE 65
[2022-06-16] MEDS: Hypromellose 0.3% Ophth Soln 15 ML Bottle EYEBOTH SCH ×2 (08:57→20:33)
[2022-06-16] MEDS: ABIRATERONE ACETATE 250 MG PO SCH (08:57)
[2022-06-16] MEDS: Enoxaparin 40 MG/0.4 ML Syringe SUBCUT SCH (08:59)
[2022-06-16] MEDS: Potassium Chloride 20 MEQ Tab.ER PO SCH (09:00)
[2022-06-16] MEDS: Furosemide 20 MG Tab PO SCH (09:00)
[2022-06-16] MEDS: Calcium Carbonate/Vitamin D3 1250 MG-5 MCG Tab PO SCH ×2 (09:00→20:33)
[2022-06-16] MEDS: Tamsulosin 0.4 MG Cap.ER PO SCH (09:00)
[2022-06-16] MEDS: Ferrous Sulfate 325 MG Tab PO SCH (09:01)
[2022-06-16] MEDS: Aspirin 81 MG Tab.Chew PO SCH (09:01)
[2022-06-16] MEDS: predniSONE 5 MG Tab PO SCH (09:01)
[2022-06-16] MEDS: Gabapentin 100 MG Cap PO SCH (20:33)
[2022-06-16] MEDS: Mirtazapine 30 MG Tab PO SCH (20:33)
[2022-06-17] MEDS ORDERED: Calcium Carbonate/Vitamin D3 1250 MG-5 MCG Tab ONE (08:29)
[2022-06-17] MEDS ORDERED: predniSONE 5 MG Tab ONE (08:29)
[2022-06-17] MEDS ORDERED: Ferrous Sulfate 325 MG Tab ONE (08:29)
[2022-06-17] MEDS ORDERED: Gabapentin 100 MG Cap ONE (08:29)
[2022-06-17] MEDS ORDERED: Mirtazapine 30 MG Tab ONE (08:29)
[2022-06-17] MEDS ORDERED: cefTRIAXone 2 GM Vial ONE ×2 (08:29→20:00)
[2022-06-17] MEDS ORDERED: Aspirin 81 MG Tab.Chew ONE (08:29)
[2022-06-17] MEDS ORDERED: Enoxaparin 40 MG/0.4 ML Syringe ONE (08:29)
[2022-06-17] MEDS ORDERED: Potassium Chloride 20 MEQ Tab.ER ONE (08:29)
[2022-06-17] MEDS ORDERED: Furosemide 20 MG Tab ONE (08:29)
[2022-06-17] MEDS ORDERED: Tamsulosin 0.4 MG Cap.ER ONE (08:29)
[2022-06-18] MEDS ORDERED: Tamsulosin 0.4 MG Cap.ER ONE (07:35)
[2022-06-18] MEDS ORDERED: Ferrous Sulfate 325 MG Tab ONE (07:35)
[2022-06-18] MEDS ORDERED: Calcium Carbonate/Vitamin D3 1250 MG-5 MCG Tab ONE (07:35)
[2022-06-18] MEDS ORDERED: Furosemide 20 MG Tab ONE (07:35)
[2022-06-18] MEDS ORDERED: Gabapentin 100 MG Cap ONE (07:35)
[2022-06-18] MEDS ORDERED: predniSONE 5 MG Tab ONE (07:35)
[2022-06-18] MEDS ORDERED: Potassium Chloride 20 MEQ Tab.ER ONE (07:35)
[2022-06-18] MEDS ORDERED: Mirtazapine 30 MG Tab ONE (07:35)
[2022-06-18] MEDS ORDERED: Aspirin 81 MG Tab.Chew ONE (07:35)
[2022-06-18] MEDS ORDERED: Enoxaparin 40 MG/0.4 ML Syringe ONE (07:35)
[2022-06-18] MEDS ORDERED: cefTRIAXone 2 GM Vial ONE (19:32)
[2022-06-19] MEDS ORDERED: Ferrous Sulfate 325 MG Tab ONE (08:40)
[2022-06-19] MEDS ORDERED: Tamsulosin 0.4 MG Cap.ER ONE (08:40)
[2022-06-19] MEDS ORDERED: Mirtazapine 30 MG Tab ONE (08:40)
[2022-06-19] MEDS ORDERED: Enoxaparin 40 MG/0.4 ML Syringe ONE (08:40)
[2022-06-19] MEDS ORDERED: Calcium Carbonate/Vitamin D3 1250 MG-5 MCG Tab ONE (08:40)
[2022-06-19] MEDS ORDERED: Gabapentin 100 MG Cap ONE (08:40)
[2022-06-19] MEDS ORDERED: predniSONE 5 MG Tab ONE (08:40)
[2022-06-19] MEDS ORDERED: Aspirin 81 MG Tab.Chew ONE (08:40)
[2022-06-19] MEDS ORDERED: Potassium Chloride 20 MEQ Tab.ER ONE (08:40)
[2022-06-19] MEDS ORDERED: Furosemide 20 MG Tab ONE (08:40)
[2022-06-19] MEDS ORDERED: Piperacillin/Tazobactam 3.375 GM in Sodium Chloride 0.9% 100 ML IV ONE (13:57)
[2022-06-20] MEDS ORDERED: Piperacillin/Tazobactam 3.375 GM in Sodium Chloride 0.9% 100 ML IV ONE (02:17)
[2022-06-20] MEDS ORDERED: predniSONE 5 MG Tab ONE (08:21)
[2022-06-20] MEDS ORDERED: Ferrous Sulfate 325 MG Tab ONE (08:21)
[2022-06-20] MEDS ORDERED: Aspirin 81 MG Tab.Chew ONE (08:21)
[2022-06-20] MEDS ORDERED: Tamsulosin 0.4 MG Cap.ER ONE (08:21)
[2022-06-20] MEDS ORDERED: Enoxaparin 40 MG/0.4 ML Syringe ONE (08:21)
[2022-06-20] MEDS ORDERED: Potassium Chloride 20 MEQ Tab.ER ONE (08:21)
[2022-06-20] MEDS ORDERED: Gabapentin 100 MG Cap ONE (08:21)
[2022-06-20] MEDS ORDERED: Calcium Carbonate/Vitamin D3 1250 MG-5 MCG Tab ONE (08:21)
[2022-06-20] MEDS ORDERED: Mirtazapine 30 MG Tab ONE (08:21)
[2022-06-20] MEDS ORDERED: Furosemide 20 MG Tab ONE (08:21)
[2022-06-21] MEDS ORDERED: Piperacillin/Tazobactam 3.375 GM in Sodium Chloride 0.9% 100 ML IV ONE (02:17)
[2022-06-21] MEDS ORDERED: Tamsulosin 0.4 MG Cap.ER ONE (08:21)
[2022-06-21] MEDS ORDERED: predniSONE 5 MG Tab ONE (08:21)
[2022-06-21] MEDS ORDERED: Calcium Carbonate/Vitamin D3 1250 MG-5 MCG Tab ONE (08:21)
[2022-06-21] MEDS ORDERED: Enoxaparin 40 MG/0.4 ML Syringe ONE (08:21)
[2022-06-21] MEDS ORDERED: Furosemide 20 MG Tab ONE (08:21)
[2022-06-21] MEDS ORDERED: Aspirin 81 MG Tab.Chew ONE (08:21)
[2022-06-21] MEDS ORDERED: Ferrous Sulfate 325 MG Tab ONE (08:21)
[2022-06-21] MEDS ORDERED: Mirtazapine 30 MG Tab ONE (08:21)
[2022-06-21] MEDS ORDERED: Potassium Chloride 20 MEQ Tab.ER ONE (08:21)
[2022-06-21] MEDS ORDERED: Gabapentin 100 MG Cap ONE (08:21)
[2022-06-22] MEDS ORDERED: Piperacillin/Tazobactam 3.375 GM in Sodium Chloride 0.9% 100 ML IV ONE ×2
[2022-06-22] MEDS ORDERED: Sodium Chloride 0.9% 100 ML ONE ×3 (00:01→16:05)
[2022-06-22] MEDS ORDERED: Furosemide 20 MG Tab ONE (08:21)
[2022-06-22] MEDS ORDERED: Ferrous Sulfate 325 MG Tab ONE (08:21)
[2022-06-22] MEDS ORDERED: Mirtazapine 30 MG Tab ONE (08:21)
[2022-06-22] MEDS ORDERED: Potassium Chloride 20 MEQ Tab.ER ONE (08:21)
[2022-06-22] MEDS ORDERED: Gabapentin 100 MG Cap ONE (08:21)
[2022-06-22] MEDS ORDERED: Calcium Carbonate/Vitamin D3 1250 MG-5 MCG Tab ONE (08:21)
[2022-06-22] MEDS ORDERED: predniSONE 5 MG Tab ONE (08:21)
[2022-06-22] MEDS ORDERED: Aspirin 81 MG Tab.Chew ONE (08:21)
[2022-06-22] MEDS ORDERED: Enoxaparin 40 MG/0.4 ML Syringe ONE (08:21)
[2022-06-22] MEDS ORDERED: Tamsulosin 0.4 MG Cap.ER ONE (08:21)
[2022-06-23] MEDS ORDERED: Sodium Chloride 0.9% 100 ML ONE ×3 (00:02→16:11)
[2022-06-24] MEDS ORDERED: Sodium Chloride 0.9% 100 ML ONE ×4 (01:06→23:15)
[2022-06-25] MEDS ORDERED: Sodium Chloride 0.9% 100 ML ONE ×2 (08:25→16:22)
[2022-06-26] MEDS ORDERED: Sodium Chloride 0.9% 100 ML ONE ×2 (00:17→07:55)
== END 2022-06-28 13:15 | disposition home health service (06) | DRG 948 ==
LOC: VM.MS 13:11 → VM.ZCENSUS 06-17 12:15
PROVIDERS: ADMIT Family Medicine; ATTEND Family Medicine
DX: R53.1 Weakness (principal); I48.20 Chronic atrial fibrillation, unspecified; I50.32 Chronic diastolic (congestive) heart failure; G47.33 Obstructive sleep apnea (adult) (pediatric); F31.9 Bipolar disorder, unspecified; G62.9 Polyneuropathy, unspecified; Z66 Do not resuscitate; R33.9 Retention of urine, unspecified; Z79.82 Long term (current) use of aspirin; Z79.899 Other long term (current) drug therapy; Z95.0 Presence of cardiac pacemaker; Z85.46 Personal history of malignant neoplasm of prostate
CPT/HCPCS: 36415; 36600; 70450; 71045; 80048; 80053; 81001; 81003; 82803; 83735; 84132; 85025; 85652; 86140; 87086; 87088; 87186; 95851-GO; 97110-GP; 97116-GP; 97164-GP; 97165-GO; 97530-GP; 97535-GO; A9270-GY; J0696; J1650; J2543; J7512

== ENCOUNTER 2023-03-20 11:40 | Inpatient (IN) | payer MEDICARE, BC ==
[2023-03-20] MEDS ORDERED: cefTRIAXone 1 GM Vial IVPUSH ONE (11:54)
[2023-03-20] MEDS ORDERED: Sodium Chloride 0.9% 1,000 ML IV ONE (11:54)
[2023-03-20] MEDS ORDERED: Sodium Chloride 0.9% 10 ML Syringe FLUSH PRN (11:54)
[2023-03-20] MEDS ORDERED: Acetaminophen 650 MG Supp RECTAL ONE (11:57)
[2023-03-20 12:22] LABS: HEMATOCRIT 34.8 % (40.0-52.0); HEMOGLOBIN 11.4 g/dL (14.0-18.0); RED BLOOD CELL COUNT 3.74 x10^6/uL (4.5-6.0); WHITE BLOOD CELL COUNT,WBC 8.5 x10^3/uL (4.0-10.0)
[2023-03-20 12:23] LABS: BASOPHILS PERCENT AUTO 0.2 % (0.2-1.2); EOSINOPHILS ABSOLUTE AUTO 0.2 x10^3/uL (0.0-0.5); EOSINOPHILS PERCENT AUTO 1.8 % (0.0-4.0); LYMPHOCYTES ABSOLUTE AUTO 1.2 x10^3/uL (1.0-4.8); MEAN CORPUSCULAR HEMOGLOBIN 30.5 pg (26.0-32.0); MEAN CORPUSCULAR HGB CONC 32.8 g/dL (32.0-36.0); MONOCYTES ABSOLUTE AUTO 0.8 x10^3/uL (0.0-0.8); MONOCYTES PERCENT AUTO 9.9 % (2.0-11.0); NEUTROPHILS PERCENT AUTO 70.6 % (50.0-80.0); PLATELET COUNT,PLT 231 x10^3/uL (130-400)
[2023-03-20 12:27] LABS: BILIRUBIN,URINE NEGATIVE (NEGATIVE); COLOR,URINE YELLOW (YELLOW); GLUCOSE,URINE NEGATIVE (NEGATIVE); KETONES,URINE NEGATIVE (NEGATIVE); LEUKOCYTE ESTERASE,URINE NEGATIVE (NEGATIVE); NITRITE,URINE NEGATIVE (NEGATIVE); OCCULT BLOOD,URINE SMALL (NEGATIVE); PROTEIN,URINE 100 mg/dL (NEGATIVE); UROBILINOGEN,URINE 0.2 EU/dL (0.2)
[2023-03-20 12:34] LABS: APPEARANCE,URINE SLIGHTLY CLOUDY (CLEAR)
[2023-03-20 12:38] LABS: BACTERIA,URINE RARE /HPF (NOT SEEN); HYALINE CASTS,URINE FEW; MUCUS,URINE FEW /LPF (NOT SEEN); RBC,URINE 0-5 /HPF (NOT SEEN); SQUAMOUS EPITHELIAL CELLS,UR NOT SEEN /HPF (NOT SEEN); WBC,URINE 0-5 /HPF (NOT SEEN)
[2023-03-20 12:46] LABS: A/G RATIO 0.94; ALANINE AMINOTRANSFERASE,ALT 21 U/L (16-63); ALBUMIN 3.4 g/dL (3.4-5.0); ALKALINE PHOSPHATASE 63 U/L (46-116); ANION GAP 19.1 mmol/L (5-15); ASPARTATE AMNIOTRANSFERASE,AST 20 U/L (15-37); BILIRUBIN TOTAL 0.6 mg/dL (0.2-1.0); BLOOD UREA NITROGEN,BUN 17 mg/dL (7-18); C-REACTIVE PROTEIN 0.96 mg/dL (<=0.30); CALCIUM 8.6 mg/dL (8.5-10.1); CARBON DIOXIDE,CO2 22 mmol/L (21-32); CHLORIDE,CL 106 mmol/L (98-107); CREATININE 1.5 mg/dL (0.70-1.30); ESTIMATED GFR 46 mL/min (>=60); GLUCOSE RANDOM 110 mg/dL (70-99); POTASSIUM,K 4.1 mmol/L (3.5-5.1); SODIUM,NA 143 mmol/L (136-145)
[2023-03-20 12:48] LABS: LACTIC ACID 1.4 mmol/L (0.4-2.0)
[2023-03-20] MEDS ORDERED: Furosemide 40 MG/4 ML VIAL IV ONE (13:20)
[2023-03-20 14:17] LABS: CORONAVIRUS COVID-19 NAA NEGATIVE (NEGATIVE)
[2023-03-20 14:18] LABS: INFLUENZA A NAA NEGATIVE (NEGATIVE); INFLUENZA B NAA NEGATIVE (NEGATIVE); RESPIRATORY SYNCYTIAL VIR NAA NEGATIVE (NEGATIVE)
[2023-03-20] MEDS ORDERED: Ondansetron 4 MG Tab.DIS PO PRN (16:13)
[2023-03-20] MEDS ORDERED: Acetaminophen 325 MG Tab PO PRN (16:13)
[2023-03-20] MEDS: predniSONE 5 MG Tab PO SCH (18:25)
[2023-03-20] MEDS: Gabapentin 100 MG Cap PO SCH (20:52)
[2023-03-20] MEDS: Mirtazapine 30 MG Tab PO SCH (20:52)
[2023-03-20] MEDS: Hypromellose 0.3% Ophth Soln 15 ML Bottle EYEBOTH SCH (20:52)
[2023-03-20] MEDS: Heparin Sodium 5,000 Units/ML Vial SUBCUT SCH (21:01)
[2023-03-21] MEDS: Heparin Sodium 5,000 Units/ML Vial SUBCUT SCH ×3 (05:56→21:59)
[2023-03-21 06:58] LABS: BASOPHILS PERCENT AUTO 0.1 % (0.2-1.2); EOSINOPHILS PERCENT AUTO 0.3 % (0.0-4.0); HEMATOCRIT 34.4 % (40.0-52.0); HEMOGLOBIN 11.3 g/dL (14.0-18.0); IMMATURE GRAN ABSOLUTE AUTO 0.18 x10^3/uL (0.00-0.07); LYMPHOCYTES PERCENT AUTO 11.6 % (25.0-50.0); MEAN CORPUSCULAR HEMOGLOBIN 30.4 pg (26.0-32.0); MEAN CORPUSCULAR HGB CONC 32.8 g/dL (32.0-36.0); MEAN CORPUSCULAR VOLUME 92.5 fL (78.0-93.0); MONOCYTES ABSOLUTE AUTO 0.9 x10^3/uL (0.0-0.8); MONOCYTES PERCENT AUTO 9.8 % (2.0-11.0); NEUTROPHILS ABSOLUTE AUTO 6.9 x10^3/uL (1.8-7.7); NEUTROPHILS PERCENT AUTO 76.2 % (50.0-80.0); PLATELET COUNT,PLT 215 x10^3/uL (130-400); RED BLOOD CELL COUNT 3.72 x10^6/uL (4.5-6.0)
[2023-03-21] MEDS ORDERED: Flumazenil 0.1 MG/ML 5 ML MDV IVPUSH PRN (07:17)
[2023-03-21] MEDS ORDERED: LORazepam 2 MG/ML SDV IVPUSH PRN (07:17)
[2023-03-21 07:32] LABS: A/G RATIO 0.97; ALBUMIN 3.3 g/dL (3.4-5.0); ANION GAP 15.7 mmol/L (5-15); BILIRUBIN TOTAL 0.6 mg/dL (0.2-1.0); CALCIUM 8.4 mg/dL (8.5-10.1); CREATININE 1.5 mg/dL (0.70-1.30); EST CRCL DRUG DOSING (CG) 41.14 mL/min; POTASSIUM,K 3.7 mmol/L (3.5-5.1); PROTEIN TOTAL,TP 6.7 g/dL (6.4-8.2)
[2023-03-21] MEDS: cefTRIAXone 1 GM Vial IVPUSH SCH (09:49)
[2023-03-21] MEDS: Furosemide 40 MG/4 ML VIAL IV SCH (09:49)
[2023-03-21] MEDS: Potassium Chloride 20 MEQ Tab.ER PO SCH (09:50)
[2023-03-21] MEDS: Cholecalciferol (Vitamin D3) 10 MCG Tab PO SCH (09:50)
[2023-03-21] MEDS: predniSONE 5 MG Tab PO SCH ×2 (09:50→17:40)
[2023-03-21] MEDS: Tamsulosin 0.4 MG Cap.ER PO SCH (09:50)
[2023-03-21] MEDS: Gabapentin 100 MG Cap PO SCH ×2 (09:50→21:59)
[2023-03-21] MEDS: Hypromellose 0.3% Ophth Soln 15 ML Bottle EYEBOTH SCH ×2 (09:51→21:59)
[2023-03-21] MEDS: Abiraterone Acetate [Zytiga] 250 MG Tablet PO SCH (14:32)
[2023-03-21] MEDS: Sennosides 8.6 MG Tab PO SCH (21:59)
[2023-03-21] MEDS: Mirtazapine 30 MG Tab PO SCH (21:59)
[2023-03-22] MEDS: Heparin Sodium 5,000 Units/ML Vial SUBCUT SCH ×3 (06:39→22:10)
[2023-03-22 08:10] LABS: CALCIUM 8.1 mg/dL (8.5-10.1); CREATININE 1.6 mg/dL (0.70-1.30); EST CRCL DRUG DOSING (CG) 38.57 mL/min; POTASSIUM,K 3.1 mmol/L (3.5-5.1)
[2023-03-22 08:18] LABS: ANION GAP 15.1 mmol/L (5-15)
[2023-03-22] MEDS: predniSONE 5 MG Tab PO SCH ×2 (08:44→18:00)
[2023-03-22] MEDS: Gabapentin 100 MG Cap PO SCH ×2 (08:44→20:14)
[2023-03-22] MEDS: Potassium Chloride 20 MEQ Tab.ER PO SCH (08:44)
[2023-03-22] MEDS: Cholecalciferol (Vitamin D3) 10 MCG Tab PO SCH (08:45)
[2023-03-22] MEDS: Hypromellose 0.3% Ophth Soln 15 ML Bottle EYEBOTH SCH ×2 (08:46→20:14)
[2023-03-22] MEDS: Tamsulosin 0.4 MG Cap.ER PO SCH (08:46)
[2023-03-22] MEDS: Abiraterone Acetate [Zytiga] 250 MG Tablet PO SCH (08:47)
[2023-03-22] MEDS: cefTRIAXone 1 GM Vial IVPUSH SCH (08:48)
[2023-03-22] MEDS: Furosemide 40 MG/4 ML VIAL IV SCH (08:48)
[2023-03-22] MEDS: Sennosides 8.6 MG Tab PO SCH ×2 (08:49→22:28)
[2023-03-22] MEDS ORDERED: Potassium Chloride 20 MEQ Tab.ER PO ONE (17:00)
[2023-03-22] MEDS: Mirtazapine 30 MG Tab PO SCH (20:14)
[2023-03-23] MEDS: Heparin Sodium 5,000 Units/ML Vial SUBCUT SCH ×2 (05:51→12:40)
[2023-03-23 07:57] LABS: CALCIUM 8.2 mg/dL (8.5-10.1); CREATININE 1.7 mg/dL (0.70-1.30); EST CRCL DRUG DOSING (CG) 36.3 mL/min
[2023-03-23 08:00] LABS: ANION GAP 15.9 mmol/L (5-15); POTASSIUM,K 2.9 mmol/L (3.5-5.1)
[2023-03-23] MEDS ORDERED: Amoxicillin/Clavulanate K 875-125 MG Tab PO SCH (08:00)
[2023-03-23] MEDS: Gabapentin 100 MG Cap PO SCH (08:19)
[2023-03-23] MEDS: Potassium Chloride 20 MEQ Tab.ER PO SCH (08:20)
[2023-03-23] MEDS: predniSONE 5 MG Tab PO SCH ×2 (08:20→17:57)
[2023-03-23] MEDS: Tamsulosin 0.4 MG Cap.ER PO SCH (08:21)
[2023-03-23] MEDS: Cholecalciferol (Vitamin D3) 10 MCG Tab PO SCH (08:21)
[2023-03-23] MEDS: Sennosides 8.6 MG Tab PO SCH (08:22)
[2023-03-23] MEDS: Hypromellose 0.3% Ophth Soln 15 ML Bottle EYEBOTH SCH (08:24)
[2023-03-23] MEDS: Abiraterone Acetate [Zytiga] 250 MG Tablet PO SCH (08:24)
[2023-03-23] MEDS ORDERED: Potassium Chloride 20 MEQ Tab.ER PO SCH (12:00)
[2023-03-23 12:50] VITALS: BP 114/54; PULSE 89
[2023-03-24] MEDS ORDERED: Potassium Chloride 20 MEQ Tab.ER PO SCH (08:00)
== END 2023-03-23 12:55 | disposition swing bed (61) | DRG 602 ==
LOC: VM.ED 11:40 → VM.MS 13:29
PROVIDERS: ADMIT Family Medicine; ATTEND Family Medicine
DX: L03.213 Periorbital cellulitis (principal); I50.33 Acute on chronic diastolic (congestive) heart failure; J18.9 Pneumonia, unspecified organism; I48.20 Chronic atrial fibrillation, unspecified; R53.1 Weakness; Z66 Do not resuscitate; Z20.822 Contact with and (suspected) exposure to COVID-19; R32 Unspecified urinary incontinence; G47.33 Obstructive sleep apnea (adult) (pediatric); I50.9 Heart failure, unspecified; H00.014 Hordeolum externum left upper eyelid; F31.9 Bipolar disorder, unspecified; E53.8 Deficiency of other specified B group vitamins; G62.9 Polyneuropathy, unspecified; I48.91 Unspecified atrial fibrillation; D64.9 Anemia, unspecified; Z95.0 Presence of cardiac pacemaker; Z86.16 Personal history of COVID-19; Z98.890 Other specified postprocedural states; Z98.49 Cataract extraction status, unspecified eye; Z79.899 Other long term (current) drug therapy; Z85.46 Personal history of malignant neoplasm of prostate; Z85.830 Personal history of malignant neoplasm of bone; Z79.82 Long term (current) use of aspirin; Z87.891 Personal history of nicotine dependence
CPT/HCPCS: 0241U; 36415; 70450; 71045; 80048; 80053; 81001; 83605; 83880; 84145; 85025; 86140; 87040; 96365; 96375; 97162; 97530; 99284; 99285; A9270-GY; J0696; J1644; J1940; J3370; J7030; J7050; J7512

== ENCOUNTER 2023-03-23 12:55 | Inpatient (IN) | payer MEDICARE, BC ==
[2023-03-23] MEDS ORDERED: Acetaminophen 325 MG Tab PO PRN (13:54)
[2023-03-23] MEDS ORDERED: Flumazenil 0.1 MG/ML 5 ML MDV IVPUSH PRN (14:16)
[2023-03-23] MEDS ORDERED: LORazepam 2 MG/ML SDV IVPUSH PRN (14:16)
[2023-03-23] MEDS ORDERED: Ondansetron 4 MG Tab.DIS PO PRN (14:21)
[2023-03-23] MEDS ORDERED: LORazepam 1 MG Tab PO PRN (14:22)
[2023-03-23] MEDS: predniSONE 5 MG Tab PO SCH (19:22)
[2023-03-23] MEDS: Gabapentin 100 MG Cap PO SCH (20:24)
[2023-03-23] MEDS: Potassium Chloride 20 MEQ Tab.ER PO SCH (20:25)
[2023-03-23] MEDS: Mirtazapine 30 MG Tab PO SCH (20:25)
[2023-03-23] MEDS: Hypromellose 0.3% Ophth Soln 15 ML Bottle EYEBOTH SCH (20:25)
[2023-03-23] MEDS: Amoxicillin/Clavulanate K 875-125 MG Tab PO SCH (20:25)
[2023-03-24 07:18] LABS: CALCIUM 8.2 mg/dL (8.5-10.1); CREATININE 1.6 mg/dL (0.70-1.30); EST CRCL DRUG DOSING (CG) 38.57 mL/min; POTASSIUM,K 3.6 mmol/L (3.5-5.1)
[2023-03-24 07:23] LABS: ANION GAP 16.6 mmol/L (5-15)
[2023-03-24] MEDS: Tamsulosin 0.4 MG Cap.ER PO SCH (08:36)
[2023-03-24] MEDS: Cholecalciferol (Vitamin D3) 10 MCG Tab PO SCH (08:36)
[2023-03-24] MEDS: Gabapentin 100 MG Cap PO SCH ×2 (08:36→20:08)
[2023-03-24] MEDS: Aspirin 81 MG Tab.EC PO SCH (08:36)
[2023-03-24] MEDS: predniSONE 5 MG Tab PO SCH ×2 (08:36→17:45)
[2023-03-24] MEDS: Amoxicillin/Clavulanate K 875-125 MG Tab PO SCH ×2 (08:36→20:08)
[2023-03-24] MEDS: Potassium Chloride 20 MEQ Tab.ER PO SCH ×2 (08:37→20:08)
[2023-03-24] MEDS: Hypromellose 0.3% Ophth Soln 15 ML Bottle EYEBOTH SCH ×2 (08:38→20:07)
[2023-03-24] MEDS: Mirtazapine 30 MG Tab PO SCH (20:08)
[2023-03-25] MEDS: predniSONE 5 MG Tab PO SCH ×2 (09:14→18:00)
[2023-03-25] MEDS: Tamsulosin 0.4 MG Cap.ER PO SCH (09:14)
[2023-03-25] MEDS: Aspirin 81 MG Tab.EC PO SCH (09:14)
[2023-03-25] MEDS: Potassium Chloride 20 MEQ Tab.ER PO SCH ×2 (09:15→21:00)
[2023-03-25] MEDS: Amoxicillin/Clavulanate K 875-125 MG Tab PO SCH ×2 (09:15→21:00)
[2023-03-25] MEDS: Gabapentin 100 MG Cap PO SCH ×2 (09:17→21:00)
[2023-03-25] MEDS: Cholecalciferol (Vitamin D3) 10 MCG Tab PO SCH (09:17)
[2023-03-25] MEDS: Hypromellose 0.3% Ophth Soln 15 ML Bottle EYEBOTH SCH ×2 (09:17→21:00)
[2023-03-25] MEDS: Mirtazapine 30 MG Tab PO SCH (21:01)
[2023-03-26] MEDS: Potassium Chloride 20 MEQ Tab.ER PO SCH ×2 (09:20→20:13)
[2023-03-26] MEDS: Cholecalciferol (Vitamin D3) 10 MCG Tab PO SCH (09:20)
[2023-03-26] MEDS: Aspirin 81 MG Tab.EC PO SCH (09:20)
[2023-03-26] MEDS: Amoxicillin/Clavulanate K 875-125 MG Tab PO SCH ×2 (09:21→20:13)
[2023-03-26] MEDS: Tamsulosin 0.4 MG Cap.ER PO SCH (09:21)
[2023-03-26] MEDS: predniSONE 5 MG Tab PO SCH ×2 (09:21→18:15)
[2023-03-26] MEDS: Gabapentin 100 MG Cap PO SCH ×2 (09:21→20:13)
[2023-03-26] MEDS: Hypromellose 0.3% Ophth Soln 15 ML Bottle EYEBOTH SCH ×2 (09:22→20:19)
[2023-03-26] MEDS: Mirtazapine 30 MG Tab PO SCH (20:14)
[2023-03-27] MEDS: Amoxicillin/Clavulanate K 875-125 MG Tab PO SCH ×2 (08:53→20:47)
[2023-03-27] MEDS: predniSONE 5 MG Tab PO SCH ×2 (08:53→17:32)
[2023-03-27] MEDS: Aspirin 81 MG Tab.EC PO SCH (08:54)
[2023-03-27] MEDS: Potassium Chloride 20 MEQ Tab.ER PO SCH ×2 (08:54→20:45)
[2023-03-27] MEDS: Tamsulosin 0.4 MG Cap.ER PO SCH (08:55)
[2023-03-27] MEDS: Cholecalciferol (Vitamin D3) 10 MCG Tab PO SCH (08:55)
[2023-03-27] MEDS: Gabapentin 100 MG Cap PO SCH ×2 (08:56→20:47)
[2023-03-27] MEDS: Hypromellose 0.3% Ophth Soln 15 ML Bottle EYEBOTH SCH ×2 (08:57→20:46)
[2023-03-27] MEDS: Mirtazapine 30 MG Tab PO SCH (20:47)
[2023-03-28 05:37] VITALS: BP 134/76; PULSE 62
[2023-03-28] MEDS: Potassium Chloride 20 MEQ Tab.ER PO SCH (09:07)
[2023-03-28] MEDS: Gabapentin 100 MG Cap PO SCH (09:07)
[2023-03-28] MEDS: predniSONE 5 MG Tab PO SCH (09:07)
[2023-03-28] MEDS: Cholecalciferol (Vitamin D3) 10 MCG Tab PO SCH (09:07)
[2023-03-28] MEDS: Tamsulosin 0.4 MG Cap.ER PO SCH (09:07)
[2023-03-28] MEDS: Aspirin 81 MG Tab.EC PO SCH (09:08)
[2023-03-28] MEDS: Hypromellose 0.3% Ophth Soln 15 ML Bottle EYEBOTH SCH (09:08)
== END 2023-03-28 10:05 | DRG 948 ==
LOC: VM.MS 12:55
PROVIDERS: ADMIT Family Medicine; ATTEND Family Medicine
DX: R53.1 Weakness (principal); I50.32 Chronic diastolic (congestive) heart failure; L03.211 Cellulitis of face; N17.9 Acute kidney failure, unspecified; C61 Malignant neoplasm of prostate; I48.0 Paroxysmal atrial fibrillation; F31.9 Bipolar disorder, unspecified; G47.33 Obstructive sleep apnea (adult) (pediatric); E53.8 Deficiency of other specified B group vitamins; H00.014 Hordeolum externum left upper eyelid; E55.9 Vitamin D deficiency, unspecified; Z79.52 Long term (current) use of systemic steroids; Z79.82 Long term (current) use of aspirin; Z79.899 Other long term (current) drug therapy; Z95.0 Presence of cardiac pacemaker; Z86.16 Personal history of COVID-19
CPT/HCPCS: 36415; 80048; 95851-GO; 97110-GP; 97165-GO; 97530-GP; A9270-GY; J7512